=== PATIENT | female | born 1975 | race Caucasian/White ===

== ENCOUNTER → 2019-10-10 | Outpatient (CLI) | payer MEDICARE, MEDICAID, SELFPAY | PROVIDERS: Family Provider Nurse Practitioner Family; PCP Nurse Practitioner Family; Referring Provider Specialist; Visit Provider Specialist | DX: G35 Multiple sclerosis (principal) | CPT/HCPCS: 36415; 96365; 96366; J2350; J2930; J7040 ==

== ENCOUNTER 2019-11-07 19:48 | Emergency (ER) | payer MEDICARE, MEDICAID, SELFPAY ==
[2019-11-07 19:56] VITALS: BP 83/68; PULSE 90; RESP 18; TEMP 36.4; O2SAT 96; BMI 36.2
--- NOTE | 2019-11-07 21:01 | ED_ITS ---
Entered by Abbey Dutta, acting as scribe for Nia Vasquez HPI - Fever General: Chief Complaint: Fever Stated Complaint: fever/possible uti Time Seen by Provider: 11/07/19 21:01 Source: patient and family Mode of arrival: ambulatory History of Present Illness: HPI Narrative: 44 y/o female presents to the ED with complaint of fever. Pt states she has been recovering from a cough for the past month. It has progressively improved and is now nearly gone. She reports having abd pain that started 3 days ago. Last night she started having chills and fever. 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 Pt states she has a hx of MS and fibromyalgia. Pts bp rechecked during exam, 134/84. She also complains of burning when she urinates and urinary frequency and urgency. She states that she does not have any abdominal pain only the urinary symptoms. MD elicited complaint: fever Onset (ago): day(s) (last night) Associated symptoms: Reports abdominal pain, back/flank pain, chills and myalgias; Deny chest pain, confusion, diarrhea, dysuria, extremity pain, headache(s), nausea or vomiting Treatments prior to arrival fever: ibuprofen Review of Systems General: Reports: other (negative unless marked) Const: Reports: chills; Denies: fever, body aches, fatigue, malaise or diaphoresis Eyes: Denies: change in vision or blurry vision ENMT: Denies: throat pain, painful swallowing, hoarseness, ear pain, ear discharge, Change in hearing or nasal discharge Card: Denies: chest pain, palpitations, irregular heart rhythm, syncope, pre- syncope, shortness of breath on exertion or shortness of breath when lying down Resp: Denies: shortness of breath, productive cough, non-productive cough, wheezing, coughing up blood or chest congestion GI: Reports: abdominal pain; Denies: nausea, vomiting, vomiting blood, coffee grounds in vomit, diarrhea, constipation, cramping, blood in stool or black tarry stool : Reports: flank pain; Denies: painful urination, urinary frequency, urinary urgency, decreased urine ouput, urinary incontinence or blood in urine Musc: Denies: neck pain, back pain, extremity pain, extremity swelling, joint pain, joint swelling, joint warmth or joint stiffness Skin/Breast: Denies: rash, skin tenderness or yellow skin Neuro: Denies: headache, numbness in extremities, weakness in extremities, changes in sensation, lack of coordination, difficulty walking, dizziness, vertigo or confusion Endo: Denies: excessive thirst, tired all the time, cold intolerance, excessive sweating, flushing or hot flashes Floyd/Lymph: Denies: easy bruising, easy bleeding, petechiae or enlarged lymph nodes All/Imm: Denies: hives, throat swelling, tongue swelling, facial swelling or acute wheezing PFSH ED PFSH: Statuses (acute, chronic, etc) shown below reflect problem list status as previously entered and may not be historically accurate Medical History Bipolar disorder, current episode depressed, severe, without psychotic features (Acute) Borderline personality disorder (Acute) Chronic posttraumatic stress disorder (Acute) Cigarette nicotine dependence (Acute) Generalized anxiety disorder (Acute) Other obsessive-compulsive disorder (Acute) Panic disorder without agoraphobia (Acute) Social History Smoking and tobacco status: current every day smoker Physical Exam Const: COMMON NORMALS: no apparent distress, oriented x3, no limitations, healthy appearing and well nourished EXAM LIMITATIONS: no altered mental status GENERAL APPEARANCE: cooperative, well kempt and well developed ORIENTATION/CONSCIOUSNESS: Yes awake HENMT: COMMON NORMALS: normocephalic, head/scalp atraumatic, hearing grossly normal bilaterally, external ears normal, EAC's normal, external nose normal and moist oral mucous membranes HEAD & SCALP: normal to inspection, normocephalic and atraumatic FACE & SINUS: normal facial exam and face symmetric NOSE: external nose normal and nares normal EXTERNAL EAR: Yes external ears normal EXTERNAL AUDITORY CANAL: EAC's normal MOUTH: oral and palatal mucosa normal and tongue normal Eye: COMMON NORMALS: PERRL, EOMs intact bilaterally, conjunctivae normal and no scleral icterus GENERAL EYE: normal appearance of both eyes and normal light reflex CONJUNCTIVA: Yes conjunctivae normal SCLERA: sclerae normal CORNEA: Yes corneas normal PUPIL: Yes PERRL DIRECT OPHTHALMOSCOPY: Yes normal light reflex Neck/C-Spine: COMMON NORMALS: full ROM, no lymphadenopathy, supple, no meningeal signs and no JVD GENERAL: Yes normal visual inspection and Yes trachea midline CERVICAL SPINE: Yes cervical ROM normal Chest: COMMONS NORMALS: inspection of chest normal and palpation of chest normal Resp: COMMON NORMALS: normal respiratory effort, no retractions, no use of accessory muscles and clear to auscultation bilaterally EFFORT & INSPECTION: Yes able to speak in complete sentences AUSCULTATION: clear to auscultation bilaterally Cardio: COMMON NORMALS: no JVD, regular rate, regular rhythm, S1 normal heart sound, S2 normal heart sound, no gallops, no clicks, no murmurs and no rub JUGULAR VENOUS DISTENTION: no JVD RATE: regular rate RHYTHM: regular rhythm HEART SOUNDS: S1 normal and S2 normal GI: COMMON NORMALS: soft to palpation, non-tender, no hepatosplenomegaly and no masses INSPECTION: Yes normal to inspection PALPATION: Yes soft and Yes no hepatosplenomegaly : COMMON NORMALS: Yes no CVA tenderness BLADDER/KIDNEY EXAM: Yes no CVA tenderness Back/Pelvis: COMMON NORMALS: no CVA tenderness, thoracic and lumbar spine normal to inspection, no thoracic nor lumbar tenderness and thoraco-lumbar ROM normal Extremity: COMMON NORMALS: normal to inspection, full ROM, normal capillary refill, no joint enlargement, no clubbing, cyanosis or edema and no calf tenderness Neuro: COMMON NORMALS: oriented x3, CN's II-XII intact bilaterally, moves all extremities, no focal motor deficits and no sensory deficits noted MENINGEAL SIGNS: Yes no meningeal signs Psych: COMMON NORMALS: mental status grossly normal, thought process normal, cooperative, affect normal, speech normal and activity/motor behavior normal APPEARANCE: Yes well kempt SPEECH: Yes normal speech THOUGHT PROCESS: normal thought process Skin: COMMON NORMALS: no rashes or lesions noted, skin turgor normal, no jaundice, no petechiae and no mottling GENERAL SKIN EXAM: no rashes or lesions noted and turgor normal Course Vital Signs: Vital signs: Vital Signs Temperature 97.6 F 11/07/19 19:56 Pulse Rate 90 11/07/19 19:56 Respiratory Rate 18 11/07/19 19:56 Blood Pressure 83/68 11/07/19 19:56 Pulse Oximetry 96 11/07/19 19:56 MDM - Fever MDM Narrative: Medical decision making narrative: Odalys is a 44-year-old female who comes in complaining of fever and urinary frequency and urgency. Her CT scan was performed secondary to her having MS piña on board and I did not want to miss any occult intra-abdominal problem. The patient's appendix was not seen but she does not believe she has an appendix that she believes it was taken when she had her hysterectomy. There is no signs of appendicitis on CT. She is adamant that this is just a UTI and wants to go home. We will go ahead and give her fluids here, IV antibiotics and oral antibiotics for home. She denies wanting anything else done she does agree to return should her symptoms change or worsen. Lab Data: Attestation: I reviewed the patient's lab results. Labs: Lab Results 11/07/19 11/07/19 11/07/19 Range/Units 20:53 20:53 21:20 WBC 11.5 H (4.0-10.0) 10^3/ uL RBC 4.27 (4.1-5.3) 10^6/u L Hgb 13.3 (11.5-15.3) g/dL Hct 41.0 (37.0-47.0) % MCV 96.0 (81-99) fL MCH 31.1 (28.0-34.0) pg MCHC 32.4 (30.0-36.0) g/dL RDW 12.3 (12.1-15.1) % Plt Count 306 (130-400) 10^3/c mm MPV 10.0 (7.4-10.4) fL Neut % (Auto) 64.0 % Lymph % (Auto) 26.4 % [place] % (Auto) 7.0 % Eos % (Auto) 1.8 % Baso % (Auto) 0.5 % Neut # (Auto) 7.4 (1.8-7.7) 10^3/u L Lymph # (Auto) 3.0 (0.8-4.8) 10^3/u L [place] # (Auto) 0.8 (0.2-0.9) 10^3/u L Eos # (Auto) 0.2 (0.0-0.8) 10^3/u L Baso # (Auto) 0.1 (0.0-0.1) 10^3/u L Nucleated RBC % (a uto) 0 % Nucleated RBCs # 0.0 /100WBC Sodium (136-145) mmol/L Potassium (3.5-5.1) mmol/L Chloride (98-107) mmol/L Carbon Dioxide (22-29) mmol/L Anion Gap (5-19) BUN (6-20) mg/dL Creatinine (0.5-0.9) mg/dL GFR Calculation (90-130) mL/min Glucose (74-109) mg/dL Lactic Acid (0.5-2.2) mmol/L Calcium (8.6-10.0) mg/Dl Magnesium (1.7-2.3) mg/dL Total Bilirubin (0.15-1.2) mg/dL AST (0-32) U/L ALT (0-33) U/L Alkaline Phosphata se (35-105) IU/L Total Protein (6.6-8.7) g/dL Albumin (3.5-5.2) g/dL Globulin (1.3-4.6) g/dL Lipase (13-60) U/L HCG, Qual Negative (Negative) Urine Color Yellow (Yellow) Urine Appearance Hazy A (CLEAR) Urine pH 5 (5-7) Ur Specific Gravit y 1.025 (1.005-1.030) Urine Protein Trace (Negative) Urine Glucose (UA) Norm (Normal) Urine Ketones Negative (Negative) Urine Occult Blood 3+ H (Negative) Urine Nitrate Negative (Negative) Urine Bilirubin Neg (NEGATIVE) Urine Urobilinogen Norm (Negative) mg/dL Ur Leukocyte Yuliet ase Trace H (Negative) Urine RBC 0-4 H (0-2) /hpf Urine WBC 15-25 H (0-5) /hpf Ur Squamous Epith Cells 5-10 H (0-5) Urine Bacteria 2+ H (NONE) 11/07/19 11/07/19 Range/Units 21:20 21:20 WBC (4.0-10.0) 10^3/ uL RBC (4.1-5.3) 10^6/u L Hgb (11.5-15.3) g/dL Hct (37.0-47.0) % MCV (81-99) fL MCH (28.0-34.0) pg MCHC (30.0-36.0) g/dL RDW (12.1-15.1) % Plt Count (130-400) 10^3/c mm MPV (7.4-10.4) fL Neut % (Auto) % Lymph % (Auto) % [place] % (Auto) % Eos % (Auto) % Baso % (Auto) % Neut # (Auto) (1.8-7.7) 10^3/u L Lymph # (Auto) (0.8-4.8) 10^3/u L [place] # (Auto) (0.2-0.9) 10^3/u L Eos # (Auto) (0.0-0.8) 10^3/u L Baso # (Auto) (0.0-0.1) 10^3/u L Nucleated RBC % (a uto) % Nucleated RBCs # /100WBC Sodium 137 (136-145) mmol/L Potassium 3.5 (3.5-5.1) mmol/L Chloride 102 (98-107) mmol/L Carbon Dioxide 26 (22-29) mmol/L Anion Gap 12.5 (5-19) BUN 12 (6-20) mg/dL Creatinine 1.0 H (0.5-0.9) mg/dL GFR Calculation 59.7 L (90-130) mL/min Glucose 115 H (74-109) mg/dL Lactic Acid 1.2 (0.5-2.2) mmol/L Calcium 10.1 H (8.6-10.0) mg/Dl Magnesium 2.2 (1.7-2.3) mg/dL Total Bilirubin 0.2 (0.15-1.2) mg/dL AST 13 (0-32) U/L ALT 14 (0-33) U/L Alkaline Phosphata se 102 (35-105) IU/L Total Protein 7.2 (6.6-8.7) g/dL Albumin 4.3 (3.5-5.2) g/dL Globulin 2.9 (1.3-4.6) g/dL Lipase 17 (13-60) U/L HCG, Qual (Negative) Urine Color (Yellow) Urine Appearance (CLEAR) Urine pH (5-7) Ur Specific Gravit y (1.005-1.030) Urine Protein (Negative) Urine Glucose (UA) (Normal) Urine Ketones (Negative) Urine Occult Blood (Negative) Urine Nitrate (Negative) Urine Bilirubin (NEGATIVE) Urine Urobilinogen (Negative) mg/dL Ur Leukocyte Yuliet ase (Negative) Urine RBC (0-2) /hpf Urine WBC (0-5) /hpf Ur Squamous Epith Cells (0-5) Urine Bacteria (NONE) Discharge Plan Discharge Patient Disposition: Home, Self-Care Clinical Impression: UTI (urinary tract infection) Qualifiers: Urinary tract infection type: acute cystitis Hematuria presence: without hematuria Qualified Code(s): N30.00 - Acute cystitis without hematuria Condition: Stable Prescriptions: New Cipro 500 mg tablet 500 mg PO BID Qty: 20 RF: 0 No Action oxycodone 15 mg tablet 15 mg PO Q6H PRNRF: 0 aripiprazole [Abilify] 20 mg tablet 20 mg PO .QHS RF: 0 duloxetine [Cymbalta] 60 mg capsule,delayed release(DR/EC) 60 mg PO .EVENING RF: 0 hydroxyzine HCl 50 mg tablet 50 mg PO BID PRN (Reason: anxiety) RF: 0 trazodone 150 mg tablet See Rx Instructions PO .QHS PRN (Reason: sleep) RF: 0 methylphenidate HCl [Ritalin] 20 mg tablet 20 mg PO QAM RF: 0 baclofen 5 mg tablet 5 mg PO QID RF: 0 Discharge Orders: Discharge Order (Routine); Ordered 11/07/19 Ordered By: Nia Vasquez Referrals: Giacomo Mojica, STRATEGIC PLANNING SPECIALIST [Primary Care Provider] - 1-3 days Discharge Diet: Usual diet Discharge Activity: Increase activity as tolerated Patient Instructions: Urinary Tract Infection in Women (ED), Dysuria (ED) Activity Restrictions/Additional Instructions: Please return to the ER immediately for any of the signs or symptoms listed on your discharge instruction sheets, worsening/changing of your symptoms, you are not getting better as quickly as expected, or for ANY other cause or concerns. Return to the ER for worsening pain, fever, vomiting, or for any other cause for concern. Coding Level of Care Code ED Educational Adviser for Chg Fwd Exam Problem Focused The documentation recorded by the Tra gresham Ashley, accurately reflects the service I personally performed and the decisions made by Pedro najera Eli N Nov 07, 2019 19:48
--- NOTE | 2019-11-07 21:07 | CTR_ITS ---
PROCEDURE INFORMATION: Exam: CT Abdomen And Pelvis With Contrast Exam date and time: 11/07/2019 9:09 PM Age: 44 years old Clinical indication: Fever and other: UTI; Additional info: Abdominal pain TECHNIQUE: Imaging protocol: Computed tomography of the abdomen and pelvis with intravenous contrast. Total DLP: 1372.65 mGy-cm Radiation optimization: All CT scans at this facility use at least one of these dose optimization techniques: automated exposure control; mA and/or kV adjustment per patient size (includes targeted exams where dose is matched to clinical indication); or iterative reconstruction. Contrast material: OMNI 300; Contrast volume: 95 ml; Contrast route: LT AC; COMPARISON: CT abdomen pelvis w con* [id number] 08/12/2017 4:04 PM FINDINGS: Liver: Normal. No mass. Gallbladder and bile ducts: Cholecystectomy. The bile ducts are normal. Pancreas: Normal. No ductal dilation. Spleen: Normal. No splenomegaly. Adrenals: Normal. No mass. Kidneys and ureters: Normal. No hydronephrosis. Stomach and bowel: Mild diverticulosis of the sigmoid colon without diverticulitis. Appendix: The appendix is not visualized. Intraperitoneal space: Unremarkable. No free air. No significant fluid collection. Vasculature: Unremarkable. No abdominal aortic aneurysm. Lymph nodes: Unremarkable. No enlarged lymph nodes. Bladder: See Reproductive Finding. Reproductive: The uterus and ovaries are not visualized. Mild circumferential wall thickening of the urinary bladder measuring up to 7 mm. Bones/joints: Unremarkable. No acute fracture. Soft tissues: Unremarkable. CT/CT abdomen pelvis w con* [id number] IMPRESSION: 1. Mild cystitis. Radiation Dose CTDIVOL = (mGy): DLP = 1372.65 (mGy-cm)
--- NOTE | 2019-11-07 21:07 | XRR_ITS ---
PROCEDURE INFORMATION: Exam: XR Chest, 1 View Exam date and time: 11/07/2019 9:09 PM Age: 44 years old Clinical indication: Cough TECHNIQUE: Imaging protocol: XR of the chest Views: 1 view. COMPARISON: CR Chest 1 [place] [id number] 05/08/2019 5:21 PM FINDINGS: Lungs: Unremarkable. No consolidation. Pleural space: Unremarkable. No pleural effusion. No pneumothorax. Heart/Mediastinum: Unremarkable. No cardiomegaly. Bones/joints: Unremarkable. XR/XR chest 1V portable [id number] IMPRESSION: No acute findings.
[2019-11-07 21:10] LABS: Specific Gravity, Urine 1.025 (1.005-1.030); Urine Appearance Hazy (CLEAR); Urine Color Yellow (Yellow); pH Urine 5 (5-7)
[2019-11-07 21:11] LABS: Add Urine Microscopic? YES; Bilirubin Urine Neg (NEGATIVE); Blood Urine 3+ (Negative); Glucose Urine UA Norm (Normal); Ketones Urine Negative (Negative); Leukocyte Esterase Urine Trace (Negative); Nitrate Urine Negative (Negative); Protein Urine Trace (Negative); Urobilinogen Urine Norm (Negative)
[2019-11-07 21:13] LABS: Add Urine Culture? Yes; Bacteria Urine 2+; RBC Urine 0-4 /hpf (0-2); WBC Urine 15-25 /hpf (0-5)
[2019-11-07 21:32] LABS: HCG Qualitative Urine. Negative (Negative)
[2019-11-07 21:33] LABS: Basophils # 0.1 10^3/uL (0.0-0.1); Basophils % 0.5 %; Eosinophils # 0.2 10^3/uL (0.0-0.8); Eosinophils % 1.8 %; Hemoglobin 13.3 g/dL (11.5-15.3); Lymphocytes % 26.4 %; Mean Corpuscular HGB Conc 32.4 g/dL (30.0-36.0); Mean Corpuscular Hemoglobin 31.1 pg (28.0-34.0); Monocytes # 0.8 10^3/uL (0.2-0.9); Neutrophils # 7.4 10^3/uL (1.8-7.7); Nucleated Red Blood Cells % 0 %; Platelet Count 306 10^3/cmm (130-400); Red Blood Count 4.27 10^6/uL (4.1-5.3); Red Cell Distribution Width 12.3 % (12.1-15.1); White Blood Count 11.5 10^3/uL (4.0-10.0)
[2019-11-07] MEDS: iohexol 300 mg/mL 100 mL Btl IV (21:51)
[2019-11-07 21:53] LABS: Alanine Aminotransferase 14 U/L (0-33); Albumin Level 4.3 g/dL (3.5-5.2); Alkaline Phosphatase 102 IU/L (35-105); Anion Gap 12.5 (5-19); Aspartate Amino Transferase 13 U/L (0-32); Blood Urea Nitrogen 12 mg/dL (6-20); Calcium 10.1 mg/Dl (8.6-10.0); Carbon Dioxide 26 mmol/L (22-29); Chloride 102 mmol/L (98-107); Globulin 2.9 g/dL (1.3-4.6); Glomerular Filtration Rate 59.7 mL/min (90-130); Glucose 115 mg/dL (74-109); Lactic Sepsis W/Reflex 1.2 mmol/L (0.5-2.2); Lipase 17 U/L (13-60); Magnesium 2.2 mg/dL (1.7-2.3); Potassium 3.5 mmol/L (3.5-5.1); Sodium 137 mmol/L (136-145); Total Bilirubin 0.2 mg/dL (0.15-1.2); Total Protein 7.2 g/dL (6.6-8.7)
[2019-11-07] MEDS: cefTRIAXone 2,000 MG in sodium chloride 0.9% (plus) 50 ML 100 MG IV (22:32)
[2019-11-07] MEDS: ciprofloxacin 500 mg Tablet PO (22:36)
[2019-11-07] MEDS: phenazopyridine 100 mg Tablet 200 MG PO (22:42)
[2019-11-08 00:45] VITALS: TEMP 36.7
--- NOTE | 2019-11-08 00:45 | PC.NURSE ---
Patient stated that she still felt like she had a fever, checked temp and does not have one at this time.
[2019-11-08 01:14] VITALS: BP 139/71; PULSE 82; RESP 16; O2SAT 100
== END 2019-11-08 01:16 | disposition home or self-care (01) ==
PROVIDERS: Emergency Medicine; Emergency Provider Emergency Medicine; Family Provider Nurse Practitioner Family; PCP Nurse Practitioner Family
DX: N30.00 Acute cystitis without hematuria (principal); F17.210 Nicotine dependence, cigarettes, uncomplicated
CPT/HCPCS: 71045; 74177; 80053; 81003; 81025; 83605; 83690; 83735; 85025; 87040; 87077; 87086; 87186; 96360; 96361; 96365; 99281; J0696; J7030; Q9967

== ENCOUNTER → 2019-11-14 16:35 | Outpatient (BNVA) | payer MEDICARE, MEDICAID, SELFPAY | PROVIDERS: Family Provider Nurse Practitioner Family; PCP Nurse Practitioner Family; Visit Provider Nurse Practitioner Family | DX: N30.00 Acute cystitis without hematuria (principal); M54.5 Low back pain; L81.9 Disorder of pigmentation, unspecified; D22.9 Melanocytic nevi, unspecified; M54.16 Radiculopathy, lumbar region | CPT/HCPCS: 81003 ==

== ENCOUNTER → 2019-11-21 14:19 | Outpatient (BNVA) | payer MEDICARE, MEDICAID, SELFPAY | PROVIDERS: Family Provider Nurse Practitioner Family; PCP Nurse Practitioner Family; Visit Provider Nurse Practitioner | DX: M47.816 Spondylosis without myelopathy or radiculopathy, lumbar region (principal); M54.16 Radiculopathy, lumbar region; M54.2 Cervicalgia; F17.210 Nicotine dependence, cigarettes, uncomplicated; Z79.891 Long term (current) use of opiate analgesic | CPT/HCPCS: 99214 ==

== ENCOUNTER → 2019-12-01 09:46 | Outpatient (BNVA) | payer OTHER, SELFPAY | PROVIDERS: Family Provider Nurse Practitioner Family; PCP Nurse Practitioner Family; Visit Provider Counselor Professional | DX: F41.0 Panic disorder [episodic paroxysmal anxiety] (principal); F42.8 Other obsessive-compulsive disorder; F41.1 Generalized anxiety disorder; F31.4 Bipolar disorder, current episode depressed, severe, without psychotic features | CPT/HCPCS: 90834; 80061; 83036 ==

== ENCOUNTER → 2019-12-10 12:06 | Outpatient (BNVA) | payer MEDICARE, SELFPAY | PROVIDERS: Family Provider Nurse Practitioner Family; PCP Nurse Practitioner Family; Visit Provider Nurse Practitioner Family | DX: D51.9 Vitamin B12 deficiency anemia, unspecified (principal); R53.83 Other fatigue; N39.0 Urinary tract infection, site not specified; E53.9 Vitamin B deficiency, unspecified; F17.210 Nicotine dependence, cigarettes, uncomplicated; R94.4 Abnormal results of kidney function studies | CPT/HCPCS: 80053; 81001; 82575; 83735; 84100; 84156; 84550 ==

== ENCOUNTER → 2019-12-19 13:47 | Outpatient (BNVA) | payer MEDICARE, MEDICAID, SELFPAY | PROVIDERS: Family Provider Nurse Practitioner Family; PCP Nurse Practitioner Family; Visit Provider Nurse Practitioner | DX: M47.816 Spondylosis without myelopathy or radiculopathy, lumbar region (principal); M54.16 Radiculopathy, lumbar region; F17.210 Nicotine dependence, cigarettes, uncomplicated; Z79.891 Long term (current) use of opiate analgesic; Z71.6 Tobacco abuse counseling | CPT/HCPCS: 99215 ==

== ENCOUNTER 2020-01-18 16:34 | Emergency (ER) | payer MEDICARE, MEDICAID, SELFPAY ==
[2019-12-03 11:43] VITALS: BP 125/85; BMI 34.7
[2020-01-18 16:40] VITALS: PULSE 91; RESP 18; TEMP 36.4; O2SAT 98; BMI 34.1
--- NOTE | 2020-01-18 17:01 | ED_ITS ---
HPI - Female Genitourinary General: Chief complaint: Urogenital-Female Stated complaint: COUGH; DIARRHEA; R ABD PAIN Time Seen by Provider: 01/18/20 17:00 History of Present Illness: HPI Narrative: 45-year-old female right flank pain complaining of what she feels to be a kidney infection she has had some before. She denies any fever sweats chills nausea vomiting or diarrhea Associated symptoms: Deny abdominal pain or nausea Review of Systems Const: Denies: fever, chills, body aches, change in appetite, fatigue or malaise ENMT: Denies: throat pain, ear pain, nasal discharge or nasal congestion Card: Denies: chest pain, edema, shortness of breath on exertion or shortness of breath when lying down Resp: Denies: shortness of breath, productive cough or non-productive cough GI: Denies: abdominal pain, nausea, vomiting, vomiting blood, coffee grounds in vomit, diarrhea, constipation, bloating, blood in stool or black tarry stool : Reports: flank pain; Denies: difficulty urinating, painful urination, urinary frequency or urinary urgency Skin/Breast: Denies: rash or itching PFSH ED PFSH: Social History Smoking and tobacco status: current every day smoker cigarettes Packs smoked per day: 0.5 Alcohol intake: never Lives independently: Yes History of recent travel: No Physical Exam Const: COMMON NORMALS: no apparent distress GENERAL APPEARANCE: cooperative and comfortable ORIENTATION/CONSCIOUSNESS: Yes awake, Yes oriented to person, Yes oriented to place and Yes oriented to time HENMT: COMMON NORMALS: normocephalic, head/scalp atraumatic, hearing grossly normal bilaterally, external ears normal, EAC's normal, TM's normal bilaterally, nasal mucous membranes and turbinates normal, moist oral mucous membranes and oropharynx normal HEAD & SCALP: normocephalic and atraumatic NOSE: nasal mucous membranes and turbinates normal EXTERNAL EAR: Yes external ears normal EXTERNAL AUDITORY CANAL: EAC's normal TYMPANIC MEMBRANE: TM's normal bilaterally Eye: COMMON NORMALS: PERRL, EOMs intact bilaterally, conjunctivae normal and no scleral icterus CONJUNCTIVA: Yes conjunctivae normal PUPIL: Yes PERRL Neck/C-Spine: COMMON NORMALS: full ROM, no lymphadenopathy, supple and no JVD Lymph: LYMPHATIC: no lymphadenopathy noted and no lymphedema noted Resp: COMMON NORMALS: normal respiratory effort, no retractions, no use of accessory muscles and clear to auscultation bilaterally AUSCULTATION: clear to auscultation bilaterally Cardio: COMMON NORMALS: no JVD, regular rate, regular rhythm and no murmurs RATE: regular rate RHYTHM: regular rhythm GI: COMMON NORMALS: soft to palpation and no hepatosplenomegaly AUSCULTATION: Yes normoactive bowel sounds PALPATION: Yes soft, No tender, No guarding and Yes no hepatosplenomegaly : BLADDER/KIDNEY EXAM: Yes CVA tenderness on the right Back/Pelvis: GENERAL BACK: Yes CVA tenderness Extremity: COMMON NORMALS: normal to inspection, normal capillary refill, no clubbing, cyanosis or edema, no calf tenderness and no pedal edema Neuro: SENSORIUM/ORIENTATION: Yes oriented to person, Yes oriented to place and Yes oriented to time Skin: COMMON NORMALS: no rashes or lesions noted GENERAL SKIN EXAM: no rashes or lesions noted Course Vital Signs: Vital signs: Vital Signs Temperature 97.6 F 01/18/20 16:40 Pulse Rate 91 01/18/20 16:40 Respiratory Rate 18 01/18/20 16:40 Pulse Oximetry 98 01/18/20 16:40 MDM - Female MDM Narrative: Medical decision making narrative: Patient initially seen by myself and turned over to Dr. Sood. UA was negative chest x-ray unremarkable patient treated for musculoskeletal pain from bronchitis. Lab Data: Labs: Lab Results 01/18/20 01/18/20 01/18/20 Range/Units 17:08 18:21 18:21 WBC 8.8 (4.0-10.0) 10^3/ uL RBC 4.48 (4.1-5.3) 10^6/u L Hgb 13.9 (11.5-15.3) g/dL Hct 42.3 (37.0-47.0) % MCV 94.4 (81-99) fL MCH 31.0 (28.0-34.0) pg MCHC 32.9 (30.0-36.0) g/dL RDW 11.9 L (12.1-15.1) % Plt Count 295 (130-400) 10^3/c mm MPV 10.0 (7.4-10.4) fL Neut % (Auto) 68.4 % Lymph % (Auto) 22.5 % Stone % (Auto) 7.0 % Eos % (Auto) 1.2 % Baso % (Auto) 0.7 % Neut # (Auto) 6.0 (1.8-7.7) 10^3/u L Lymph # (Auto) 2.0 (0.8-4.8) 10^3/u L Stone # (Auto) 0.6 (0.2-0.9) 10^3/u L Eos # (Auto) 0.1 (0.0-0.8) 10^3/u L Baso # (Auto) 0.1 (0.0-0.1) 10^3/u L Nucleated RBC % (a uto) 0 % Nucleated RBCs # 0.0 /100WBC Sodium 141 (136-145) mmol/L Potassium 3.4 L (3.5-5.1) mmol/L Chloride 103 (98-107) mmol/L Carbon Dioxide 26 (22-29) mmol/L Anion Gap 15.4 (5-19) BUN 11 (6-20) mg/dL Creatinine 0.9 (0.5-0.9) mg/dL GFR Calculation 67.1 L (90-130) mL/min Glucose 120 H (65-115) mg/dL Calculated Osmolal ity 289 (285-295) mOsm/k g Calcium 10.2 (8.5-10.5) mg/dL Total Bilirubin 0.2 (0.15-1.2) mg/dL AST 22 (0-32) U/L ALT 29 (0-33) U/L Alkaline Phosphata se 89 (35-105) IU/L Total Protein 7.3 (6.6-8.7) g/dL Albumin 4.2 (3.5-5.2) g/dL Globulin 3.1 (1.3-4.6) g/dL Urine Color Yellow (Yellow) Urine Appearance Clear (CLEAR) Urine pH 6 (5-7) Ur Specific Gravit y 1.010 (1.005-1.030) Urine Protein Neg (Negative) Urine Glucose (UA) Norm (Normal) Urine Ketones Negative (Negative) Urine Blood Neg (Negative) Urine Nitrate Negative (Negative) Urine Bilirubin Neg (NEGATIVE) Urine Urobilinogen Norm (Negative) mg/dL Ur Leukocyte Yuliet ase Negative (Negative) Influenza Type A A g (Negative) POC Influenza B Ag (Negative) 01/18/20 Range/Units 18:40 WBC (4.0-10.0) 10^3/ uL RBC (4.1-5.3) 10^6/u L Hgb (11.5-15.3) g/dL Hct (37.0-47.0) % MCV (81-99) fL MCH (28.0-34.0) pg MCHC (30.0-36.0) g/dL RDW (12.1-15.1) % Plt Count (130-400) 10^3/c mm MPV (7.4-10.4) fL Neut % (Auto) % Lymph % (Auto) % Stone % (Auto) % Eos % (Auto) % Baso % (Auto) % Neut # (Auto) (1.8-7.7) 10^3/u L Lymph # (Auto) (0.8-4.8) 10^3/u L Stone # (Auto) (0.2-0.9) 10^3/u L Eos # (Auto) (0.0-0.8) 10^3/u L Baso # (Auto) (0.0-0.1) 10^3/u L Nucleated RBC % (a uto) % Nucleated RBCs # /100WBC Sodium (136-145) mmol/L Potassium (3.5-5.1) mmol/L Chloride (98-107) mmol/L Carbon Dioxide (22-29) mmol/L Anion Gap (5-19) BUN (6-20) mg/dL Creatinine (0.5-0.9) mg/dL GFR Calculation (90-130) mL/min Glucose (65-115) mg/dL Calculated Osmolal ity (285-295) mOsm/k g Calcium (8.5-10.5) mg/dL Total Bilirubin (0.15-1.2) mg/dL AST (0-32) U/L ALT (0-33) U/L Alkaline Phosphata se (35-105) IU/L Total Protein (6.6-8.7) g/dL Albumin (3.5-5.2) g/dL Globulin (1.3-4.6) g/dL Urine Color (Yellow) Urine Appearance (CLEAR) Urine pH (5-7) Ur Specific Gravit y (1.005-1.030) Urine Protein (Negative) Urine Glucose (UA) (Normal) Urine Ketones (Negative) Urine Blood (Negative) Urine Nitrate (Negative) Urine Bilirubin (NEGATIVE) Urine Urobilinogen (Negative) mg/dL Ur Leukocyte Yuliet ase (Negative) Influenza Type A A g Negative (Negative) POC Influenza B Ag Negative (Negative) Discharge Plan Discharge Patient Disposition: Home, Self-Care Clinical Impression: Acute flank pain Condition: Stable Prescriptions: New Tessalon Perles 100 mg capsule 100 mg PO Q6H PRN (Reason: cough) Qty: 30 RF: 0 No Action trazodone 150 mg tablet 300 mg PO .QHS PRN (Reason: sleep) Qty: 60 RF: 3 aripiprazole [Abilify] 20 mg tablet 20 mg PO BEDTIME Qty: 30 RF: 4 duloxetine [Cymbalta] 60 mg capsule,delayed release(DR/EC) 60 mg PO .morning Qty: 30 RF: 4 hydroxyzine HCl 50 mg tablet 50 mg PO DAILY PRN (Reason: anxiety) Qty: 30 RF: 4 hydrochlorothiazide 25 mg tablet 37.5 mg PO DAILY RF: 0 potassium chloride [Klor-Con 10] 10 mEq tablet extended release 15 meq PO DAILY RF: 0 zonisamide [Zonegran] 100 mg capsule 500 mg PO DAILY RF: 0 Myrbetriq 25 mg tablet extended release 24 hr 25 mg PO Q24H RF: 0 Dexilant 60 mg capsule,biphase delayed releas 60 mg PO DAILY RF: 0 levocetirizine [Xyzal] 5 mg tablet 5 mg PO DAILY RF: 0 cholecalciferol (vitamin D3) 25 mcg (1,000 unit) tablet 1,000 unit PO DAILY RF: 0 jprthuigdjvl-Ru-gjpd-minerals 18-0.4 mg tablet 1 tab PO DAILY RF: 0 ibuprofen 800 mg tablet 800 mg PO BID Qty: 180 RF: 2 oxycodone 15 mg tablet 15 mg PO TID PRN (Reason: pain) 30 Days Qty: 90 RF: 0 methylprednisolone acetate [Depo-Medrol] 40 mg/mL suspension 40 mg Infiltration ONCE Qty: 1 RF: 0 cyanocobalamin (vitamin B-12) 1,000 mcg/mL solution 1,000 mcg IM .weekly 28 Days Qty: 4 RF: 1 (DME) insulin syringe-needle U-100 [Advocate Syringes] 1 mL 29 gauge x 1/2 syringe See Rx Instructions .ROUTE .MEDSUPPLY Qty: 10 RF: 1 Linzess 290 mcg capsule 290 mcg PO QAM Qty: 30 RF: 2 simvastatin 10 mg tablet 10 mg PO DAILY RF: 0 baclofen 20 mg tablet 20 mg PO BEDTIME RF: 0 azelastine 137 mcg (0.1 %) Aerosol,[place] 1 spray INTRANASAL BID RF: 0 fluticasone propionate 50 mcg/actuation [place],Suspension 1 spray INTRANASAL BID RF: 0 magnesium oxide 400 mg magnesium Tablet 400 mg PO Q6H RF: 0 Discharge Orders: Discharge Order (Routine); Ordered 01/18/20 Ordered By: Thierry Sood Referrals: Giacomo Mojica, TECHNICAL SUPPORT ASSISTANT [Primary Care Provider] - Discharge Diet: Usual diet Discharge Activity: Increase activity as tolerated Patient Instructions: Flank Pain (ED) Activity Restrictions/Additional Instructions: Return for fever greater than 100, vomiting liquids or medications, worsening pain, other concerning symptoms. Your urine was clear without blood or infection today. Discharge Date/Time: 01/18/20 20:45 Coding Level of Care Code ED International Coordinator for Robert Cornell
[2020-01-18 17:37] LABS: Add Urine Microscopic? NO
[2020-01-18 17:50] LABS: Urine Appearance Clear (CLEAR); Urine Color Yellow (Yellow); pH Urine 6 (5-7)
[2020-01-18 17:51] LABS: Bilirubin Urine Neg (NEGATIVE); Blood Urine Neg (Negative); Glucose Urine UA Norm (Normal); Ketones Urine Negative (Negative); Leukocyte Esterase Urine Negative (Negative); Nitrate Urine Negative (Negative); Protein Urine Neg (Negative); Urobilinogen Urine Norm (Negative)
--- NOTE | 2020-01-18 18:23 | XR_ITS ---
WS: [id number] PORTABLE CHEST HISTORY: dyspnea/cough COMPARISON: 11/07/2019 Lungs are clear and well expanded. No pleural effusion or pneumothorax. Cardiac size: Normal. Mediastinum/Aorta: Normal mediastinum. No osseous abnormality seen. XR/XR chest 1V portable [id number] IMPRESSION: Unremarkable portable chest.
[2020-01-18 18:32] LABS: Basophils # 0.1 10^3/uL (0.0-0.1); Basophils % 0.7 %; Eosinophils # 0.1 10^3/uL (0.0-0.8); Eosinophils % 1.2 %; Hematocrit 42.3 % (37.0-47.0); Hemoglobin 13.9 g/dL (11.5-15.3); Lymphocytes % 22.5 %; Mean Corpuscular HGB Conc 32.9 g/dL (30.0-36.0); Mean Corpuscular Volume 94.4 fL (81-99); Monocytes # 0.6 10^3/uL (0.2-0.9); Neutrophils % 68.4 %; Nucleated Red Blood Cells % 0 %; Platelet Count 295 10^3/cmm (130-400); Red Blood Count 4.48 10^6/uL (4.1-5.3); Red Cell Distribution Width 11.9 % (12.1-15.1); White Blood Count 8.8 10^3/uL (4.0-10.0)
[2020-01-18 19:00] LABS: Alanine Aminotransferase 29 U/L (0-33); Albumin Level 4.2 g/dL (3.5-5.2); Alkaline Phosphatase 89 IU/L (35-105); Anion Gap 15.4 (5-19); Aspartate Amino Transferase 22 U/L (0-32); Blood Urea Nitrogen 11 mg/dL (6-20); Calcium 10.2 mg/dL (8.5-10.5); Carbon Dioxide 26 mmol/L (22-29); Chloride 103 mmol/L (98-107); Globulin 3.1 g/dL (1.3-4.6); Glomerular Filtration Rate 67.1 mL/min (90-130); Glucose 120 mg/dL (65-115); Osmolality Calculated 289 mOsm/kg (285-295); Potassium 3.4 mmol/L (3.5-5.1); Sodium 141 mmol/L (136-145); Total Bilirubin 0.2 mg/dL (0.15-1.2); Total Protein 7.3 g/dL (6.6-8.7)
[2020-01-18 19:38] LABS: Influenza A by IFA Negative (Negative); Influenza B by IFA Negative (Negative)
== END 2020-01-18 20:45 | disposition home or self-care (01) ==
PROVIDERS: Family Medicine; Emergency Provider Emergency Medicine; Family Provider Nurse Practitioner Family; PCP Nurse Practitioner Family
DX: R10.9 Unspecified abdominal pain (principal); F17.210 Nicotine dependence, cigarettes, uncomplicated
CPT/HCPCS: 12345; 71045; 80053; 81003; 85025; 87804; 99282; 99283; A9270

== ENCOUNTER → 2020-01-19 08:14 | Outpatient (BNVA) | payer MEDICARE, MEDICAID, SELFPAY | PROVIDERS: Family Provider Nurse Practitioner Family; PCP Nurse Practitioner Family; Visit Provider Nurse Practitioner Psychiatric/Mental Health | DX: F31.4 Bipolar disorder, current episode depressed, severe, without psychotic features (principal); F41.0 Panic disorder [episodic paroxysmal anxiety]; F42.8 Other obsessive-compulsive disorder; F41.1 Generalized anxiety disorder; F60.3 Borderline personality disorder; F17.210 Nicotine dependence, cigarettes, uncomplicated; F43.12 Post-traumatic stress disorder, chronic | CPT/HCPCS: 99213 ==

== ENCOUNTER → 2020-02-16 08:10 | Outpatient (BNVA) | payer MEDICARE, MEDICAID, SELFPAY | PROVIDERS: Family Provider Nurse Practitioner Family; PCP Nurse Practitioner Family; Visit Provider Nurse Practitioner Psychiatric/Mental Health | DX: F31.4 Bipolar disorder, current episode depressed, severe, without psychotic features (principal); F41.0 Panic disorder [episodic paroxysmal anxiety]; F42.8 Other obsessive-compulsive disorder; F41.1 Generalized anxiety disorder; F60.3 Borderline personality disorder; F17.210 Nicotine dependence, cigarettes, uncomplicated; F43.12 Post-traumatic stress disorder, chronic | CPT/HCPCS: 99213 ==

== ENCOUNTER → 2020-03-16 08:14 | Outpatient (BNVA) | payer MEDICARE, MEDICAID, SELFPAY ==
[2019-12-03 11:43] VITALS: BP 125/85; BMI 34.7
== END ==
PROVIDERS: Family Provider Nurse Practitioner Family; PCP Nurse Practitioner Family; Visit Provider Nurse Practitioner Psychiatric/Mental Health
DX: F31.4 Bipolar disorder, current episode depressed, severe, without psychotic features (principal); F41.0 Panic disorder [episodic paroxysmal anxiety]; F42.8 Other obsessive-compulsive disorder; F17.210 Nicotine dependence, cigarettes, uncomplicated; F41.1 Generalized anxiety disorder; F60.3 Borderline personality disorder; F43.12 Post-traumatic stress disorder, chronic
CPT/HCPCS: 99213

== ENCOUNTER → 2020-03-25 10:21 | Outpatient (BNVA) | payer MEDICARE, MEDICAID, SELFPAY ==
[2019-12-03 11:43] VITALS: BP 125/85; BMI 34.7
== END ==
PROVIDERS: Family Provider Nurse Practitioner Family; PCP Nurse Practitioner Family; Visit Provider Nurse Practitioner
DX: M54.16 Radiculopathy, lumbar region (principal); M47.816 Spondylosis without myelopathy or radiculopathy, lumbar region; F41.0 Panic disorder [episodic paroxysmal anxiety]; F17.210 Nicotine dependence, cigarettes, uncomplicated; Z79.891 Long term (current) use of opiate analgesic
CPT/HCPCS: 99213

== ENCOUNTER 2020-04-05 14:39 | Outpatient (CLI) | payer MEDICARE, MEDICAID, SELFPAY ==
[2019-12-03 11:43] VITALS: BP 125/85; BMI 34.7
--- NOTE | 2020-04-05 15:15 | MR_ITS ---
WS: [id number] MRI LUMBAR SPINE NONCONTRAST TECHNIQUE: Sagittal T1, T2 and STIR imaging. Axial T1 and T2 imaging. CLINICAL INFORMATION: M54.16 Radiculopathy, lumbar region FINDINGS: Mild lumbar curve. No acute compression. No high-grade central canal stenosis. No acute compression f ractures. Cervical and thoracic spine are patent on the scout sniper imaging. Small central protrusion thora cic spine at T8-T9 with slight contact of the thoracic cord. Thoracic cord signal appears normal. Thi s can be followed up with thoracic spine MRI. L1-L2: Normal. L2-L3: No significant disc bulging. Spinal canal and foramen are patent. L3-L4: No significant disc bulging. Mild facet arthropathy. Spinal canal and foramen are patent. L4-L5: Mild annular bulging with slight narrowing of the subarticular recess bilaterally. Mild facet arthropathy. Foramen are patent. Slight encroachment traversing L5 nerve roots. L5-S1: Mild annular bulging with slight effacement of the ventral thecal sac. Mild facet arthropathy. Spinal canal and foramen are patent. Normal visualized pelvic bony structures. Small disc protrusions in the cervical spine at C5-C6 and C6-C7. MR/MR lumbar spine wo con* [id number] IMPRESSION: 1. Mild lumbar curve. No acute compression. No high-grade central canal stenos is. 2. Annular bulging L4-5 with narrowing of the subarticular recess bilaterally with slight encroachment traversing L5 nerve roots. Mild to moderate facet arth ropathy at this level with ligament flavum hypertrophy. 3. Mild annular bulging L5-S1 without significant spinal canal or foraminal na rrowing. Mild to moderate facet arthropathy. 4. Small central disc protrusion in the thoracic spine seen on the scout sniper imagi ng at T8-9 with slight contact of the thoracic cord. This could be further eval uated with thoracic spine MRI. 5. Mild disc bulging cervical spine at C5-C6 and C6-C7 without significant spi nal canal stenosis.
== END 2020-04-05 14:40 | disposition home or self-care (01) ==
LOC: RADSHAW 14:44
PROVIDERS: PCP Nurse Practitioner Family; Visit Provider Nurse Practitioner
DX: M54.16 Radiculopathy, lumbar region (principal); M47.816 Spondylosis without myelopathy or radiculopathy, lumbar region; M47.817 Spondylosis without myelopathy or radiculopathy, lumbosacral region; M51.24 Other intervertebral disc displacement, thoracic region; M50.223 Other cervical disc displacement at C6-C7 level
CPT/HCPCS: 72148

== ENCOUNTER 2020-04-07 07:54 | Outpatient (CLI) | payer MEDICARE, MEDICAID, SELFPAY ==
[2019-12-03 11:43] VITALS: BP 125/85; BMI 34.7
[2020-04-07] MEDS: diphenhydrAMINE 50 mg/mL SDV 1mL 25 MG IVP (08:30)
[2020-04-07] MEDS: acetaminophen 500 mg Tablet 1000 MG PO (08:30)
== END 2020-04-07 07:55 | disposition home or self-care (01) ==
LOC: NSACUTE 07:56
PROVIDERS: PCP Nurse Practitioner Family; Visit Provider Specialist
DX: G35 Multiple sclerosis (principal); F17.210 Nicotine dependence, cigarettes, uncomplicated
CPT/HCPCS: 96374; 96375; 99214; J1200; J2350; J2930; J7040

== ENCOUNTER 2020-04-07 23:52 | Emergency (ER) | payer MEDICARE, MEDICAID, SELFPAY ==
[2019-12-03 11:43] VITALS: BP 125/85; BMI 34.7
[2020-04-07 23:58] VITALS: BP 153/91; PULSE 87; RESP 16; TEMP 36.8; O2SAT 100; BMI 33.2
--- NOTE | 2020-04-08 00:19 | ED_ITS ---
HPI - Headache General: Chief Complaint: Headache Stated Complaint: headache/poss alergic reaction Time Seen by Provider: 04/08/20 00:06 History of Present Illness: HPI Narrative: Patient is a 45-year-old female comes to the ED with possible allergic reaction. Patient has a past medical history of multiple sclerosis and migraines. Patient states that earlier today she received her fourth Ocrevus IV infusion dose at Dr. Cheek's office. Preceding fusion of a crevice patient received a dose of Benadryl and Solu- Medrol to help with any possible allergic reaction. Patient denies having any allergic reaction to Ocrevus in prior doses. She states that about 3 hours later she started developing redness and flushing in her face, nausea, headache and fatigue. She then decided to come to the ED for evaluation. She has not taken any medication at home to help with her symptoms before arriving to the ED. She describes the headache an 8 out of 10 and described as all throughout her head. Denies any shortness of breath or throat swelling or palpitations. MD elicited complaint: headache Associated symptoms: Reports nausea and rash (face is red and flushed); Deny chest pain, fever(s) or vomiting Review of Systems Const: Denies: fever(s), chills or fatigue Eyes: Denies: change in vision or eye discomfort ENMT: Denies: throat pain, odynophagia, nasal discharge or nasal congestion Card: Denies: chest pain, palpitations, edema, swelling of feet/ankles, dyspnea on exertion or orthopnea Resp: Denies: dyspnea, productive cough or non-productive cough GI: Reports: nausea; Denies: abdominal pain, vomiting, diarrhea, constipation or hematochezia : Denies: flank pain, dysuria or hematuria Musc: Denies: neck pain, back pain or extremity swelling Skin/Breast: Reports: rash (face is red and flushed) and erythema (face); Denies: new lesions Neuro: Reports: headache(s); Denies: numbness in extremities or weakness in extremities PFS ED PFSH: Medical History Bipolar disorder, current episode depressed, severe, without psychotic features Borderline personality disorder Chronic migraine Chronic posttraumatic stress disorder Cigarette nicotine dependence Generalized anxiety disorder Long-term current use of opiate analgesic Lumbar back pain with radiculopathy affecting lower extremity Other obsessive-compulsive disorder Pain management contract signed Panic disorder without agoraphobia Spondylolisthesis of cervical region Spondylosis Spondylosis without myelopathy or radiculopathy, lumbar region Vitamin B12 deficiency anemia Surgical History History of partial hysterectomy History of removal of skin mole 11/19/19 [facility] Hx of cholecystectomy (~08/06/17) Hx of oophorectomy (~2010) LEFT Hx of tubal ligation Family History Mother Cancer UTERINE CANCER Lupus Family/Other Lupus AUNT Other Diabetes Hypertension Stroke Denies family history of Anesthesia complication Bleeding disorder Social History Smoking and tobacco status: current every day smoker cigarettes Packs smoked per day: 0.5 Lives independently: Yes History of recent travel: No Physical Exam Const: COMMON NORMALS: no acute distress, patient oriented x3, healthy appearing and alert GENERAL APPEARANCE: cooperative and comfortable HENMT: COMMON NORMALS: normocephalic HEAD & SCALP: normocephalic MOUTH: Normal oral and palatal mucosa present THROAT: posterior oropharynx normal and uvula midline Eye: COMMON NORMALS: Equal, round and reactive pupils present PUPIL: Yes Equal, round and reactive pupils present Neck/C-Spine: COMMON NORMALS: supple GENERAL: Yes normal visual inspection Resp: COMMON NORMALS: normal respiratory effort, No retractions, No use of accessory muscles and clear to auscultation bilaterally EFFORT & INSPECTION: Yes able to speak in complete sentences, No tachypneic, No respiratory distress and No labored AUSCULTATION: clear to auscultation bilaterally Cardio: COMMON NORMALS: regular rate, regular rhythm, S1 normal heart sound present, S2 normal heart sound present, No gallops present (Cardio), No clicks present (Cardio), No murmurs present (Cardio) and Peripheral pulses 2+ throughout RATE: regular rate RHYTHM: regular rhythm HEART SOUNDS: S1 normal heart sound present and S2 normal heart sound present PERIPHERAL PULSES: Peripheral pulses 2+ throughout GI: COMMON NORMALS: Normal to inspection, nondistended, normoactive bowel sounds present, Soft to palpation, non-tender and no masses PALPATION: Yes Soft to palpation : COMMON NORMALS: Yes no CVA tenderness BLADDER/KIDNEY EXAM: Yes no CVA tenderness Back/Pelvis: COMMON NORMALS: no CVA tenderness Extremity: COMMON NORMALS: normal to inspection and no pedal edema Neuro: COMMON NORMALS: patient oriented x3 and moves all extremities SENSORIUM/ORIENTATION: Yes alert Skin: NARRATIVE SKIN EXAM: Face does appear flushed and a little red. GENERAL SKIN EXAM: dry skin Course Reevaluation(s): Reevaluation #1: Patient said symptoms have improved after treatment here in the ED. Patient is ready for discharge. Vital Signs: Vital signs: Vital Signs Temperature 98.2 F 04/07/20 23:58 Pulse Rate 87 04/07/20 23:58 Respiratory Rate 16 04/07/20 23:58 Blood Pressure 153/91 04/07/20 23:58 Pulse Oximetry 100 04/07/20 23:58 MDM - Headache MDM Narrative: Medical decision making narrative: Patient is a 45-year-old female comes to the ED with possible allergic reaction to medication. Patient has MS and received Ocrevus infusion today. Preceding Kravis dose neurologist gave patient dose of Solu-Medrol and Benadryl. Around 3-4 after infusion patient started having red flush feeling face, nausea, headache and some fatigue. Patient's symptoms are listed as mild common allergic reaction to Ocrevus. While here in the ED patient was given IV fluids, Decadron, Toradol and Benadryl. Patient symptoms improved and she was discharged and told to follow-up with PCP in 7 to 10 days for reevaluation. I also called her to let neurologist know of symptoms after Ocrevus infusion. I told patient she can return to the ED if she has any worsening symptoms. Also told her she can take Benadryl tomorrow if needed. Patient understood and agreed with plan. Discharge Plan Discharge Patient Disposition: Home, Self-Care Clinical Impression: Allergic reaction caused by a drug Qualifiers: Encounter type: initial encounter Qualified Code(s): T78.40XA - Allergy, unspecified, initial encounter Condition: Stable Prescriptions: No Action ibuprofen 800 mg tablet 800 mg PO BID PRN (Reason: pain) 30 Days Qty: 60 RF: 1 aripiprazole [Abilify] 20 mg tablet 20 mg PO BEDTIME Qty: 30 RF: 4 duloxetine [Cymbalta] 60 mg capsule,delayed release(DR/EC) 60 mg PO .morning Qty: 30 RF: 4 hydroxyzine HCl 50 mg tablet 50 mg PO DAILY PRN (Reason: anxiety) Qty: 30 RF: 4 hydrochlorothiazide 25 mg tablet 37.5 mg PO DAILY RF: 0 potassium chloride [Klor-Con 10] 10 mEq tablet extended release 15 meq PO DAILY RF: 0 Myrbetriq 25 mg tablet extended release 24 hr 25 mg PO Q24H RF: 0 Dexilant 60 mg capsule,biphase delayed releas 60 mg PO DAILY RF: 0 cholecalciferol (vitamin D3) 25 mcg (1,000 unit) tablet 1,000 unit PO DAILY RF: 0 ulvkqflwhibm-Yw-ibye-minerals 18-0.4 mg tablet 1 tab PO DAILY RF: 0 methylprednisolone acetate [Depo-Medrol] 40 mg/mL suspension 40 mg Infiltration ONCE Qty: 1 RF: 0 melatonin 3 mg tablet extended release 3 mg PO DIRECTED Qty: 30 RF: 3 duloxetine [Cymbalta] 30 mg capsule,delayed release(DR/EC) 30 mg PO DAILY Qty: 30 RF: 3 baclofen 20 mg tablet 20 mg PO BID 30 Days Qty: 60 RF: 1 oxycodone 15 mg tablet 15 mg PO TID PRN (Reason: pain) 30 Days Qty: 90 RF: 0 oxycodone 15 mg tablet 15 mg PO TID PRN (Reason: pain) 30 Days Qty: 90 RF: 0 (DME) insulin syringe-needle U-100 [Advocate Syringes] 1 mL 29 gauge x 1/2 syringe See Rx Instructions .ROUTE .MEDSUPPLY Qty: 10 RF: 1 Linzess 290 mcg capsule 290 mcg PO QAM Qty: 30 RF: 2 levocetirizine [Xyzal] 5 mg tablet 5 mg PO BID Qty: 60 RF: 0 cyanocobalamin (vitamin B-12) 1,000 mcg/mL solution 1,000 mcg IM .weekly 28 Days Qty: 4 RF: 1 zonisamide 100 mg capsule 500 mg PO DAILY Qty: 450 RF: 0 diazepam [Valium] 10 mg tablet 10 mg PO .COMPLEX PRN (Reason: anxiety) Qty: 2 RF: 0 simvastatin 10 mg tablet 10 mg PO DAILY RF: 0 azelastine 137 mcg (0.1 %) Aerosol,[place] 1 spray INTRANASAL BID RF: 0 fluticasone propionate 50 mcg/actuation [place],Suspension 1 spray INTRANASAL BID RF: 0 magnesium oxide 400 mg magnesium Tablet 400 mg PO Q6H RF: 0 Tessalon Perles 100 mg capsule 100 mg PO Q6H PRN (Reason: cough) Qty: 30 RF: 0 Discharge Orders: Discharge Order (Routine); Ordered 04/08/20 Ordered By: Kyler Downey Referrals: JEREMIAH Mojica, VICTORINO [Primary Care Provider] - Discharge Diet: Regular Discharge Activity: Resume usual activity Patient Instructions: Allergic Reaction Activity Restrictions/Additional Instructions: Contact your PCP and set up an appointment for reevaluation in the next 7 to 10 days. Discussed with your neurologist about your reaction to the Ocrevus so they are aware. You can take another dose of Benadryl tomorrow if needed to help with symptoms. Return to ED if you are having any worsening symptoms. Stand Alone Forms: Work/School Release Coding Level of Care Code ED Microsoft Office Instructor for Robert Fwd Exam Comprehensive
[2020-04-08] MEDS: sodium chloride 0.9% 500 ML IV (01:44)
[2020-04-08] MEDS: dexamethasone 10 mg/mL INJ IVP (01:50)
[2020-04-08] MEDS: metoclopramide 5 mg/mL SDV 2 mL 10 MG IVP (01:54)
[2020-04-08] MEDS: ketorolac 30 mg/mL INJ IVP (01:59)
[2020-04-08] MEDS: diphenhydrAMINE 50 mg/mL SDV 1mL 25 MG IVP (02:04)
[2020-04-08 03:07] VITALS: BP 120/66; PULSE 73; RESP 12; TEMP 36.6; O2SAT 99
== END 2020-04-08 03:09 | disposition home or self-care (01) ==
PROVIDERS: Emergency Provider Physician Assistant; PCP Nurse Practitioner Family
DX: T78.40XA Allergy, unspecified, initial encounter (principal); F17.210 Nicotine dependence, cigarettes, uncomplicated
CPT/HCPCS: 12345; 96361; 96374; 96375; 99282; 99283; J1100; J1200; J1885; J2765; J7040

== ENCOUNTER → 2020-04-13 07:33 | Outpatient (BNVA) | payer MEDICARE, MEDICAID, SELFPAY ==
[2019-12-03 11:43] VITALS: BP 125/85; BMI 34.7
== END ==
PROVIDERS: PCP Nurse Practitioner Family; Visit Provider Nurse Practitioner Psychiatric/Mental Health
DX: F31.4 Bipolar disorder, current episode depressed, severe, without psychotic features (principal); F41.0 Panic disorder [episodic paroxysmal anxiety]; F42.8 Other obsessive-compulsive disorder; F41.1 Generalized anxiety disorder; F60.3 Borderline personality disorder; F17.210 Nicotine dependence, cigarettes, uncomplicated; F43.12 Post-traumatic stress disorder, chronic
CPT/HCPCS: 99213

== ENCOUNTER 2020-04-30 14:32 | Outpatient (CLI) | payer MEDICARE, MEDICAID, SELFPAY ==
[2019-12-03 11:43] VITALS: BP 125/85; BMI 34.7
--- NOTE | 2020-04-30 15:15 | MR_ITS ---
WS: [id number] MRI THORACIC SPINE without contrast. HISTORY: M47.24 Other spondylosis with radiculopathy, thoracic region COMPARISON: 11/28/2017 TECHNIQUE: Multiplanar sequences are performed in sagittal and axial planes. Normal thoracic alignment. Moderate disc space narrowing and desiccation at T8-9 and T7-8. Mild progr ession of degenerative changes since the prior exam. No marrow edema or fracture. There is a very sma ll amount of increased T2 signal in the thoracic cord the T8-9 level due to disc protrusion. This dis c protrusion was described on the prior study. There is mass effect upon the ventral thecal sac. Conu s tapers normally ends at the L1-2 level. T1-2: Normal. T2-3: Normal. T3-4: Normal. T4-5: Normal. T5-6: Normal. T6-7: Normal. T7-8: Small LEFT paracentral disc protrusion without stenosis. No progression. T8-9: Moderate-sized central disc protrusion with contact upon the ventral thecal sac. Concave defor mity of the ventral cord is similar to the prior study. T9-10: Normal. T10-11: Mild facet joint arthritis. Mild bilateral foraminal narrowing. T11-12: Normal. MR/MR thoracic spin wo con* [id number] IMPRESSION: 1. Moderate size central disc protrusion at T8-9 similar to the prior study. T here is cord contact and deformity. 2. New small amount of increased signal in the thoracic cord at T9 for myeloma lacia. 3. Small LEFT paracentral disc protrusion at T7-8 is unchanged.
== END 2020-04-30 14:33 | disposition home or self-care (01) ==
LOC: RADSHAW 14:37
PROVIDERS: PCP Nurse Practitioner Family; Visit Provider Nurse Practitioner
DX: M47.24 Other spondylosis with radiculopathy, thoracic region (principal); M51.24 Other intervertebral disc displacement, thoracic region; G95.89 Other specified diseases of spinal cord
CPT/HCPCS: 72146

== ENCOUNTER → 2020-05-18 07:37 | Outpatient (BNVA) | payer MEDICARE, SELFPAY ==
[2019-12-03 11:43] VITALS: BP 125/85; BMI 34.7
== END ==
PROVIDERS: PCP Nurse Practitioner Family; Visit Provider Nurse Practitioner Psychiatric/Mental Health
DX: F31.4 Bipolar disorder, current episode depressed, severe, without psychotic features (principal); F41.0 Panic disorder [episodic paroxysmal anxiety]; F42.8 Other obsessive-compulsive disorder; F41.1 Generalized anxiety disorder; F60.3 Borderline personality disorder; F17.210 Nicotine dependence, cigarettes, uncomplicated; F43.12 Post-traumatic stress disorder, chronic
CPT/HCPCS: 99213

== ENCOUNTER → 2020-05-27 10:24 | Outpatient (BNVA) | payer MEDICARE, MEDICAID, SELFPAY ==
[2019-12-03 11:43] VITALS: BP 125/85; BMI 34.7
== END ==
PROVIDERS: Family Provider Nurse Practitioner Family; PCP Nurse Practitioner Family; Visit Provider Nurse Practitioner
DX: M51.24 Other intervertebral disc displacement, thoracic region (principal); M47.24 Other spondylosis with radiculopathy, thoracic region; M47.816 Spondylosis without myelopathy or radiculopathy, lumbar region; F17.210 Nicotine dependence, cigarettes, uncomplicated; Z71.6 Tobacco abuse counseling; Z79.891 Long term (current) use of opiate analgesic
CPT/HCPCS: 99213; 99214

== ENCOUNTER 2020-06-01 06:00 | Outpatient (RCR) | payer MEDICARE, MEDICAID, SELFPAY ==
[2019-12-03 11:43] VITALS: BP 125/85; BMI 34.7
== END 2020-06-21 23:59 | disposition home or self-care (01) ==
LOC: SPT 06:00
PROVIDERS: PCP Nurse Practitioner Family; Referring Provider Licensed Practical Nurse; Visit Provider Licensed Practical Nurse
DX: M51.24 Other intervertebral disc displacement, thoracic region (principal)
CPT/HCPCS: 97110; 97161; G0283

== ENCOUNTER 2020-06-22 06:00 | Outpatient (RCR) | payer MEDICARE, MEDICAID, SELFPAY ==
[2019-12-03 11:43] VITALS: BP 125/85; BMI 34.7
== END 2020-07-21 23:59 | disposition home or self-care (01) ==
LOC: SPT 06:00
PROVIDERS: PCP Nurse Practitioner Family; Referring Provider Licensed Practical Nurse; Visit Provider Licensed Practical Nurse
DX: M51.24 Other intervertebral disc displacement, thoracic region (principal)
CPT/HCPCS: 97110; G0283

== ENCOUNTER → 2020-07-06 08:10 | Outpatient (BNVA) | payer MEDICARE, MEDICAID, SELFPAY ==
[2020-06-29 11:23] VITALS: BP 125/85; BMI 34.7
== END ==
PROVIDERS: PCP Nurse Practitioner Family; Visit Provider Nurse Practitioner Psychiatric/Mental Health
DX: F31.4 Bipolar disorder, current episode depressed, severe, without psychotic features (principal); F41.0 Panic disorder [episodic paroxysmal anxiety]; F42.8 Other obsessive-compulsive disorder; F17.210 Nicotine dependence, cigarettes, uncomplicated; F41.1 Generalized anxiety disorder; F60.3 Borderline personality disorder
CPT/HCPCS: 99214

== ENCOUNTER → 2020-07-22 13:34 | Outpatient (BNVA) | payer MEDICARE, MEDICAID, SELFPAY ==
[2020-06-29 11:23] VITALS: BP 125/85; BMI 34.7
== END ==
PROVIDERS: PCP Nurse Practitioner Family; Visit Provider Anesthesiology
DX: M47.816 Spondylosis without myelopathy or radiculopathy, lumbar region (principal); M54.16 Radiculopathy, lumbar region; M43.12 Spondylolisthesis, cervical region; M47.9 Spondylosis, unspecified; F17.210 Nicotine dependence, cigarettes, uncomplicated; Z79.891 Long term (current) use of opiate analgesic
CPT/HCPCS: 99213

== ENCOUNTER → 2020-08-10 07:42 | Outpatient (BNVA) | payer MEDICARE, MEDICAID, SELFPAY ==
[2020-06-29 11:23] VITALS: BP 125/85; BMI 34.7
== END ==
PROVIDERS: PCP Nurse Practitioner Family; Visit Provider Nurse Practitioner Psychiatric/Mental Health
DX: F31.4 Bipolar disorder, current episode depressed, severe, without psychotic features (principal); F41.0 Panic disorder [episodic paroxysmal anxiety]; F42.8 Other obsessive-compulsive disorder; F17.210 Nicotine dependence, cigarettes, uncomplicated; F41.1 Generalized anxiety disorder; F60.3 Borderline personality disorder; F43.12 Post-traumatic stress disorder, chronic
CPT/HCPCS: 99214

== ENCOUNTER → 2020-09-20 08:05 | Outpatient (BNVA) | payer MEDICARE, MEDICAID, SELFPAY ==
[2020-06-29 11:23] VITALS: BP 125/85; BMI 34.7
== END ==
PROVIDERS: PCP Nurse Practitioner Family; Visit Provider Nurse Practitioner Psychiatric/Mental Health
DX: F31.4 Bipolar disorder, current episode depressed, severe, without psychotic features (principal); F41.0 Panic disorder [episodic paroxysmal anxiety]; F42.8 Other obsessive-compulsive disorder; F41.1 Generalized anxiety disorder; F60.3 Borderline personality disorder; F17.210 Nicotine dependence, cigarettes, uncomplicated
CPT/HCPCS: 99214

== ENCOUNTER → 2020-09-28 08:42 | Outpatient (BNVA) | payer MEDICARE, MEDICAID, SELFPAY ==
[2020-06-29 11:23] VITALS: BP 125/85; BMI 34.7
== END ==
PROVIDERS: PCP Nurse Practitioner Family; Visit Provider Nurse Practitioner
DX: M47.816 Spondylosis without myelopathy or radiculopathy, lumbar region (principal); M47.24 Other spondylosis with radiculopathy, thoracic region; M43.12 Spondylolisthesis, cervical region; F17.210 Nicotine dependence, cigarettes, uncomplicated; Z79.891 Long term (current) use of opiate analgesic; Z71.6 Tobacco abuse counseling
CPT/HCPCS: 99213; 99214

== ENCOUNTER 2020-09-29 08:17 | Outpatient (CLI) | payer MEDICARE, MEDICAID, SELFPAY ==
[2019-12-03 11:43] VITALS: BP 125/85; BMI 34.7
[2020-06-29 11:23] VITALS: BP 125/85; BMI 34.7
[2020-09-29] MEDS: acetaminophen 500 mg Tablet 1000 MG PO (09:05)
[2020-09-29] MEDS: diphenhydrAMINE 50 mg/mL SDV 1mL 25 MG IVP (09:05)
== END 2020-09-29 08:18 | disposition home or self-care (01) ==
LOC: NSACUTE 08:21
PROVIDERS: PCP Nurse Practitioner Family; Visit Provider Specialist
DX: G35 Multiple sclerosis (principal); F17.210 Nicotine dependence, cigarettes, uncomplicated
CPT/HCPCS: 96365; 96366; 96375; 99214; J1200; J2350; J2930; J7040

== ENCOUNTER → 2020-10-06 12:07 | Outpatient (BNVA) | payer OTHER, MEDICARE, MEDICAID, SELFPAY ==
[2020-06-29 11:23] VITALS: BP 125/85; BMI 34.7
== END ==
PROVIDERS: PCP Nurse Practitioner Family; Visit Provider Nurse Practitioner Psychiatric/Mental Health
DX: F31.4 Bipolar disorder, current episode depressed, severe, without psychotic features (principal); Z79.899 Other long term (current) drug therapy
CPT/HCPCS: 80061; 83036

== ENCOUNTER → 2020-10-28 08:50 | Outpatient (BNVA) | payer MEDICARE, MEDICAID, SELFPAY ==
[2020-10-12 16:38] VITALS: BP 123/82; BMI 34.3
== END ==
PROVIDERS: PCP Nurse Practitioner Family; Visit Provider Nurse Practitioner
DX: M47.24 Other spondylosis with radiculopathy, thoracic region (principal); M51.24 Other intervertebral disc displacement, thoracic region; M47.9 Spondylosis, unspecified; M43.12 Spondylolisthesis, cervical region; F17.210 Nicotine dependence, cigarettes, uncomplicated; Z79.891 Long term (current) use of opiate analgesic; Z71.6 Tobacco abuse counseling
CPT/HCPCS: 99213

== ENCOUNTER → 2020-11-01 10:04 | Outpatient (BNVA) | payer MEDICARE, MEDICAID, SELFPAY ==
[2020-10-12 16:38] VITALS: BP 123/82; BMI 34.3
== END ==
PROVIDERS: PCP Nurse Practitioner Family; Visit Provider Nurse Practitioner Family
DX: I10 Essential (primary) hypertension (principal); D51.9 Vitamin B12 deficiency anemia, unspecified; R53.83 Other fatigue; D64.9 Anemia, unspecified; Z79.899 Other long term (current) drug therapy; E55.9 Vitamin D deficiency, unspecified; E78.2 Mixed hyperlipidemia; E66.09 Other obesity due to excess calories; Z68.34 Body mass index [BMI] 34.0-34.9, adult
CPT/HCPCS: 80053; 80061; 81003; 82306; 82607; 83036; 83550; 83921; 84439; 84443; 84481; 85025

== ENCOUNTER 2020-11-02 10:28 | Outpatient (CLI) | payer MEDICARE, MEDICAID, SELFPAY ==
[2020-06-29 11:23] VITALS: BP 125/85; BMI 34.7
[2020-10-12 16:38] VITALS: BP 123/82; BMI 34.3
--- NOTE | 2020-11-02 10:38 | MM_ITS ---
WS: [id number] SCREENING DIGITAL MAMMOGRAM WITH CAD HISTORY: SCREENING COMPARISON: 05/14/2019, 05/07/2018 Bilateral CC and MLO views submitted. Computer aided detection analyzed. Breast composition: There are scattered areas of fibroglandular density. 6.5 mm nodule in the anterio r LEFT breast central to the nipple. May be at 6:00 on the lateral projection. MM/[place] [id number] IMPRESSION: BI-RADS: 0-Incomplete: Need additional imaging evaluation FOLLOW UP: Need Additional Imaging LEFT breast: Spot compression views (CC and MLO). True ML. Ultrasound to follow if abnormality persists.
== END 2020-11-02 10:29 | disposition home or self-care (01) ==
PROVIDERS: PCP Nurse Practitioner Family; Visit Provider Nurse Practitioner Family
DX: Z12.31 Encounter for screening mammogram for malignant neoplasm of breast (principal); N63.20 Unspecified lump in the left breast, unspecified quadrant
CPT/HCPCS: 77067

== ENCOUNTER → 2020-11-17 07:49 | Outpatient (BNVA) | payer MEDICARE, MEDICAID, SELFPAY ==
[2020-10-12 16:38] VITALS: BP 123/82; BMI 34.3
== END ==
PROVIDERS: PCP Nurse Practitioner Family; Visit Provider Nurse Practitioner Psychiatric/Mental Health
DX: F31.63 Bipolar disorder, current episode mixed, severe, without psychotic features (principal); F41.0 Panic disorder [episodic paroxysmal anxiety]; F42.8 Other obsessive-compulsive disorder; F41.1 Generalized anxiety disorder; F60.3 Borderline personality disorder; F43.12 Post-traumatic stress disorder, chronic; F17.211 Nicotine dependence, cigarettes, in remission; F33.42 Major depressive disorder, recurrent, in full remission
CPT/HCPCS: 99214

== ENCOUNTER 2020-11-19 13:58 | Outpatient (CLI) | payer MEDICARE, MEDICAID, SELFPAY ==
[2020-10-12 16:38] VITALS: BP 123/82; BMI 34.3
--- NOTE | 2020-11-19 14:46 | ECG_ITS ---
[facility] Test Date: 2020-11-19 Pat Name: Odalys Casiano Department: Room: Gender: Female Real Time Analyst: : 1975 Requested By: JEREMIAH Mojica Order Number: [id number] Jessica MD: Olimpia Arevalo M.D. 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 [email or web address]
== END 2020-11-19 13:59 | disposition home or self-care (01) ==
PROVIDERS: PCP Nurse Practitioner Family; Visit Provider Nurse Practitioner Family
DX: R00.0 Tachycardia, unspecified (principal)
CPT/HCPCS: 93005

== ENCOUNTER 2020-11-23 08:41 | Outpatient (CLI) | payer MEDICARE, MEDICAID, SELFPAY ==
[2020-10-12 16:38] VITALS: BP 123/82; BMI 34.3
--- NOTE | 2020-11-23 08:48 | US_ITS ---
WS: [id number] ADDITIONAL VIEWS LEFT MAMMOGRAM LEFT BREAST ULTRASOUND HISTORY: R92.8 - Other abnormal and inconclusive findings on diagnostic imaging of breast COMPARISON: 11/02/2020, 05/14/2019 and 05/07/2018 LEFT MAMMOGRAM: Spot compression views and true ML. Ovoid slightly lobulated mass at 6:00 persists in the anterior breast with spot compression views. No dule measures 6 x 4 mm. Ultrasound to follow. LEFT BREAST ULTRASOUND 2-D and color Doppler imaging submitted. At 6:00, 1 cm from the nipple is a cluster of small cysts measuring 9 x 7 x 4 mm. This corresponds to the mammographic abnormality. No increased vascularity. May be small cluster ducts, fibroglandular t issue or cyst. US/US breast LT limited* [id number] IMPRESSION: BI-RADS: 3-Probably Benign FOLLOW UP: 6 Month Follow-up Recommend ultrasound follow-up of the small cluster of cysts or fibrocystic nod ule at 6:00, 1 cm from the nipple. This is not a simple cyst therefore 6 month follow-up is recommended.
--- NOTE | 2020-11-23 09:00 | MM_ITS ---
WS: [id number] ADDITIONAL VIEWS LEFT MAMMOGRAM LEFT BREAST ULTRASOUND HISTORY: R92.8 - Other abnormal and inconclusive findings on diagnostic imaging of breast COMPARISON: 11/02/2020, 05/14/2019 and 05/07/2018 LEFT MAMMOGRAM: Spot compression views and true ML. Ovoid slightly lobulated mass at 6:00 persists in the anterior breast with spot compression views. No dule measures 6 x 4 mm. Ultrasound to follow. LEFT BREAST ULTRASOUND 2-D and color Doppler imaging submitted. At 6:00, 1 cm from the nipple is a cluster of small cysts measuring 9 x 7 x 4 mm. This corresponds to the mammographic abnormality. No increased vascularity. May be small cluster ducts, fibroglandular t issue or cyst. MM/[place] [id number] IMPRESSION: BI-RADS: 3-Probably Benign FOLLOW UP: 6 Month Follow-up Recommend ultrasound follow-up of the small cluster of cysts or fibrocystic nod ule at 6:00, 1 cm from the nipple. This is not a simple cyst therefore 6 month follow-up is recommended.
== END 2020-11-23 08:42 | disposition home or self-care (01) ==
LOC: RADSHAW 08:45
PROVIDERS: PCP Nurse Practitioner Family; Visit Provider Nurse Practitioner Family
DX: R92.8 Other abnormal and inconclusive findings on diagnostic imaging of breast (principal); N63.25 Unspecified lump in the left breast, overlapping quadrants
CPT/HCPCS: 76642; 77065

== ENCOUNTER → 2020-11-26 07:48 | Outpatient (BNVA) | payer MEDICARE, MEDICAID, SELFPAY ==
[2020-10-12 16:38] VITALS: BP 123/82; BMI 34.3
== END ==
PROVIDERS: PCP Nurse Practitioner Family; Visit Provider Counselor Professional
DX: F31.63 Bipolar disorder, current episode mixed, severe, without psychotic features (principal); F43.12 Post-traumatic stress disorder, chronic
CPT/HCPCS: 90834

== ENCOUNTER → 2020-12-10 09:14 | Outpatient (BNVA) | payer MEDICARE, MEDICAID, SELFPAY ==
[2020-10-12 16:38] VITALS: BP 123/82; BMI 34.3
== END ==
PROVIDERS: PCP Nurse Practitioner Family; Visit Provider Counselor Professional
DX: F43.12 Post-traumatic stress disorder, chronic (principal)
CPT/HCPCS: 90834

== ENCOUNTER → 2020-12-23 08:00 | Outpatient (BNVA) | payer MEDICARE, MEDICAID, SELFPAY ==
[2020-10-12 16:38] VITALS: BP 123/82; BMI 34.3
== END ==
PROVIDERS: PCP Nurse Practitioner Family; Visit Provider Anesthesiology
DX: M47.24 Other spondylosis with radiculopathy, thoracic region (principal); M47.816 Spondylosis without myelopathy or radiculopathy, lumbar region; M43.12 Spondylolisthesis, cervical region; M47.9 Spondylosis, unspecified; Z79.891 Long term (current) use of opiate analgesic
CPT/HCPCS: 99213

== ENCOUNTER → 2021-02-23 09:42 | Outpatient (BNVA) | payer MEDICARE, MEDICAID, SELFPAY ==
[2020-10-12 16:38] VITALS: BP 123/82; BMI 34.3
== END ==
PROVIDERS: PCP Nurse Practitioner Family; Visit Provider Nurse Practitioner
DX: G89.29 Other chronic pain (principal); M47.24 Other spondylosis with radiculopathy, thoracic region; M51.24 Other intervertebral disc displacement, thoracic region; M43.12 Spondylolisthesis, cervical region; G35 Multiple sclerosis; F17.211 Nicotine dependence, cigarettes, in remission; Z79.899 Other long term (current) drug therapy; Z79.891 Long term (current) use of opiate analgesic
CPT/HCPCS: 99214

== ENCOUNTER 2021-03-09 14:27 | Outpatient (CLI) | payer MEDICARE, MEDICAID, SELFPAY ==
[2020-10-12 16:38] VITALS: BP 123/82; BMI 34.3
[2021-03-09 15:17] LABS: Bilirubin Urine Neg (Negative); Blood Urine Neg (Negative); Glucose Urine UA Norm (Normal); Ketones Urine Negative (Negative); Nitrate Urine Negative (Negative); Protein Urine Neg (Negative); Urine Appearance Cloudy (CLEAR); Urine Color Yellow (Yellow); Urobilinogen Urine Norm (Negative); pH Urine 7 (5-7)
[2021-03-09 15:18] LABS: Add Urine Microscopic? YES; Leukocyte Esterase Urine Negative (Negative)
[2021-03-09 15:22] LABS: Bacteria Urine 1+ /hpf; RBC Urine 0-4 /hpf (0-2); WBC Urine 0-4 /hpf (0-5)
[2021-03-09 15:25] LABS: Blood Urea Nitrogen 8 mg/dL (6-20); Calcium 9.5 mg/dL (8.5-10.5); Carbon Dioxide 31 mmol/L (22-29); Chloride 96 mmol/L (98-107); Glomerular Filtration Rate 76.6 mL/min (90-130); Glucose 88 mg/dL (65-115); Osmolality Calculated 282 mOsm/kg (285-295); Sodium 137 mmol/L (136-145)
[2021-03-09 16:25] LABS: Creatinine Urine, Random 17 mg/dL (28-217)
[2021-03-09 16:45] LABS: Microalbum Creatinine Ratio Ur 59 mg/dL (0-20); Microalbumin Random Urine 1 ug/dL (0-20)
== END 2021-03-09 14:28 | disposition home or self-care (01) ==
PROVIDERS: PCP Nurse Practitioner Family; Visit Provider Registered Nurse
DX: N18.31 Chronic kidney disease, stage 3a (principal)
CPT/HCPCS: 36415; 80048; 81001; 82044

== ENCOUNTER 2021-03-11 14:23 | Emergency (ER) | payer MEDICARE, MEDICAID, SELFPAY ==
[2020-10-12 16:38] VITALS: BP 123/82; BMI 34.3
[2021-03-11 14:33] VITALS: BP 130/90; PULSE 110; RESP 18; TEMP 36.8; O2SAT 97; BMI 37.1
--- NOTE | 2021-03-11 16:21 | XRR_ITS ---
PROCEDURE INFORMATION: Exam: XR Abdomen Exam date and time: 03/11/2021 4:31 PM Age: 46 years old Clinical indication: Other: Discomfort; Additional info: Abd discomfort TECHNIQUE: Imaging protocol: XR of the abdomen. Views: Frontal supine view of the abdomen. 1 View. COMPARISON: CT abdomen pelvis w con* [id number] 11/07/2019 9:59 PM FINDINGS: Gastrointestinal tract: Nonobstructive bowel gas pattern. Large amount of formed stool throughout the colon. Bones/joints: Unremarkable. XR/XR KUB portable [id number] IMPRESSION: Nonobstructive bowel gas pattern with a large amount of formed stool throughout the colon.
[2021-03-11 16:36] LABS: Add Urine Microscopic? NO; Charge for UA Resulting for Rev
--- NOTE | 2021-03-11 16:36 | ED_ITS ---
HPI - General Adult General: Chief complaint: Abdominal Pain Stated complaint: R SIDE ABD PAIN Time Seen by Provider: 03/11/21 16:10 History of Present Illness: HPI narrative: Patient states she has some right- sided abdominal pain. And says her urine is cloudy has had increased urination. Denies frequency. Denies fever chill has felt some nauseous no vomiting. This has been present last couple days Onset (ago): day(s) Location: abdomen Radiation: non-radiation Severity: mild Severity scale (1-10): 1 Quality: aching Pain Consistency: intermittent Associated symptoms: Reports nausea and other (Polyuria, patient currently on phentermine); Deny chest pain, dyspnea, headache(s) or rash Review of Systems Const: Denies: fever(s), chills or body aches Eyes: Denies: change in vision or blurry vision ENMT: Denies: throat pain or nasal congestion Card: Denies: chest pain or dyspnea on exertion Resp: Denies: dyspnea, productive cough or non-productive cough GI: Reports: abdominal pain (Abdominal discomfort generalized) and nausea : Reports: urinary frequency Musc: Denies: extremity pain Skin/Breast: Denies: rash Neuro: Denies: headache(s) Psych: Denies: anxiety or depression Floyd/Lymph: Denies: easy bruising PFSH ED PFSH: Medical History (Updated 03/11/21 @ 16:58 by VICTORINO Evans) Abnormal mammogram Anemia Bipolar I disorder, most recent episode mixed, severe without psychotic features Borderline personality disorder Chronic idiopathic constipation Chronic migraine Chronic posttraumatic stress disorder Decreased glomerular filtration rate (GFR) Disc displacement, thoracic Fatigue Generalized anxiety disorder Long-term current use of opiate analgesic Lumbar back pain with radiculopathy affecting lower extremity Medication management Mixed hyperlipidemia Multiple sclerosis Nicotine dependence, cigarettes, in remission in early remission, quit smoking on 10/22/20. Obesity FLORY treated with BiPAP Other obsessive-compulsive disorder Pain management contract signed Panic disorder without agoraphobia Spondylolisthesis of cervical region Spondylosis without myelopathy or radiculopathy, lumbar region Vitamin B12 deficiency anemia Vitamin D deficiency Surgical History History of partial hysterectomy History of removal of skin mole 11/19/19 [facility] Hx of cholecystectomy (~08/06/17) Hx of oophorectomy (~2010) LEFT Hx of tubal ligation Family History Mother Cancer UTERINE CANCER Lupus Family/Other Lupus AUNT Other Diabetes Hypertension Stroke Social History Smoking and tobacco status: former smoker Second hand smoke exposure: Yes Alcohol intake: former Adopted: No Caregiver/support person: No Lives independently: No Household members: none Housing: Apartment Marital status: Single Number of children: 3 Number of grandchildren: 1 Highest education level completed: Some College, No Degree service: No Current occupational status: disabled Pets and animals: Yes Pets & animals: dog(s) History of recent travel: Yes Details: went to [place] in July Out of state: Yes Leisure activites: other Leisure activities details: watch tv Sexually active: No Current gender identity: Female Elisabeth/Latter-Day: None Financial difficulty paying for basics: Not Very Hard Female Reproductive History: Para: 3 Spontaneous abortions: No Physical Exam Const: COMMON NORMALS: no acute distress, average body habitus and patient oriented x3 HENMT: COMMON NORMALS: normocephalic HEAD & SCALP: normal to inspection and normocephalic FACE & SINUS: normal facial exam Eye: COMMON NORMALS: conjunctivae normal GENERAL EYE: appearance normal, both eyes and all related structures CONJUNCTIVA: Yes conjunctivae normal Neck/C-Spine: COMMON NORMALS: no JVD Chest: COMMONS NORMALS: normal inspection of the chest Resp: COMMON NORMALS: normal respiratory effort and clear to auscultation bilaterally AUSCULTATION: clear to auscultation bilaterally Cardio: COMMON NORMALS: no JVD, regular rate and regular rhythm RATE: regular rate RHYTHM: regular rhythm GI: COMMON NORMALS: Normal to inspection, nondistended, normoactive bowel sounds present and Soft to palpation AUSCULTATION: Yes normoactive bowel amada nds PALPATION: Yes Soft to palpation and Yes Tenderness to palpation present (GI) Details: RLQ (Very mild) and RUQ (Very mild) Extremity: COMMON NORMALS: normal to inspection and full ROM Neuro: COMMON NORMALS: patient oriented x3 Course Vital Signs: Vital signs: Vital Signs Temperature 98.2 F 03/11/21 14:33 Pulse Rate 86 05/21/21 17:18 Respiratory Rate 16 03/11/21 17:18 Blood Pressure 127/83 03/11/21 17:18 Pulse Oximetry 97 03/11/21 17:18 MDM - General Adult MDM Narrative: Medical decision making narrative: Labs radiology reviewed negative patient follow-up primary care provider. Discussed gallbladder disease discussed other problems patient did have a large amount of stool noted. Advised to take laxative increase fiber in diet discussed pain medication and other medications how that affect the colon. Patient follow-up primary care provider. Lab Data: Labs: Lab Results 03/11/21 Range/Units 16:30 Urine Color Straw (Yellow) Urine Appearance Clear (CLEAR) Urine pH 7 (5-7) Ur Specific Gravit y 1.005 (1.005-1.030) Urine Protein Neg (Negative) Urine Glucose (UA) Norm (Normal) Urine Ketones Negative (Negative) Urine Blood Neg (Negative) Urine Nitrate Negative (Negative) Urine Bilirubin Neg (Negative) Urine Urobilinogen Norm (Negative) mg/dL Ur Leukocyte Yuliet ase Negative (Negative) Discharge Plan Discharge Patient Disposition: Home Clinical Impression: Constipation Qualifiers: Constipation type: drug induced constipation Qualified Code(s): K59.03 - Drug induced constipation Condition: Stable Prescriptions: New lactulose 10 gram/15 mL solution 10 g PO DAILY PRN (Reason: constipation) Qty: 237 RF: 0 No Action clonidine HCl 0.1 mg tablet 0.1 mg PO DAILY RF: 0 fluticasone propionate [Flonase Allergy Relief] 50 mcg/actuation spray,suspension 1 spray intranasal BID RF: 0 [id number]-[id number] 137 mcg-50 mcg- 0.9 % kit,spray suspension and spray 1 spray intranasal BID RF: 0 methylprednisolone acetate [Depo-Medrol] 40 mg/mL suspension 40 mg Infiltration ONCE Qty: 1 RF: 0 aripiprazole [Abilify] 30 mg tablet 30 mg PO .bedtime Qty: 30 RF: 3 duloxetine [Cymbalta] 30 mg capsule,delayed release(DR/EC) 30 mg PO .morning Qty: 30 RF: 4 duloxetine [Cymbalta] 60 mg capsule,delayed release(DR/EC) 60 mg PO .morning Qty: 30 RF: 4 hydroxyzine HCl 50 mg tablet 50 mg PO BID PRN (Reason: anxiety) Qty: 60 RF: 4 cyclobenzaprine 10 mg tablet 10 mg PO TID 90 Days Qty: 270 RF: 1 oxycodone 15 mg tablet 15 mg PO TID PRN (Reason: pain) 30 Days Qty: 90 RF: 0 oxycodone 15 mg tablet 15 mg PO TID PRN (Reason: pain) 30 Days Qty: 90 RF: 0 Linzess 290 mcg capsule See Rx Instructions .ROUTE .COMPLEX Qty: 30 RF: 2 phentermine 37.5 mg capsule 37.5 mg PO DAILY 30 Days Qty: 30 RF: 0 zonisamide 100 mg capsule 500 mg PO DAILY Qty: 450 RF: 1 magnesium oxide 400 mg magnesium tablet 400 mg PO Q6H Qty: 360 RF: 1 Dexilant 60 mg capsule,biphase delayed releas 60 mg PO DAILY Qty: 90 RF: 2 levocetirizine [Xyzal] 5 mg tablet 5 mg PO BID Qty: 240 RF: 1 Myrbetriq 25 mg tablet extended release 24 hr 25 mg PO Q24H Qty: 90 RF: 1 potassium chloride [Klor-Con 10] 10 mEq tablet extended release 15 meq PO DAILY Qty: 135 RF: 3 hydrochlorothiazide 25 mg tablet 37.5 mg PO DAILY Qty: 135 RF: 3 ferrous gluconate 324 mg (38 mg iron) tablet 324 mg PO DAILY 90 Days Qty: 90 RF: 0 cholecalciferol (vitamin D3) 1,250 mcg (50,000 unit) capsule 50,000 unit PO .weekly 90 Days Qty: 12 RF: 0 rosuvastatin [Crestor] 5 mg tablet 5 mg PO DAILY 30 Days Qty: 90 RF: 2 Discharge Orders: Discharge ED (Routine); Ordered 03/11/21 Ordered By: Ghassan Hernandez Referrals: JEREMIAH Mojica, HOUSEKEEPING DIRECTOR [Primary Care Provider] - Discharge Diet: As Directed Discharge Activity: Resume usual activity Patient Instructions: Constipation (ED), High Fiber Diet (ED), Opioid Safety Activity Restrictions/Additional Instructions: Follow-up with medical provider as directed. Take medications as prescribed. Return to the ER or your medical provider if condition worsens. Please read and understand discharge instructions. If any questions ask please. Coding Level of Care Code ED Tank Truck Driver for Chg Fwd Exam Comprehensive
[2021-03-11 16:45] LABS: Bilirubin Urine Neg (Negative); Blood Urine Neg (Negative); Glucose Urine UA Norm (Normal); Ketones Urine Negative (Negative); Leukocyte Esterase Urine Negative (Negative); Nitrate Urine Negative (Negative); Protein Urine Neg (Negative); Specific Gravity, Urine 1.005 (1.005-1.030); Urine Appearance Clear (CLEAR); Urine Color Straw (Yellow); Urobilinogen Urine Norm (Negative); pH Urine 7 (5-7)
[2021-03-11 17:18] VITALS: BP 127/83; PULSE 86; RESP 16; O2SAT 97
== END 2021-03-11 17:19 | disposition home or self-care (01) ==
PROVIDERS: Emergency Provider Nurse Practitioner Family; PCP Nurse Practitioner Family
DX: K59.03 Drug induced constipation (principal); E78.2 Mixed hyperlipidemia; G35 Multiple sclerosis; Z87.891 Personal history of nicotine dependence
CPT/HCPCS: 74018; 81003; 99282

== ENCOUNTER 2021-03-25 22:45 | Emergency (ER) | payer MEDICARE, MEDICAID, SELFPAY ==
[2021-03-14 10:34] VITALS: BP 123/82; BMI 34.3
[2021-03-25 22:52] VITALS: BP 148/103; PULSE 121; RESP 16; TEMP 36.6; O2SAT 98; BMI 38.2
[2021-03-25 22:58] VITALS: BP 124/77; PULSE 90; RESP 16; TEMP 36.6; O2SAT 98
[2021-03-25 23:28] VITALS: BP 122/70; PULSE 90; RESP 18; TEMP 36.6; O2SAT 98
[2021-03-25 23:58] VITALS: PULSE 90; RESP 18; O2SAT 98
[2021-03-26] VITALS: RESP 18
--- NOTE | 2021-03-26 00:02 | CTR_ITS ---
PROCEDURE INFORMATION: Exam: CT Abdomen And Pelvis Without Contrast Exam date and time: 03/26/2021 12:21 AM Age: 46 years old Clinical indication: Abdominal pain; Right; Prior surgery; Surgery type: Gb. Appy. Hysterctomy. ; Patient HX: RT flank pain. ; Additional info: R flank pain, back pain TECHNIQUE: Imaging protocol: Computed tomography of the abdomen and pelvis without contrast. Radiation optimization: All CT scans at this facility use at least one of these dose optimization techniques: automated exposure control; mA and/or kV adjustment per patient size (includes targeted exams where dose is matched to clinical indication); or iterative reconstruction. COMPARISON: CT abdomen pelvis w con* [id number] 11/07/2019 9:59 PM RADIATION DOSE METRICS: Total DLP (mGy-cm): 1816.99 FINDINGS: Lungs: Lung bases are clear. Liver: There is no focal liver abnormality. There is diffuse low-attenuation of the liver relative to the spleen consistent with fatty infiltration. Gallbladder and bile ducts: The gallbladder is absent. There is no intrahepatic or extrahepatic bile duct dilation. Pancreas: The pancreas is unremarkable. Spleen: The spleen is unremarkable. Adrenal glands: The adrenal glands are unremarkable. Kidneys and ureters: The kidneys are unremarkable. No hydronephrosis or stones. No ureteral dilation. Stomach and bowel: The stomach is decompressed, preventing meaningful evaluation of wall thickness. The small bowel is nondilated. There is mild descending and sigmoid colonic diverticulosis without evidence of diverticulitis. Appendix: The appendix is absent. Intraperitoneal space: There is no free air or significant intraperitoneal free fluid. Vasculature: The aorta is unremarkable. There is no aneurysm. Lymph nodes: There is no lymphadenopathy in the retroperitoneum, mesentery, pelvis or inguinal regions. Urinary bladder: The urinary bladder is unremarkable. Reproductive: The uterus is absent. There is no adnexal mass or large cyst. Bones/joints: Bones are unremarkable. Soft tissues: The abdominal wall is intact. CT/CT kidney stone [id number] IMPRESSION: 1. No obstructive uropathy. No stones. 2. Incidental findings above. Radiation Dose CTDIVOL = (mGy): DLP = 1816.99 (mGy-cm)
[2021-03-26 00:12] VITALS: RESP 18
[2021-03-26] MEDS: HYDROmorphone 1 mg/mL INJ 1 mL IVP (00:12)
[2021-03-26] MEDS: ondansetron 2 mg/ML SDV 2 mL 4 MG IVP (00:13)
[2021-03-26 00:21] LABS: Basophils # 0.1 10^3/uL (0.0-0.1); Basophils % 0.7 %; Eosinophils # 0.1 10^3/uL (0.0-0.8); Eosinophils % 0.8 %; Hematocrit 41.8 % (37.0-47.0); Lymphocytes % 24.6 %; Mean Corpuscular HGB Conc 33.5 g/dL (30.0-36.0); Mean Corpuscular Volume 92.5 fL (81-99); Mean Platelet Volume 9.4 fL (7.4-10.4); Monocytes # 0.8 10^3/uL (0.2-0.9); Monocytes % 6.7 %; Neutrophils % 66.9 %; Nucleated Red Blood Cells % 0 %; Platelet Count 327 10^3/cmm (130-400); Red Blood Count 4.52 10^6/uL (4.1-5.3); Red Cell Distribution Width 12.3 % (12.1-15.1)
[2021-03-26 00:30] VITALS: PULSE 90; RESP 18; TEMP 36.6; O2SAT 98
[2021-03-26 00:41] LABS: Alanine Aminotransferase 25 U/L (0-33); Albumin Level 4.4 g/dL (3.5-5.2); Alkaline Phosphatase 110 IU/L (35-105); Anion Gap 16.9 (5-19); Aspartate Amino Transferase 16 U/L (0-32); Blood Urea Nitrogen 10 mg/dL (6-20); Calcium 9.3 mg/dL (8.5-10.5); Carbon Dioxide 24 mmol/L (22-29); Chloride 100 mmol/L (98-107); Globulin 3.3 g/dL (1.3-4.6); Glomerular Filtration Rate 76.6 mL/min (90-130); Glucose 120 mg/dL (65-115); Lipase 18 U/L (13-60); Osmolality Calculated 284 mOsm/kg (285-295); Potassium 3.9 mmol/L (3.5-5.1); Sodium 137 mmol/L (136-145); Total Bilirubin 0.2 mg/dL (0.15-1.2); Total Protein 7.7 g/dL (6.6-8.7)
[2021-03-26 00:59] VITALS: PULSE 90; RESP 18; TEMP 36.6; O2SAT 98
[2021-03-26 01:06] LABS: Add Urine Microscopic? NO; Charge for UA Resulting for Rev
[2021-03-26 01:18] LABS: Bilirubin Urine Neg (Negative); Blood Urine Neg (Negative); Glucose Urine UA Norm (Normal); Ketones Urine Negative (Negative); Leukocyte Esterase Urine Negative (Negative); Nitrate Urine Negative (Negative); Protein Urine Neg (Negative); Specific Gravity, Urine 1.005 (1.005-1.030); Urine Appearance Clear (CLEAR); Urine Color Yellow (Yellow); Urobilinogen Urine Norm (Negative); pH Urine 6.5 (5-7)
[2021-03-26] MEDS: ketorolac 30 mg/mL INJ IVP (02:04)
[2021-03-26 02:11] VITALS: BP 97/62; PULSE 90; RESP 18; TEMP 36.6; O2SAT 98
[2021-03-26 02:23] VITALS: BP 97/62; PULSE 90; RESP 18; TEMP 36.6; O2SAT 98
--- NOTE | 2021-03-26 06:29 | W.ED.BACK ---
HPI - Back Pain/Injury General: Chief Complaint: Back Pain/Injury Stated Complaint: R SIDE PAIN Time Seen by Provider: 03/25/21 23:05 History of Present Illness: HPI Narrative: 46-year-old female with a history of back pain. She presents with right-sided back pain radiating down her left posterior thigh. It does not go past her knee. She does have a numb feeling to her anterior leg. This happened today with no definite injury. She says that she is not had radicular pain like this before. However, she is on oxycodone for chronic back pain no loss of bowel or bladder function, and no saddle anesthesia symptoms. MD elicited complaint: back pain Pertinent past history: prior back pain Onset (ago): hour(s) Timing: constant Severity: moderate Similar Symptoms Previously: No Quality: stabbing Location: lumbar spine Radiation: right upper leg Exacerbating factors: movement Relieving factors: sitting upright Context: unknown Associated symptoms: Reports difficulty walking, nausea and tingling/numbness/burning; Deny abdominal pain, chills, change in bowel habits or dysuria Treatments prior to arrival: other medications Review of Systems Const: Denies: chills Card: Denies: chest pain Resp: Denies: dyspnea or non-productive cough GI: Reports: nausea; Denies: abdominal pain or change in bowel habits : Denies: dysuria Skin/Breast: Denies: rash Neuro: Reports: difficulty walking PFSH ED PFSH: Medical History Abnormal mammogram Anemia Bipolar I disorder, most recent episode mixed, severe without psychotic features Borderline personality disorder Chronic idiopathic constipation Chronic migraine Chronic posttraumatic stress disorder Decreased glomerular filtration rate (GFR) Disc displacement, thoracic Fatigue Generalized anxiety disorder Long-term current use of opiate analgesic Lumbar back pain with radiculopathy affecting lower extremity Medication management Mixed hyperlipidemia Multiple sclerosis Nicotine dependence, cigarettes, in remission in early remission, quit smoking on 10/22/20. Obesity FLORY treated with BiPAP Other obsessive-compulsive disorder Pain management contract signed Panic disorder without agoraphobia Spondylolisthesis of cervical region Spondylosis without myelopathy or radiculopathy, lumbar region Vitamin B12 deficiency anemia Vitamin D deficiency Surgical History History of partial hysterectomy History of removal of skin mole 11/19/19 [facility] Hx of cholecystectomy (~08/06/17) Hx of oophorectomy (~2010) LEFT Hx of tubal ligation Family History Mother Cancer UTERINE CANCER Lupus Family/Other Lupus AUNT Other Diabetes Hypertension Stroke Social History Smoking and tobacco status: former smoker Second hand smoke exposure: Yes Alcohol intake: former Adopted: No Caregiver/support person: No Lives independently: No Household members: none Housing: Apartment Marital status: Single Number of children: 3 Number of grandchildren: 1 Highest education level completed: Some College, No Degree service: No Current occupational status: disabled Pets and animals: Yes Pets & animals: dog(s) History of recent travel: Yes Details: went to [place] in July Out of state: Yes Leisure activites: other Leisure activities details: watch tv Sexually active: No Current gender identity: Female Elisabeth/Alevism: None Financial difficulty paying for basics: Not Very Hard Female Reproductive History: Para: 3 Spontaneous abortions: No Physical Exam Const: GENERAL APPEARANCE: well developed ORIENTATION/CONSCIOUSNESS: Yes oriented to person, Yes oriented to place and Yes oriented to time HENMT: COMMON NORMALS: normocephalic, external ears normal and Normal external nose present HEAD & SCALP: normocephalic NOSE: Normal external nose present and No nasal discharge present EXTERNAL EAR: Yes external ears normal Eye: COMMON NORMALS: Equal, round and reactive pupils present, EOMs intact bilaterally and conjunctivae normal EYELID: eyelids normal CONJUNCTIVA: Yes conjunctivae normal PUPIL: Yes Equal, round and reactive pupils present Neck/C-Spine: COMMON NORMALS: full ROM GENERAL: No tracheal deviation Chest: COMMONS NORMALS: normal inspection of the chest CHEST: No tenderness Resp: COMMON NORMALS: clear to auscultation bilaterally EFFORT & INSPECTION: No tachypneic, No respiratory distress, No retractions, No uses accessory muscles and No tracheal deviation AUSCULTATION: clear to auscultation bilaterally, no rhonchi, no wheezes and lung sounds not diminished Cardio: COMMON NORMALS: regular rate and regular rhythm RATE: regular rate RHYTHM: regular rhythm HEART SOUNDS: no murmurs PERIPHERAL PULSES: radial pulses present GI: INSPECTION: No abdominal distension AUSCULTATION: No Hyperactive bowel sounds present and No Hypoactive bowel sounds present PALPATION: No Guarding due to palpation present (GI) and No Rigid due to palpation PERCUSSION: no dullness to percussion and no tympanic to percussion : BLADDER/KIDNEY EXAM: Yes CVA tenderness on the right Back/Pelvis: GENERAL BACK: Yes CVA tenderness Neuro: SENSORIUM/ORIENTATION: Yes oriented to person, Yes oriented to place and Yes oriented to time Psych: COMMON NORMALS: mental status grossly normal Skin: COMMON NORMALS: no rashes or lesions noted GENERAL SKIN EXAM: no rashes or lesions noted Course Vital Signs: Vital signs: Vital Signs Temperature 97.9 F 03/26/21 02:23 Pulse Rate 90 03/26/21 02:23 Respiratory Rate 18 03/26/21 02:23 Blood Pressure 97/62 03/26/21 02:23 Pulse Oximetry 98 03/26/21 02:23 MDM - Back Pain/Injury MDM Narrative: Medical decision making narrative: CT negative for stone. She did have L4-5 disc disease on her prior MRI. Labs are benign. We will treat her for lumbar radiculopathy Lab Data: Labs: Lab Results 03/26/21 03/26/21 03/26/21 Range/Units 00:15 00:15 00:45 WBC 12.0 H (4.0-10.0) 10^3/ uL RBC 4.52 (4.1-5.3) 10^6/u L Hgb 14.0 (11.5-15.3) g/dL Hct 41.8 (37.0-47.0) % MCV 92.5 (81-99) fL MCH 31.0 (28.0-34.0) pg MCHC 33.5 (30.0-36.0) g/dL RDW 12.3 (12.1-15.1) % Plt Count 327 (130-400) 10^3/c mm MPV 9.4 (7.4-10.4) fL Neut % (Auto) 66.9 % Lymph % (Auto) 24.6 % [place] % (Auto) 6.7 % Eos % (Auto) 0.8 % Baso % (Auto) 0.7 % Neut # (Auto) 8.00 H (1.8-7.7) 10^3/u L Lymph # (Auto) 3.0 (0.8-4.8) 10^3/u L [place] # (Auto) 0.8 (0.2-0.9) 10^3/u L Eos # (Auto) 0.1 (0.0-0.8) 10^3/u L Baso # (Auto) 0.1 (0.0-0.1) 10^3/u L Nucleated RBC % (a uto) 0 % Nucleated RBCs # 0.0 /100WBC Sodium 137 (136-145) mmol/L Potassium 3.9 (3.5-5.1) mmol/L Chloride 100 (98-107) mmol/L Carbon Dioxide 24 (22-29) mmol/L Anion Gap 16.9 (5-19) BUN 10 (6-20) mg/dL Creatinine 0.8 (0.5-0.9) mg/dL GFR Calculation 76.6 L (90-130) mL/min Glucose 120 H (65-115) mg/dL Calculated Osmolal ity 284 L (285-295) mOsm/k g Calcium 9.3 (8.5-10.5) mg/dL Total Bilirubin 0.2 (0.15-1.2) mg/dL AST 16 (0-32) U/L ALT 25 (0-33) U/L Alkaline Phosphata se 110 H (35-105) IU/L C-Reactive Protein 7.0 H (0.0-4.9) mg/L Total Protein 7.7 (6.6-8.7) g/dL Albumin 4.4 (3.5-5.2) g/dL Globulin 3.3 (1.3-4.6) g/dL Lipase 18 (13-60) U/L Urine Color Yellow (Yellow) Urine Appearance Clear (CLEAR) Urine pH 6.5 (5-7) Ur Specific Gravit y 1.005 (1.005-1.030) Urine Protein Neg (Negative) Urine Glucose (UA) Norm (Normal) Urine Ketones Negative (Negative) Urine Blood Neg (Negative) Urine Nitrate Negative (Negative) Urine Bilirubin Neg (Negative) Urine Urobilinogen Norm (Negative) mg/dL Ur Leukocyte Yuliet ase Negative (Negative) Discharge Plan Discharge Patient Disposition: Home Clinical Impression: Lumbar back pain with radiculopathy affecting lower extremity Condition: Stable Prescriptions: New ketorolac 10 mg tablet 10 mg PO TID PRN (Reason: pain) Qty: 10 RF: 0 Medrol (Jason) 4 mg tablets,dose pack See Rx Instructions .ROUTE .COMPLEX Qty: 21 RF: 0 No Action clonidine HCl 0.1 mg tablet 0.1 mg PO DAILY RF: 0 fluticasone propionate [Flonase Allergy Relief] 50 mcg/actuation spray,suspension 1 spray intranasal BID RF: 0 [id number]-rgxuneepqef-SxQf-NaHCO3 137 mcg-50 mcg- 0.9 % kit,spray suspension and spray 1 spray intranasal BID RF: 0 methylprednisolone acetate [Depo-Medrol] 40 mg/mL suspension 40 mg Infiltration ONCE Qty: 1 RF: 0 aripiprazole [Abilify] 30 mg tablet 30 mg PO .bedtime Qty: 30 RF: 3 duloxetine [Cymbalta] 30 mg capsule,delayed release(DR/EC) 30 mg PO .morning Qty: 30 RF: 4 duloxetine [Cymbalta] 60 mg capsule,delayed release(DR/EC) 60 mg PO .morning Qty: 30 RF: 4 hydroxyzine HCl 50 mg tablet 50 mg PO BID PRN (Reason: anxiety) Qty: 60 RF: 4 cyclobenzaprine 10 mg tablet 10 mg PO TID 90 Days Qty: 270 RF: 1 oxycodone 15 mg tablet 15 mg PO TID PRN (Reason: pain) 30 Days Qty: 90 RF: 0 oxycodone 15 mg tablet 15 mg PO TID PRN (Reason: pain) 30 Days Qty: 90 RF: 0 Linzess 290 mcg capsule See Rx Instructions .ROUTE .COMPLEX Qty: 30 RF: 2 phentermine 37.5 mg capsule 37.5 mg PO DAILY 30 Days Qty: 30 RF: 0 zonisamide 100 mg capsule 500 mg PO DAILY Qty: 450 RF: 1 magnesium oxide 400 mg magnesium tablet 400 mg PO Q6H Qty: 360 RF: 1 Dexilant 60 mg capsule,biphase delayed releas 60 mg PO DAILY Qty: 90 RF: 2 levocetirizine [Xyzal] 5 mg tablet 5 mg PO BID Qty: 240 RF: 1 Myrbetriq 25 mg tablet extended release 24 hr 25 mg PO Q24H Qty: 90 RF: 1 potassium chloride [Klor-Con 10] 10 mEq tablet extended release 15 meq PO DAILY Qty: 135 RF: 3 hydrochlorothiazide 25 mg tablet 37.5 mg PO DAILY Qty: 135 RF: 3 ferrous gluconate 324 mg (38 mg iron) tablet 324 mg PO DAILY 90 Days Qty: 90 RF: 0 cholecalciferol (vitamin D3) 1,250 mcg (50,000 unit) capsule 50,000 unit PO .weekly 90 Days Qty: 12 RF: 0 rosuvastatin [Crestor] 5 mg tablet 5 mg PO DAILY 30 Days Qty: 90 RF: 2 lactulose 10 gram/15 mL solution 10 g PO DAILY PRN (Reason: constipation) Qty: 237 RF: 0 Discharge Orders: Discharge ED (Routine); Ordered 03/26/21 Ordered By: Thierry Sood Referrals: JEREMIAH Mojica FNP [Primary Care Provider] - Pita Cabezas PA [Physician] - (as scheduled) Patient Instructions: Lumbar Radiculopathy (ED), Opioid Safety Activity Restrictions/Additional Instructions: Return for fever greater than 100, worsening pain despite treatment, worsening weakness, loss of function of your bowel or bladder control, any other concerning symptoms. Coding Level of Care Code ED Grounding Engineer for Robert Cornell
== END 2021-03-26 02:24 | disposition home or self-care (01) ==
PROVIDERS: Emergency Provider Emergency Medicine; PCP Nurse Practitioner Family
DX: M54.16 Radiculopathy, lumbar region (principal); Z79.891 Long term (current) use of opiate analgesic; Z87.891 Personal history of nicotine dependence; G89.29 Other chronic pain
CPT/HCPCS: 74176; 80053; 81003; 83690; 85025; 86140; 96374; 96375; 99284; J1170; J1885; J2405; J2930

== ENCOUNTER 2021-04-04 09:58 | Outpatient (CLI) | payer MEDICARE, MEDICAID, SELFPAY ==
[2021-03-14 10:34] VITALS: BP 123/82; BMI 34.3
[2021-04-04] MEDS: acetaminophen 500 mg Tablet 1000 MG PO (10:55)
[2021-04-04] MEDS: diphenhydrAMINE 50 mg/mL SDV 1mL 25 MG IVP (11:01)
== END 2021-04-04 09:59 | disposition home or self-care (01) ==
LOC: NSACUTE 10:00
PROVIDERS: PCP Nurse Practitioner Family; Visit Provider Specialist
DX: G35 Multiple sclerosis (principal); Z87.891 Personal history of nicotine dependence
CPT/HCPCS: 96365; 96366; 96375; 99213; J1200; J2350; J2930; J7040

== ENCOUNTER → 2021-04-07 07:14 | Outpatient (BNVA) | payer MEDICARE, MEDICAID, SELFPAY ==
[2021-03-14 10:34] VITALS: BP 123/82; BMI 34.3
== END ==
PROVIDERS: PCP Nurse Practitioner Family; Visit Provider Nurse Practitioner Psychiatric/Mental Health
DX: F31.63 Bipolar disorder, current episode mixed, severe, without psychotic features (principal); F41.0 Panic disorder [episodic paroxysmal anxiety]; F42.8 Other obsessive-compulsive disorder; F41.1 Generalized anxiety disorder; F60.3 Borderline personality disorder; F43.12 Post-traumatic stress disorder, chronic; F17.211 Nicotine dependence, cigarettes, in remission
CPT/HCPCS: 99214

== ENCOUNTER 2021-05-29 17:33 | Emergency (ER) | payer MEDICARE, MEDICAID, SELFPAY ==
[2021-03-14 10:34] VITALS: BP 123/82; BMI 34.3
[2021-05-29 17:44] VITALS: BP 136/89; PULSE 107; RESP 18; TEMP 37.1; O2SAT 97; BMI 38.7
[2021-05-29 17:45] VITALS: O2SAT 97
--- NOTE | 2021-05-29 18:04 | XRR_ITS ---
PROCEDURE INFORMATION: Exam: XR Chest Exam date and time: 05/29/2021 6:04 PM Age: 46 years old Clinical indication: Dyspnea; Additional info: Cough, fatigue, and recent covid + exposure TECHNIQUE: Imaging protocol: XR of the chest. Views: 1 view. COMPARISON: CR XR chest 1V portable [id number] 01/18/2020 6:52 PM FINDINGS: Lungs: Unremarkable. No consolidation. Pleural spaces: Unremarkable. No pleural effusion. No pneumothorax. Heart/Mediastinum: Unremarkable. No cardiomegaly. Bones/joints: Unremarkable. XR/XR chest 1V portable [id number] IMPRESSION: No acute findings.
--- NOTE | 2021-05-29 18:05 | ED_ITS ---
HPI - COVID General: Chief Complaint: COVID symptoms Stated Complaint: Headache/Nausea/Runny Nose/Covid Exposure Time Seen by Provider: 05/29/21 17:54 Triage information: Has fever, cough or shortness of breath . Exposure to COVID + person last 14 days History of Present Illness: HPI Narrative: Patient is a 46-year-old female comes to the ED with Covid symptoms. Patient is having a headache, nasal drainage and congestion, fatigue and cough. Symptoms started 3 days ago. She says her cough is sometimes productive but has not looked at sputum, so color and description unknown. Patient was in close contact with her daughter who tested positive for COVID-19 yesterday. She says she has been taking some Tessalon Perles to help with her cough. She reports some mild shortness of breath upon exertion. She has been able to eat and drink and keep fluids and food down but does describe some nausea. Patient has been fully vaccinated for COVID-19. COVID 19 common symptoms: positive fever(s), productive cough, dyspnea, fatigue, body aches, headache(s) and nausea; negative chills, non-productive cough, throat pain, nasal congestion, vomiting or diarrhea COVID 19 other sytmptoms: negative chest pain COVID Results: Nasal/Oral Coronavirus 2019 PCR Pending 05/29/21 18:00 05/29/21 Review of Systems Const: Reports: fever(s), body aches and fatigue; Denies: chills Eyes: Denies: change in vision or eye discomfort ENMT: Denies: throat pain, odynophagia, nasal discharge or nasal congestion Card: Denies: chest pain, palpitations, edema, swelling of feet/ankles, dyspnea on exertion or orthopnea Resp: Reports: dyspnea and productive cough; Denies: non-productive cough GI: Reports: nausea; Denies: abdominal pain, vomiting, diarrhea, constipation or hematochezia : Denies: flank pain, dysuria or hematuria Musc: Denies: neck pain, back pain or extremity swelling Skin/Breast: Denies: rash or new lesions Neuro: Reports: headache(s); Denies: numbness in extremities or weakness in extremities [facility] ED PFSH: Medical History Abnormal mammogram Anemia Bipolar I disorder, most recent episode mixed, severe without psychotic features Borderline personality disorder Chronic idiopathic constipation Chronic migraine Chronic posttraumatic stress disorder Decreased glomerular filtration rate (GFR) Disc displacement, thoracic Fatigue Generalized anxiety disorder Long-term current use of opiate analgesic Lumbar back pain with radiculopathy affecting lower extremity Medication management Mixed hyperlipidemia Multiple sclerosis Nicotine dependence, cigarettes, in remission in early remission, quit smoking on 10/22/20. Obesity FLORY treated with BiPAP Other obsessive-compulsive disorder Pain management contract signed Panic disorder without agoraphobia Spondylolisthesis of cervical region Spondylosis without myelopathy or radiculopathy, lumbar region Vitamin B12 deficiency anemia Vitamin D deficiency Surgical History History of partial hysterectomy History of removal of skin mole 11/19/19 [facility] Hx of cholecystectomy (~08/06/17) Hx of oophorectomy (~2010) LEFT Hx of tubal ligation Family History Mother Cancer UTERINE CANCER Lupus Family/Other Lupus AUNT Other Diabetes Hypertension Stroke Social History Smoking and tobacco status: current every day smoker Second hand smoke exposure: Yes Alcohol intake: former Adopted: No Caregiver/support person: No Lives independently: No Household members: none Housing: Apartment Marital status: Single Number of children: 3 Number of grandchildren: 1 Highest education level completed: Some College, No Degree service: No Current occupational status: disabled Pets and animals: Yes Pets & animals: dog(s) History of recent travel: No Leisure activites: other Leisure activities details: watch tv Sexually active: No Current gender identity: Female Elisabeth/Mu-Ism: None Financial difficulty paying for basics: Not Very Hard Female Reproductive History: Para: 3 Spontaneous abortions: No Physical Exam Narrative: EXAM NARRATIVE: Patient has healthy and pleasant 46-year-old female that appears in no acute distress or pain. Const: COMMON NORMALS: no acute distress, patient oriented x3, healthy appearing and alert GENERAL APPEARANCE: cooperative and comfortable HENMT: COMMON NORMALS: normocephalic HEAD & SCALP: normocephalic MOUTH: Normal oral and palatal mucosa present THROAT: posterior oropharynx normal and uvula midline Eye: COMMON NORMALS: Equal, round and reactive pupils present PUPIL: Yes Equal, round and reactive pupils present Neck/C-Spine: COMMON NORMALS: supple GENERAL: Yes normal visual inspection Resp: COMMON NORMALS: normal respiratory effort, No retractions, No use of accessory muscles and clear to auscultation bilaterally EFFORT & INSPECTION: Yes able to speak in complete sentences, No tachypneic, No respiratory distress and No labored AUSCULTATION: clear to auscultation bilaterally Cardio: COMMON NORMALS: regular rate, regular rhythm, S1 normal heart sound present, S2 normal heart sound present, No gallops present (Cardio), No clicks present (Cardio), No murmurs present (Cardio) and Peripheral pulses 2+ throughout RATE: regular rate RHYTHM: regular rhythm HEART SOUNDS: S1 normal heart sound present and S2 normal heart sound present PERIPHERAL P ULSES: Peripheral pulses 2+ throughout GI: COMMON NORMALS: Normal to inspection, nondistended, normoactive bowel sounds present, Soft to palpation, non-tender and no masses PALPATION: Yes Soft to palpation : COMMON NORMALS: Yes no CVA tenderness BLADDER/KIDNEY EXAM: Yes no CVA tenderness Back/Pelvis: COMMON NORMALS: no CVA tenderness Extremity: COMMON NORMALS: normal to inspection Neuro: COMMON NORMALS: patient oriented x3 and moves all extremities SENSORIUM/ORIENTATION: Yes alert Skin: GENERAL SKIN EXAM: dry skin Course Vital Signs: Vital signs: Vital Signs Temperature 98.7 F 05/29/21 17:44 Pulse Rate 88 05/29/21 19:52 Respiratory Rate 20 H 05/29/21 19:52 Blood Pressure 132/88 05/29/21 19:52 Pulse Oximetry 96 05/29/21 19:52 MDM - COVID MDM Narrative: Medical decision making narrative: Patient is a 46-year-old female who comes to the ED with recent exposure to positive COVID-19 patient and started having symptoms approximately 2 days ago. Her symptoms are mild. Exam shows a healthy nontoxic appearing 46-year-old female in no acute distress or pain. Her lungs are clear to all station bilaterally. Vitals are stable. Chest x-ray showed no acute findings. A COVID-19 PCR send out test was performed and pending. Patient was given self quarantine instructions and discharged home with a prescription for Zofran for nausea. Return to ED precautions given. Follow-up with PCP in 7 to 10 days reevaluation. I discussed with patient if she does test positive for COVID-19 she can contact her PCP to discuss monoclonal antibody treatment and potentially get that set up for outpatient treatment. Patient understood and agreed with plan. Lab Data: Attestation: I reviewed the patient's lab results. Imaging Data: CXR: Attestation: I personally reviewed and interpreted this imaging study as follows: Radiologist's impression: [address] [address]AAhr ReportSigned Patient: Odalys Casiano #: [id number]: 1975Acct#:[id number]/Sex: 46 / FADM Date: 05/29/21Loc: ERRoom/Bed:Attending Dr: Ordering Provider/Ordering MD: Kyler Downey Date of Service: 05/29/21 Procedure(s): XR chest 1V portable [id number] Accession Number(s): [id number] Report Number: [id number] PROCEDURE INFORMATION: Exam: XR Chest Exam date and time: 05/29/2021 6:04 PM Age: 46 years old Clinical indication: Dyspnea; Additional info: Cough, fatigue, and recent covid + exposure TECHNIQUE: Imaging protocol: XR of the chest. Views: 1 view. COMPARISON: CR XR chest 1V portable [id number] 01/18/2020 6:52 PM FINDINGS: Lungs: Unremarkable. No consolidation. Pleural spaces: Unremarkable. No pleural effusion. No pneumothorax. Heart/Mediastinum: Unremarkable. No cardiomegaly. Bones/joints: Unremarkable. XR/XR chest 1V portable [id number] IMPRESSION: No acute findings. Dictated By:Maikel Turcios By:Maikel Turcios Date/Time:05/29/213DD/ 00 COVID Results: Nasal/Oral Coronavirus 2019 PCR Pending 05/29/21 18:00 05/29/21 Discharge Plan Discharge Patient Disposition: Home Clinical Impression: Viral syndrome, Exposure to severe acute respiratory syndrome coronavirus 2 (SARS-CoV-2), Exposure to COVID-19 virus Condition: Stable Prescriptions: New ondansetron 4 mg tablet,disintegrating 4 mg PO Q8H PRN (Reason: nausea and vomiting) Qty: 15 RF: 0 prednisone 50 mg tablet 50 mg PO DAILY 5 Days Qty: 5 RF: 0 No Action fluticasone propionate [Flonase Allergy Relief] 50 mcg/actuation spray,suspension 1 spray intranasal BID RF: 0 fonycr-fmpkzuymfjn-WhNo-NaHCO3 137 mcg-50 mcg- 0.9 % kit,spray suspension and spray 1 spray intranasal BID RF: 0 aripiprazole [Abilify] 30 mg tablet 30 mg PO .bedtime Qty: 90 RF: 3 duloxetine [Cymbalta] 60 mg capsule,delayed release(DR/EC) 60 mg PO .morning Qty: 90 RF: 3 duloxetine [Cymbalta] 30 mg capsule,delayed release(DR/EC) 30 mg PO .morning Qty: 90 RF: 3 hydroxyzine HCl 50 mg tablet 50 mg PO BID PRN (Reason: anxiety) Qty: 60 RF: 6 Linzess 290 mcg capsule See Rx Instructions .ROUTE .COMPLEX Qty: 30 RF: 2 zonisamide 100 mg capsule 500 mg PO DAILY Qty: 450 RF: 1 magnesium oxide 400 mg magnesium tablet 400 mg PO Q6H Qty: 360 RF: 1 Dexilant 60 mg capsule,biphase delayed releas 60 mg PO DAILY Qty: 90 RF: 2 levocetirizine [Xyzal] 5 mg tablet 5 mg PO BID Qty: 240 RF: 1 hydrochlorothiazide 25 mg tablet 37.5 mg PO DAILY Qty: 135 RF: 3 ferrous gluconate 324 mg (38 mg iron) tablet 324 mg PO DAILY 90 Days Qty: 90 RF: 0 cholecalciferol (vitamin D3) 1,250 mcg (50,000 unit) capsule 50,000 unit PO .weekly 90 Days Qty: 12 RF: 0 rosuvastatin [Crestor] 5 mg tablet 5 mg PO DAILY 30 Days Qty: 90 RF: 2 Myrbetriq 25 mg tablet extended release 24 hr 25 mg PO Q24H Qty: 90 RF: 1 potassium chloride [Klor-Con 10] 10 mEq tablet extended release 15 meq PO DAILY Qty: 135 RF: 3 Discharge Orders: Discharge ED (Routine); Ordered 05/29/21 Ordered By: Kyler Downey Referrals: JEREMIAH Mojica, [employer] [Primary Care Provider] - Discharge Diet: Regular Discharge Activity: Limit activity as instructed Patient Instructions: Viral Syndrome (ED) Activity Restrictions/Additional Instructions: Follow-up with medical provider as directed in 7-10 days. COVID testing was per formed and sent to lab and results will be back in 1 to 2 days. [facility] should contact you to let you know Covid results, but you can also contact [facility] to find out results as well. Self quarantine until you get Covid results. If positive self quarantine for the next 10 days starting from day of onset of symptoms. Take ibuprofen or Tylenol for fevers. Drink plenty of fluids and stay hydrated. Symptom management with [id number] cough and nasal decongestant meds. Return to the ER or your medical provider if condition worsens. Please read and understand discharge instructions. If any questions, please ask Coding Level of Care Code ED F[employer] And Wellness Coordinator for Robert Cornell Exam Comprehensive
[2021-05-29 19:52] VITALS: BP 132/88; PULSE 88; RESP 20; O2SAT 96
[2021-05-30 14:08] LABS: Coronavirus Test Green County Not Detected
--- NOTE | 2021-05-31 07:51 | PC.NURSE ---
[PT CONTACTED AND GIVEN THE RESULTS OF HER COVID TEST
== END 2021-05-29 19:53 | disposition home or self-care (01) ==
PROVIDERS: Emergency Provider Physician Assistant; PCP Nurse Practitioner Family
DX: B34.9 Viral infection, unspecified (principal); Z20.822 Contact with and (suspected) exposure to COVID-19; E78.2 Mixed hyperlipidemia; G35 Multiple sclerosis; F17.210 Nicotine dependence, cigarettes, uncomplicated
CPT/HCPCS: 71045; 87635; 99282

== ENCOUNTER 2021-06-01 10:28 | Outpatient (CLI) | payer MEDICARE, MEDICAID, SELFPAY ==
[2021-03-14 10:34] VITALS: BP 123/82; BMI 34.3
--- NOTE | 2021-06-01 12:00 | US_ITS ---
WS: [id number] ULTRASOUND BREAST LEFT TECHNIQUE: Ultrasound left breast focused area of concern. CLINICAL INFORMATION: R92.8 - Other abnormal and inconclusive findings on diagn... COMPARISON: November 23, 2020 FINDINGS: Ultrasound left breast at the 6:00 position. Comparison prior ultrasound November 2020. Again seen ar e a few dilated ducts consistent with ductal ectasia. Small cluster of cysts is again visualized sabi uring 6.5 x 6.5 x 3.8 mm. This is unchanged in appearance since November 23, 2020. A few internal sep tations. Recommend additional six-month follow-up ultrasound to ensure stability. US/US breast LT limited* [id number] IMPRESSION: BI-RADS 3 Probably benign Follow up: Recommend 6 month ultrasound left breast
== END 2021-06-01 10:29 | disposition home or self-care (01) ==
PROVIDERS: PCP Nurse Practitioner Family; Visit Provider Nurse Practitioner Family
DX: R92.8 Other abnormal and inconclusive findings on diagnostic imaging of breast (principal)
CPT/HCPCS: 76642

== ENCOUNTER 2021-06-02 14:30 | Outpatient (CLI) | payer MEDICARE, MEDICAID, SELFPAY ==
[2020-10-12 16:38] VITALS: BP 123/82; BMI 34.3
[2021-03-14 10:34] VITALS: BP 123/82; BMI 34.3
--- NOTE | 2021-06-02 14:37 | US_ITS ---
WS: [id number] ULTRASOUND RENAL TECHNIQUE: Ultrasound examination of both kidneys. CLINICAL INFORMATION: STAGE 3A CHRONIC KIDNEY DZ COMPARISON: None. FINDINGS: RIGHT: Right kidney is normal in size and appearance. Echogenicity: Normal. Cortical thickness: 1.0 cm; Normal. Hydronephrosis: None. Perinephric fluid: None. Right kidney measures: 10.1 cm x 4.5 cm x 5.5 cm. LEFT: Left kidney is normal in size and appearance. Echogenicity: Normal. Cortical thickness: 1.0 cm; Normal. Hydronephrosis: None. Perinephric fluid: None. Left kidney measures: 11.1 cm x 4.6 cm x 4.2 cm. Normal visualized aorta. Normal bladder. US/US renal BI* [id number] IMPRESSION: Normal renal ultrasound.
== END 2021-06-02 14:31 | disposition home or self-care (01) ==
LOC: RAD 14:30
PROVIDERS: PCP Nurse Practitioner Family; Visit Provider Registered Nurse
DX: N18.31 Chronic kidney disease, stage 3a (principal)
CPT/HCPCS: 76770

== ENCOUNTER 2021-06-28 12:41 | Outpatient (RCR) | payer MEDICARE, MEDICAID, SELFPAY ==
[2021-03-14 10:34] VITALS: BP 123/82; BMI 34.3
== END 2021-07-21 23:59 | disposition home or self-care (01) ==
LOC: SPT 12:41
PROVIDERS: PCP Nurse Practitioner Family; Referring Provider General Practice; Visit Provider General Practice
DX: G89.4 Chronic pain syndrome (principal)
CPT/HCPCS: 97113; 97161

== ENCOUNTER → 2021-07-07 10:41 | Outpatient (BNVA) | payer MEDICARE, MEDICAID, SELFPAY ==
[2021-03-14 10:34] VITALS: BP 123/82; BMI 34.3
== END ==
PROVIDERS: PCP Nurse Practitioner Family; Visit Provider Surgery
DX: Z20.822 Contact with and (suspected) exposure to COVID-19 (principal); Z11.52 Encounter for screening for COVID-19
CPT/HCPCS: 87635

== ENCOUNTER 2021-07-13 08:41 | Day surgery (SDC) | payer MEDICARE, MEDICAID, SELFPAY ==
[2021-03-14 10:34] VITALS: BP 123/82; BMI 34.3
[2021-07-11 08:52] VITALS: BMI 38.2
--- NOTE | 2021-07-13 09:25 | W.PM.OPSFHP ---
Same Day Surgery H&P Indication for Procedure/HPI DATE OF PROCEDURE: July 13, 2021 CHIEF COMPLAINT/INDICATIONFOR SURGICAL PROCEDURE: History of obesity and screening colonoscopy PREOP DIAGNOSIS: Obesity and screening colonoscopy PLANNED PROCEDRUE: Operation Date: 07/13/21 09:30 Proposed Procedures p Colonoscopy 45432 40244 K52.9 K59.04(Not Applicable) - Ayaan Villatoro MD s EGD 69014 30480 K52.9 K59.04(Not Applicable) - Ayaan Villatoro MD Patient comes today as a follow-up and she did not lose much weight. She did gain some has been on phentermine and she is trying to walk. Unfortunately she continues to smoke. Current weight of 233 pounds and a BMI of 38.7 Interim history 07/13/2021 Patient comes today for diagnostic EGD and screening colonoscopy ROS All systems have been reviewed negative except as per the above or per problem list Medications/Allergies* Home Medications Medication Instructions Recorded Confirmed Type azelastine 137 mcg-fluticasone 50 1 spray INTRANASAL BID 11/11/20 07/11/21 History mcg spray,susp-NaCl 0.9% spray nasal fluticasone propionate 50 1 spray INTRANASAL BID 11/11/20 07/11/21 History mcg/actuation nasal spray,suspension Allergies/Adverse Reactions Allergy/AdvReac Type Severity Reaction Status Date / Time bee venom protein (honey bee) Allergy Unknown Unknown Verified 07/13/21 10:11 codeine AdvReac Unknown Unknown Verified 07/13/21 10:11 DOESN'T RECALL lamotrigine [From Lamictal] AdvReac Unknown RASH Verified 07/13/21 10:11 Penicillins AdvReac Unknown Unknown Verified 07/13/21 10:11 latex AdvReac RASH Verified 07/13/21 10:11 Pertinent History/Comorbid Conditions* Medical History (Updated 06/30/21 @ 11:27 by Genny Park) Abnormal mammogram Anemia Bipolar I disorder, most recent episode mixed, severe without psychotic features Borderline personality disorder Chronic idiopathic constipation Chronic migraine Chronic posttraumatic stress disorder Decreased glomerular filtration rate (GFR) Disc displacement, thoracic Fatigue Generalized anxiety disorder Long-term current use of opiate analgesic Lumbar back pain with radiculopathy affecting lower extremity Medication management Mixed hyperlipidemia Multiple sclerosis Nicotine dependence, cigarettes, in remission in early remission, quit smoking on 1/01/21. Obesity FLORY treated with BiPAP Other obsessive-compulsive disorder Pain management contract signed Panic disorder without agoraphobia Psychiatric care Spondylolisthesis of cervical region Spondylosis without myelopathy or radiculopathy, lumbar region Vitamin B12 deficiency anemia Vitamin D deficiency Surgical History (Updated 11/21/19 @ 16:03 by MICHELE Shepherd) History of partial hysterectomy History of removal of skin mole 11/19/19 [facility] Hx of cholecystectomy (~08/06/17) Hx of oophorectomy (~2010) LEFT Hx of tubal ligation Family History (Updated 11/20/19 @ 16:19 by Caitlyn Nichols LPN) Diabetes Lupus Mother Family/Other AUNT Cancer Mother UTERINE CANCER Hypertension Stroke Social History Smoking and tobacco status: current every day smoker Second hand smoke exposure: Yes Alcohol intake: former Adopted: No Caregiver/support person: No Lives independently: No Household members: none Housing: Apartment Marital status: Single Number of children: 3 Number of grandchildren: 1 Highest education level completed: Some College, No Degree service: No Current occupational status: disabled Pets and animals: Yes Pets & animals: dog(s) History of recent travel: No Leisure activites: other Leisure activities details: watch tv Sexually active: No Current gender identity: Female Elisabeth/Advent: None Financial difficulty paying for basics: Not Very Hard Pertinent Exam Findings alert, oriented x 3, clear to auscultation bilaterally, regular rate & rhythm and procedure specific exam findings (Abdominal examination nontender nondistended soft, obese) Recommendations Surgery/Procedure today (EGD and colonoscopy) Other Plans: Plan of care; After thorough history and physical examination and reviewing the chart, plan to perform a diagnostic esophagogastroduodenoscopy and diagnostic colonoscopy with possible biopsy and possible polypectomy. I discussed with the patient in detail the risks,benefits,alternatives and indications.The risk of aspiration, bleeding, soft tissue injury, perforation of the stomach/esophagus/colon and other potential concomitant complications were explained to the patient in details also the potential need for Thoracotomy and or Laproscoy/Laparotomy to repair any related complications including but not limited to colectomy and or Closotomy. The patient understood this well and did agree to proceed. Rationale was carefully and clearly discussed with the patient.Appropriate informed consent have been reviewed and signed Verbal and written Instructions were given to the patient for colonoscopy prep Coding Level of Care Code Acute Premium Service Representative for Chg Fwd
[2021-07-13 09:32] VITALS: BP 114/90; PULSE 88; RESP 18; TEMP 36.3; O2SAT 100
--- NOTE | 2021-07-13 09:50 | P.ANESASSM_ITS ---
Pre-Anesthetic Assessment Pre-Anesthetic Assessment: Height/Weight: Height 1.65 m Weight 104.326 kg Temp Pulse Resp BP Pulse Ox 97.3 F L 88 18 114/90 100 07/13/21 09:32 07/13/21 09:32 07/13/21 09:32 07/13/21 09:32 07/13/21 09:32 Preop Diagnosis: Obesity and screening colonoscopy Proposed Procedure: Operation Date: 07/13/21 09:30 Proposed Procedures p Colonoscopy 21592 60832 K52.9 K59.04(Not Applicable) - Ayaan Villatoro MD s EGD [id number] 02591 K52.9 K59.04(Not Applicable) - Ayaan Villatoro MD Was Beta Kunal taken within 24 hours: N/A Was Clonidine taken within 24 hours: N/A Last intake: Intake Last Liquid Date 07/12/21 Last Liquid Time 16:00 Last Solid Date 07/11/21 Last Solid Time 19:00 Social: Social History: Tobacco and No alcohol Exam: Pre-Anes Outpt Exam: alert, oriented x 3 and regular rate & rhythm Airway: Submandibular: WNL Cervical ROM: WNL MP: 2 Dentition: False Pulmonary: Pulmonary: Sleep apnea CV/HEM: CV/HEM: Anemia and HTN GI: GI: GERD Metabolic: Metabolic: Hyperlipidemia and Morbid obesity Musc/skel: Musc/skel: Lower Back Pain Comments: MS Neuropsych: Neuropsych: Anxiety and Depression Anesthetic Plan: ASA status: 3 Anesthesia: MAC Risk of > 500 ml blood loss (7ml/kg in children): No PFSH Anesthesia PFSH: Medical History (Updated 06/30/21 @ 11:27 by Genny Park) Abnormal mammogram Anemia Bipolar I disorder, most recent episode mixed, severe without psychotic features Borderline personality disorder Chronic idiopathic constipation Chronic migraine Chronic posttraumatic stress disorder Decreased glomerular filtration rate (GFR) Disc displacement, thoracic Fatigue Generalized anxiety disorder Long-term current use of opiate analgesic Lumbar back pain with radiculopathy affecting lower extremity Medication management Mixed hyperlipidemia Multiple sclerosis Nicotine dependence, cigarettes, in remission in early remission, quit smoking on 10/22/20. Obesity FLORY treated with BiPAP Other obsessive-compulsive disorder Pain management contract signed Panic disorder without agoraphobia Psychiatric care Spondylolisthesis of cervical region Spondylosis without myelopathy or radiculopathy, lumbar region Vitamin B12 deficiency anemia Vitamin D deficiency Surgical History History of partial hysterectomy History of removal of skin mole 11/19/19 [facility] Hx of cholecystectomy (~08/06/17) Hx of oophorectomy (~2010) LEFT Hx of tubal ligation Family History Mother Cancer UTERINE CANCER Lupus Family/Other Lupus AUNT Other Diabetes Hypertension Stroke Social History Smoking and tobacco status: current every day smoker Second hand smoke exposure: Yes Alcohol intake: former Adopted: No Caregiver/support person: No Lives independently: No Household members: none Housing: Apartment Marital status: Single Number of children: 3 Number of grandchildren: 1 Highest education level completed: Some College, No Degree service: No Current occupational status: disabled Pets and animals: Yes Pets & animals: dog(s) History of recent travel: No Leisure activites: other Leisure activities details: watch tv Sexually active: No Current gender identity: Female Elisabeth/Rastafari: None Financial difficulty paying for basics: Not Very Hard Female Reproductive History: Para: 3 Spontaneous abortions: No Data Anesthesia Cardiac Studies: No Data to Display
[2021-07-13] MEDS: sodium chloride 0.9% 1,000 ML 30 ML IV (09:54)
[2021-07-13 10:38] VITALS: BP 126/84; PULSE 70; RESP 16; TEMP 36.1; O2SAT 100
[2021-07-13 10:49] VITALS: BP 125/99; PULSE 92; RESP 18; O2SAT 100
--- NOTE | 2021-07-13 11:34 | PM.PACU ---
PACU note Post-Anesthesia Exam: awake and vital signs stable Disposition: discharged
--- NOTE | 2021-07-13 13:54 | ANE.PACU2 ---
Inpatient post-anesthesia follow up: Airway intact: Yes Vital signs: Temperature 97.0 F Pulse Rate 92 Respiratory Rate 18 Blood Pressure 125/99 Pulse Oximetry 100 Oxygen Delivery Me thod Room Air Oxygen Flow Rate 2 Fraction of Inspir ed Oxygen Hydration adequate: Yes Nausea and vomiting: No Pain level: 1 Mental status: Baseline
[2021-07-14 10:45] LABS: H. Pylori / CLO Test Negative
== END 2021-07-13 11:02 | disposition home or self-care (01) ==
PROVIDERS: PCP Nurse Practitioner Family; Visit Provider Surgery
PROC: 0DJD8ZZ Inspection of Lower Intestinal Tract, Via Natural or Artificial Opening Endoscopic (ICD-10-PCS; CPT 45378; principal; 2021-07-13 09:30)
PROC: 0DJ08ZZ Inspection of Upper Intestinal Tract, Via Natural or Artificial Opening Endoscopic (ICD-10-PCS; CPT 43235; 2021-07-13 09:30)
DX: Z12.11 Encounter for screening for malignant neoplasm of colon (principal); D12.5 Benign neoplasm of sigmoid colon; K57.30 Diverticulosis of large intestine without perforation or abscess without bleeding; K21.00 Gastro-esophageal reflux disease with esophagitis, without bleeding; K29.70 Gastritis, unspecified, without bleeding; E66.9 Obesity, unspecified; Z68.38 Body mass index [BMI] 38.0-38.9, adult; E78.2 Mixed hyperlipidemia; G47.33 Obstructive sleep apnea (adult) (pediatric); F17.210 Nicotine dependence, cigarettes, uncomplicated
CPT/HCPCS: 43239; 45385; 87077; 88305; 96360; J2704; J3490; J7030

== ENCOUNTER → 2021-07-21 12:48 | Outpatient (BNVA) | payer MEDICARE, MEDICAID, SELFPAY ==
[2021-03-14 10:34] VITALS: BP 123/82; BMI 34.3
== END ==
PROVIDERS: PCP Nurse Practitioner Family; Visit Provider Nurse Practitioner Psychiatric/Mental Health
DX: F31.63 Bipolar disorder, current episode mixed, severe, without psychotic features (principal); F41.0 Panic disorder [episodic paroxysmal anxiety]; F41.1 Generalized anxiety disorder; F42.8 Other obsessive-compulsive disorder; F60.3 Borderline personality disorder
CPT/HCPCS: 99214

== ENCOUNTER 2021-07-22 06:00 | Outpatient (RCR) | payer MEDICARE, MEDICAID, SELFPAY ==
[2021-03-14 10:34] VITALS: BP 123/82; BMI 34.3
== END 2021-08-21 23:59 | disposition home or self-care (01) ==
LOC: SPT 06:00
PROVIDERS: PCP Nurse Practitioner Family; Referring Provider General Practice; Visit Provider General Practice
DX: G89.4 Chronic pain syndrome (principal)
CPT/HCPCS: 97113

== ENCOUNTER 2021-08-08 08:00 | Outpatient (RCR) | payer MEDICARE, MEDICAID, SELFPAY ==
[2021-03-14 10:34] VITALS: BP 123/82; BMI 34.3
[2021-08-06 08:39] VITALS: BP 125/82; PULSE 99; RESP 18; TEMP 36.1; O2SAT 98
[2021-08-07 07:57] VITALS: BP 132/85; PULSE 110; RESP 18; TEMP 36.6; O2SAT 97
[2021-08-08 08:00] VITALS: BP 113/85; PULSE 98; RESP 18; TEMP 37.1; O2SAT 100
== END 2021-08-21 23:59 | disposition home or self-care (01) ==
LOC: OPS 08:00
PROVIDERS: PCP Nurse Practitioner Family; Visit Provider Specialist
DX: G35 Multiple sclerosis (principal)
CPT/HCPCS: 96365; J2930; J7050

== ENCOUNTER → 2021-08-19 10:33 | Outpatient (BNVA) | payer MEDICARE, MEDICAID, SELFPAY ==
[2021-03-14 10:34] VITALS: BP 123/82; BMI 34.3
== END ==
PROVIDERS: PCP Nurse Practitioner Family; Visit Provider Nurse Practitioner Psychiatric/Mental Health
DX: F31.63 Bipolar disorder, current episode mixed, severe, without psychotic features (principal); F41.0 Panic disorder [episodic paroxysmal anxiety]; F42.8 Other obsessive-compulsive disorder; F41.1 Generalized anxiety disorder; F60.3 Borderline personality disorder; F43.12 Post-traumatic stress disorder, chronic; F17.211 Nicotine dependence, cigarettes, in remission
CPT/HCPCS: 99214

== ENCOUNTER 2021-08-22 06:00 | Outpatient (RCR) | payer MEDICARE, MEDICAID, SELFPAY ==
[2021-03-14 10:34] VITALS: BP 123/82; BMI 34.3
== END 2021-09-20 23:59 | disposition home or self-care (01) ==
LOC: SPT 06:00
PROVIDERS: PCP Nurse Practitioner Family; Visit Provider General Practice
DX: G89.4 Chronic pain syndrome (principal)
CPT/HCPCS: 97113; 97164

== ENCOUNTER 2021-09-12 09:33 | Outpatient (CLI) | payer MEDICARE, MEDICAID, SELFPAY ==
[2021-03-14 10:34] VITALS: BP 123/82; BMI 34.3
[2021-09-12 10:12] LABS: Basophils # 0.1 10^3/uL (0.0-0.1); Basophils % 0.8 %; Eosinophils # 0.1 10^3/uL (0.0-0.8); Eosinophils % 1.2 %; Hematocrit 41.6 % (37.0-47.0); Hemoglobin 14.2 g/dL (11.5-15.3); Lymphocytes # 2.6 10^3/uL (0.8-4.8); Lymphocytes % 35.2 %; Mean Corpuscular HGB Conc 34.1 g/dL (30.0-36.0); Mean Corpuscular Hemoglobin 31.8 pg (28.0-34.0); Mean Corpuscular Volume 93.1 fl (81-99); Monocytes # 0.6 10^3/uL (0.2-0.9); Monocytes % 8.3 %; Neutrophils # 3.95 10^3/uL (1.8-7.7); Neutrophils % 54.1 %; Nucleated Red Blood Cells % 0 %; Platelet Count 318 10^3/cmm (130-400); Red Blood Count 4.47 10^6/uL (4.1-5.3); Red Cell Distribution Width 11.8 % (12.1-15.1); White Blood Count 7.3 10^3/uL (4.0-10.0)
[2021-09-12 10:43] LABS: Creatinine Urine, Random 16 mg/dL (28-217)
[2021-09-12 10:45] LABS: Albumin Level 4.3 g/dL (3.5-5.2); Anion Gap 14.2 (5-19); Blood Urea Nitrogen 13 mg/dL (6-20); Calcium 9.3 mg/dL (8.5-10.5); Carbon Dioxide 28 mmol/L (22-29); Chloride 99 mmol/L (98-107); Glomerular Filtration Rate 59.2 mL/min (90-130); Glucose 86 mg/dL (65-115); Phosphorus 2.6 mg/dL (2.5-4.5); Potassium 3.2 mmol/L (3.5-5.1); Sodium 138 mmol/L (136-145)
[2021-09-12 10:47] LABS: Calcium 9.3 mg/dL (8.5-10.5)
[2021-09-12 10:49] LABS: Microalbum Creatinine Ratio Ur 63 mg/dL (0-20); Microalbumin Random Urine 1 ug/dL (0-20)
[2021-09-12 10:50] LABS: Parathyroid Hormone 43.4 pg/mL (15-65)
[2021-09-12 11:05] LABS: Slide Review Slide Review Perform
== END 2021-09-12 09:34 | disposition home or self-care (01) ==
PROVIDERS: PCP Nurse Practitioner Family; Visit Provider Internal Medicine Nephrology
DX: N18.31 Chronic kidney disease, stage 3a (principal)
CPT/HCPCS: 36415; 80069; 82044; 82310; 83970; 85025

== ENCOUNTER 2021-09-21 06:00 | Outpatient (RCR) | payer MEDICARE, MEDICAID, SELFPAY ==
[2021-03-14 10:34] VITALS: BP 123/82; BMI 34.3
== END 2021-10-05 23:59 | disposition home or self-care (01) ==
LOC: SPT 06:00
PROVIDERS: PCP Nurse Practitioner Family; Visit Provider General Practice
DX: G89.4 Chronic pain syndrome (principal)
CPT/HCPCS: 97110; 97113

== ENCOUNTER 2021-11-02 10:22 | Outpatient (CLI) | payer MEDICARE, MEDICAID, SELFPAY ==
[2021-10-17 18:57] VITALS: BP 123/82; BMI 34.3
[2021-11-02 10:10] VITALS: BP 121/81; PULSE 99; RESP 18; TEMP 36.6; O2SAT 96
[2021-11-02] MEDS: acetaminophen 500 mg Tablet 1000 MG PO (10:40)
[2021-11-02] MEDS: diphenhydrAMINE 50 mg/mL SDV 1mL 25 MG IV (10:43)
[2021-11-02] MEDS: sodium chloride 0.9% 250 ML 50 ML IV (10:43)
[2021-11-02 11:09] VITALS: BP 107/71; PULSE 81; RESP 18; TEMP 36.7; O2SAT 93
[2021-11-02 11:57] VITALS: BP 109/74; PULSE 91; RESP 18; TEMP 36.3; O2SAT 94
[2021-11-02 13:55] VITALS: BP 109/71; PULSE 90; RESP 18; TEMP 36.5; O2SAT 94
== END 2021-11-02 10:23 | disposition home or self-care (01) ==
LOC: ONCMED 10:23
PROVIDERS: PCP Nurse Practitioner Family; Referring Provider Specialist; Visit Provider Nurse Practitioner Family
DX: G35 Multiple sclerosis (principal)
CPT/HCPCS: 96365; 96366; 96375; J1200; J2350; J2930; J7040; J7050

== ENCOUNTER → 2021-11-09 11:31 | Outpatient (BNVA) | payer MEDICARE, MEDICAID, SELFPAY ==
[2021-10-17 18:57] VITALS: BP 123/82; BMI 34.3
== END ==
PROVIDERS: PCP Nurse Practitioner Family; Visit Provider Specialist
DX: G35 Multiple sclerosis (principal); M54.50 Low back pain, unspecified; Z87.891 Personal history of nicotine dependence
CPT/HCPCS: 99214

== ENCOUNTER → 2021-12-05 08:23 | Outpatient (BNVA) | payer MEDICARE, MEDICAID, SELFPAY ==
[2021-10-17 18:57] VITALS: BP 123/82; BMI 34.3
== END ==
PROVIDERS: PCP Nurse Practitioner Family; Visit Provider Nurse Practitioner Psychiatric/Mental Health
DX: F31.63 Bipolar disorder, current episode mixed, severe, without psychotic features (principal); F41.0 Panic disorder [episodic paroxysmal anxiety]; F41.1 Generalized anxiety disorder; F60.3 Borderline personality disorder; F43.12 Post-traumatic stress disorder, chronic
CPT/HCPCS: 99214

== ENCOUNTER → 2021-12-19 08:42 | Outpatient (BNVA) | payer MEDICARE, MEDICAID, SELFPAY ==
[2021-10-17 18:57] VITALS: BP 123/82; BMI 34.3
== END ==
PROVIDERS: PCP Nurse Practitioner Family; Visit Provider Surgery
DX: Z20.822 Contact with and (suspected) exposure to COVID-19 (principal); E66.01 Morbid (severe) obesity due to excess calories
CPT/HCPCS: 87635

== ENCOUNTER 2022-01-10 16:14 | Inpatient (IN) | payer MEDICARE, MEDICAID, SELFPAY ==
[2021-10-17 18:57] VITALS: BP 123/82; BMI 34.3
--- NOTE | 2022-01-05 13:41 | ANES.PREANE2 ---
Pre-Anesthetic Assessment Height/Weight: Height 1.65 m Preop Diagnosis: Obesity and screening colonoscopy Operation Date: 01/10/22 08:30 Proposed Procedures p Laparoscopic Gastric Sleeve w/ EGD [id number]/e66.01(Not Applicable) - Ayaan Villatoro MD Familial anesthetic complications: none Was Beta Kunal taken within 24 hours: Yes Was Clonidine taken within 24 hours: N/A Social No alcohol and No tobacco Exam alert, oriented x 3, clear to auscultation bilaterally and regular rate & rhythm Airway Submandibular: within normal limits Cervical ROM: within normal limits Mallampati: Class II Comments: Comments: Missing teeth History/ROS No significant complaints Pulmonary Sleep Apnea Unable to breath through nose CV/HEM Arrythmia (Hx of tachycardia ) and Hypertension Chronic Renal Insufficiency Metabolic Morbid Obesity Musc/skel Lower Back Pain and Osteoarthritis/DJD Neuropsych Anxiety, Bipolar and Neuropathy (Radiculopathy of LE) PTSD Panic with agoraphobia Anesthetic Plan ASA status: 3 (Morbidly obese female for gastric surgery with hx of FLORY on BiPAP, bipolar disorder, and HTN) Anesthesia: Anesthesia Evaluation and General Other: We discussed risk and benefits of general anesthesia including PONV, sore throat (sometimes severe), corneal abrasion, positioning and peripheral nerve injuries, life threatening allergic reaction, post operative ICU admission requiring prolonged intubation, stroke, heart attack, , and rare incidences of recall. Patient consents to proceed with general anesthesia. Plan multi modal analgesia with minimization of narcotics. Patient is unable to breath through nose, use BiPAP. Patient intends to bring BiPAP device to hospital on day of surgery. Risk of > 500 ml blood loss (7ml/kg in children): No Medications/Allergies Home Medications Medication Instructions Recorded Confirmed Last Taken Type azelastine 137 mcg-fluticasone 50 1 spray INTRANASAL BID 11/11/20 01/05/22 07/11/21 History mcg spray,susp-NaCl 0.9% spray nasal fluticasone propionate 50 1 spray INTRANASAL BID 11/11/20 01/05/22 07/11/21 History mcg/actuation nasal spray,suspension (Flonase Allergy Relief) dexlansoprazole 60 mg 60 mg PO DAILY #90 cap 12/16/20 01/05/22 07/11/21 Rx capsule,biphase delayed release (Dexilant) levocetirizine 5 mg tablet (Xyzal) 5 mg PO BID #240 tab 12/16/20 01/05/22 07/11/21 Rx linaclotide 290 mcg capsule See Rx Instructions .ROUTE 03/07/21 01/05/22 07/11/21 Rx (Linzess) .COMPLEX #30 cap potassium chloride 10 mEq 20 meq PO DAILY #135 tab 08/03/21 01/05/22 Unknown Rx tablet,extended release (Klor-Con) ferrous gluconate 324 mg (38 mg 324 mg PO DAILY 90 Days #90 tab 08/16/21 01/05/22 Unknown Rx iron) tablet cholecalciferol (vitamin D3) 1,250 50,000 unit PO .weekly 90 Days #12 09/20/21 01/05/22 Unknown Rx mcg (50,000 unit) capsule cap cyclobenzaprine 10 mg tablet 10 mg PO TID 11/09/21 01/05/22 Unknown History aripiprazole 30 mg tablet (Abilify) 30 mg PO .bedtime #90 tab 11/16/21 01/05/22 Unknown Rx duloxetine 60 mg capsule,delayed 60 mg PO .morning #90 cap 11/16/21 01/05/22 Unknown Rx release (Cymbalta) hydroxyzine HCl 50 mg tablet 50 mg PO BID PRN #60 tab 11/16/21 01/05/22 Unknown Rx metoprolol tartrate 25 mg tablet See Rx Instructions .ROUTE 11/22/21 01/05/22 Unknown Rx .COMPLEX #180 tab magnesium oxide 400 mg PO Q6H #360 tab 11/30/21 01/05/22 Unknown Rx mirabegron 25 mg tablet,extended See Rx Instructions .ROUTE 11/30/21 01/05/22 Unknown Rx release 24 hr (Myrbetriq) .COMPLEX #90 tab zonisamide 100 mg capsule 500 mg PO DAILY #450 cap 11/30/21 01/05/22 Unknown Rx duloxetine 30 mg capsule,delayed 30 mg PO .morning #90 cap 12/05/21 01/05/22 Unknown Rx release (Cymbalta) rosuvastatin 5 mg tablet (Crestor) 5 mg PO DAILY #90 tab 12/09/21 01/05/22 Unknown Rx hydrochlorothiazide 25 mg tablet 37.5 mg PO DAILY #135 tab 12/27/21 01/05/22 Unknown Rx Allergies Allergy/AdvReac Type Severity Reaction Status Date / Time bee venom protein (honey bee) Allergy Unknown Unknown Verified 01/05/22 13:13 codeine AdvReac Unknown Unknown Verified 01/05/22 13:13 DOESN'T RECALL lamotrigine [From Lamictal] AdvReac Unknown RASH Verified 01/05/22 13:13 Penicillins AdvReac Unknown Unknown Verified 01/05/22 13:13 latex AdvReac RASH Verified 01/05/22 13:13 [facility] Anesthesia Medical History Abnormal mammogram Anemia Bipolar I disorder, most recent episode mixed, severe without psychotic features Borderline personality disorder Chronic idiopathic constipation Chronic migraine Chronic posttraumatic stress disorder Decreased glomerular filtration rate (GFR) Disc displacement, thoracic Fatigue Generalized anxiety disorder Long-term current use of opiate analgesic Lumbar back pain with radiculopathy affecting lower extremity Medication management Mixed hyperlipidemia Multiple sclerosis Obesity FLORY treated with BiPAP Pain management contract signed Panic disorder without agoraphobia Psychiatric care Spondylolisthesis of cervical region Spondylosis without myelopathy or radiculopathy, lumbar region Vitamin B12 deficiency anemia Vitamin D deficiency Surgical History History of partial hysterectomy History of removal of skin mole 11/19/19 [facility] Hx of cholecystectomy (~08/06/17) Hx of oophorectomy (~2010) LEFT Hx of tubal ligation Family History Mother Cancer UTERINE CANCER Lupus Family/Other Lupus AUNT Other Diabetes Hypertension Stroke Social History Smoking and tobacco status: former smoker Second hand smoke exposure: Yes Alcohol intake: former Adopted: No Caregiver/support person: No Lives independently: No Household members: none Housing: Apartment Marital status: Single Number of children: 3 Number of grandchildren: 1 Highest education level completed: Some College, No Degree service: No Current occupational status: disabled Pets and animals: Yes Pets & animals: dog(s) History of recent travel: No Leisure activites: other Leisure activities details: watch tv Sexually active: No Current gender identity: Female Elisabeth/Rastafari: None Financial difficulty paying for basics: Not Very Hard Female Reproductive History Para: 3 Spontaneous abortions: No Data Anesthesia Cardiac Studies: No Data to Display
[2022-01-05 14:03] VITALS: BMI 39.7
[2022-01-05 17:11] LABS: Anion Gap 15.2 (5-19); Blood Urea Nitrogen 24 mg/dL (6-20); Carbon Dioxide 25 mmol/L (22-29); Chloride 99 mmol/L (98-107); Glomerular Filtration Rate 76.6 mL/min (90-130); Glucose 91 mg/dL (65-115); Osmolality Calculated 286 mOsm/kg (285-295); Potassium 3.2 mmol/L (3.5-5.1); Sodium 136 mmol/L (136-145)
[2022-01-10] VITALS (29 sets, daily range): BP systolic 90–170; BP diastolic 52–119; PULSE 60–93; RESP 15–19; TEMP 36.4–37; O2SAT 91–97; BMI 39.6
--- NOTE | 2022-01-10 08:02 | PC.NURSE ---
Dr. Villatoro notified of patient's weight today of 238. Stated to not start anything yet and that he would come speak with patient.
[2022-01-10] MEDS: scopolamine 1.5 Patch 1 PATCH TRANSDERMA (08:41)
[2022-01-10] MEDS: heparin 5,000 unit/mL INJ 1 mL 5000 UNIT SUBCUT (08:41)
[2022-01-10] MEDS: sodium chloride 0.9% 1,000 ML 999 ML IV (08:54)
[2022-01-10] MEDS: pantoprazole 40 mg SDV IVP (08:55)
[2022-01-10] MEDS: acetaminophen 1,000 MG/100 ML PIGGYBACK 400 MG IV ×2 (08:55→20:20)
--- NOTE | 2022-01-10 08:55 | W.PM.OPSUD ---
Surgery/Procedure H&P Update DATE OF PROCEDURE: January 10, 2022 DATE H&P PERFORMED: 12/19/21 CHANGES TO PREVIOUS DOCUMENTATION: Patient dropped from 250 pounds to 238. PREOP DIAGNOSIS: Obesity and screening colonoscopy PRIMARY INDICATION FOR PROCEDURE: The same PLANNED PROCEDURE: Operation Date: 01/10/22 08:55 Proposed Procedures p Laparoscopic Gastric Sleeve w/ EGD [id number]/e66.01(Not Applicable) - Ayaan Villatoro MD
[2022-01-10 09:08] LABS: Basophils # 0.1 10^3/uL (0.0-0.1); Eosinophils # 0.1 10^3/uL (0.0-0.8); Eosinophils % 1.9 %; Hematocrit 42.3 % (37.0-47.0); Hemoglobin 14.4 g/dL (11.5-15.3); Lymphocytes # 2.1 10^3/uL (0.8-4.8); Lymphocytes % 31.9 %; Mean Corpuscular Hemoglobin 30.9 pg (28.0-34.0); Mean Corpuscular Volume 90.8 fl (81-99); Mean Platelet Volume 10.1 fL (7.4-10.4); Monocytes # 0.6 10^3/uL (0.2-0.9); Neutrophils # 3.75 10^3/uL (1.8-7.7); Neutrophils % 56.1 %; Nucleated Red Blood Cells % 0 %; Platelet Count 320 10^3/cmm (130-400); Red Blood Count 4.66 10^6/uL (4.1-5.3); Red Cell Distribution Width 12.6 % (12.1-15.1); White Blood Count 6.7 10^3/uL (4.0-10.0)
[2022-01-10] MEDS: clindamycin 900 MG/50 ML PREMIX 100 MG IV (09:30)
[2022-01-10 10:19] LABS: Calcium 8.9 mg/dL (8.5-10.5)
[2022-01-10 10:25] LABS: Parathyroid Hormone 109.9 pg/mL (15-65)
[2022-01-10 10:33] LABS: Alanine Aminotransferase 23 U/L (0-33); Alkaline Phosphatase 84 IU/L (35-105); Anion Gap 13.7 (5-19); Aspartate Amino Transferase 17 U/L (0-32); Blood Urea Nitrogen 15 mg/dL (6-20); Calcium 8.8 mg/dL (8.5-10.5); Carbon Dioxide 26 mmol/L (22-29); Chol HDL Ratio 3.78 mg/dL (0.0-4.40); Cholesterol 185 mg/dL (0-200); Ferritin 55 ng/mL (15-150); Globulin 2.9 g/dL (1.3-4.6); Glomerular Filtration Rate 66.5 mL/min (90-130); Glucose 109 mg/dL (65-115); HDL Cholesterol 49 mg/dL (60-100); Iron 74 ug/dL (37-145); LDL Cholesterol Calculated 109 mg/dL (50-129); LDL HDL Ratio 2.22 RATIO (0.00-3.22); Osmolality Calculated 289 mOsm/kg (285-295); Percent Saturation 26.3 % (20-50); Thyroid Stimulating Hormone 1.16 uIU/mL (0.27-4.20); Total Bilirubin 0.2 mg/dL (0.15-1.2); Total Iron Binding Capacity 281 mcg/dl; Total Protein 6.9 g/dL (6.6-8.7); Triglycerides 135 mg/dL (0-150); Unsaturated Iron Binding 207 ug/dL (112-347); Vitamin B12 419 pg/mL (232-1245)
[2022-01-10 10:35] LABS: Folate Level 7.3 ng/mL (4.8-37.3)
[2022-01-10 10:36] LABS: Chloride 103 mmol/L (98-107); Potassium 3.7 mmol/L (3.5-5.1); Sodium 139 mmol/L (136-145)
--- NOTE | 2022-01-10 11:44 | P.OP_ITS ---
Operative Report Date of procedure: January 10, 2022 Pre-op diagnosis: Preop Diagnosis Obesity and screening colonoscopy Procedure done: Laparoscopic vertical sleeve gastrectomy with intraoperative EGD Implants: Pieces of Surgicel along the staple line Specimens removed/disposition: Subtotal gastrectomy status post gastric sleeve sutures marked proximal Surgeon: Ayaan Villatoro MD Vice President Biostatistics: Silver Panchal Circulating nurse Nilda Green Anesthesia: General ([facility]) Estimated blood loss (mL): 25 IV fluids (mL): 2,200 Urine output: 200 Procedure: Patient was identified in the holding area, appropriate pharmacologic DVT prophylaxis was given and preoperative IV fluid hydration, patient was then taken to the operating room where the patient was placed in supine position, intubated by anesthesia prophylactic antibiotics were given per protocol, Time- out was done verifying the patient's name/date of /planned procedure and destination after the procedure, all were in agreement.SCDs confirmed to be functioning, and beta ant protocol was confirmed. A Rodgers catheter was inserted by the circulating nurse revealing clear urine. A foot board was applied to secure the patient while the patient is placed in reversed Trendelenburg, all pressure points were padded, and the patient was appropriately secured to the table, anesthesia was asked to rotate the table back and forth to verify that the patient is appropriately secured, and that was the case. The abdomen was prepped and draped under the usual sterile technique. A transverse incision was made with a 15 blade scalpel approximately 15 cm below the xiphoid process and 3 cm left of the midline. A 5 mm optical trocar port was placed under direct vision into the peritoneal cavity without initial evidence of injury to peritoneal structures upon entry. The peritoneal cavity was insufflated with carbon dioxide gas up to 15 mmHg pressure. A 45? angle laparoscopy was placed through the port into the peritoneal cavity there was no significant blood, fluid, or evidence of intra- abdominal injury under direct visualization, Longer trocars were then used; a 12 mm trocar port was placed in the right epigastric region and a fourth 5 mm trocar port was placed in the mid epigastric region more caudad than and medial to the previous port. A 5 mm trocar port was placed in the left lateral flank and additional 5 mm trocar was inserted midway between the left lateral flank trocar and the initial 5 mm trocar. There after the index 5 mm trocar was switched to a 12 mm trocar under direct visualization after extending the skin incision. I lifted the omentum up to make sure there were no injuries encountered from the initial trocar insertion, the underlying transverse colon and small bowel viscera were normal. A subxiphoid stab incision was made and dissection into the peritoneum with 5 mm obturator. A grasping laparoscopic clamp was inserted through here and clamped to the right jaison of the diaphragm to elevate the liver for the entirety of the case. All trocars inserted were long trocars due to the thick layer of subcutaneous tissue that the patient has.Patient was then placed in the reversed Trendelenburg. Following this, the greater curvature of the stomach was freed from the omentum using the ENSEAL device. This division included the short gastric vessels pro ximally. This dissection was carried from approximately 4 cm-6 cm proximal to the pylorus and extending all the way up to the angle of Hiss. During this process the posterior aspect of the stomach was mobilized from the underlying peritoneum and the posterior aspect of the stomach was well exposed. With the greater curvature of the stomach exposed from within 4-6 cm of the pylorus and extending to the angle of Hiss, which also included the posterior stomach, a 40 [place] standard template passed under direct vision down the esophagus, stomach, and into the first part of the duodenum by the anesthesia provider and under direct guidance and visualization by me, via the laparoscopy. Using the template 40 [place] aligned along the lesser curvature of the stomach and all the way to the first part of the Duodenum, the 40 [place] Bougie was used as a template the laparoscopic vertical gastric sleeve was performed starting from a point about 5 cm from the pylorus along the greater curvature. Using the [place] Laparoscopic HEMA linear cutting stapler with [employer] Endopath enforcement, a series of osiris were used to transect the stomach in a vertical fashion along the left side of the template. Through the entire division of the stomach using the staplers, the template was always checked to be in good place and well aligned to the lesser curvature while dividing the stomach. This was carried all the way to the angle of Hiss. [place] 60 mm Green loads were used for the distal third of the stomach and Gold loads were used for the more proximal part of the stomach and then blue loads with reinforcement. All staplers were reinforced by Endopath. The staple line along the remaining tubularized stomach was tested for leaks and bleeding under direct vision as the 40 [place] template was exchanged (and there was no evidence of blood on the tip of the template) by a standard diagnostic EGD via the mouth by my me after I scrubbed out, insufflation was achieved using CO2 gas and the staple line submerged under saline, meanwhile a clamp was applied distally onto the end of the tubularized stomach to allow insufflation test for leak. There was no evidence of leak or bleeding.There was adequate hemostasis along the staple line.EGD was taken out at this point after deflation of the tubularized stomach. I scrubbed the back in. The transected partial stomach, which included the greater curvature, was removed from the peritoneum through the first 12 mm trocar site, and was sent for permanent pathology. Prior to closure of the fascia. A final look laparoscopy identified no injuries or bleeding. Except some oozing along the staple line were a [id number] stitch was placed with omental reinforcement towards the mid to distal third of the gastric conduit. And 5 mm clip ap plication was placed onto the staple line as well for hemostasis followed by 3 pieces of Surgicel along the staple line distal to midportion of the conduit Bilateral TAP (transversus abdominous plain peripheral nerve block) block using Exparel 20 mL Exparel,40 ml Normal saline,20 ml bupivacaine 0.25% 30 mL on each side injected, 20 mL injected the port sites. An interrupted #1 PDS suture on a granny needle suture passer was used to close the right epigastric and the other 12 mm trocar left of the midline fascial defects under direct visualization. The other trocars were removed under direct vision and no evidence of bleeding was identified. The pneumoperitoneum was decompressed. All skin incisions were irrigated with saline, then closed with osiris, followed by application of sterile dressings. The patient was extubated and taken to the recovery room with normal vital signs. Rodgers catheter was maintained All counts of instruments, sponges and needles were completed at the end of the procedure I was present for the whole entire procedure
[2022-01-10] MEDS: ondansetron 2 mg/ML SDV 2 mL 4 MG IVP ×2 (12:39→12:49)
[2022-01-10] MEDS: labetalol 5 mg/mL SDV 20mL 100 MG (13:06)
[2022-01-10] MEDS: fentaNYL 50 mcg/mL INJ 2mL IVP (13:22)
--- NOTE | 2022-01-10 13:53 | ANE.PACU2 ---
Inpatient post-anesthesia follow up: Airway intact: Yes Vital signs: Temperature 97.6 F Pulse Rate 62 Respiratory Rate 16 Blood Pressure 104/84 Pulse Oximetry 95 Oxygen Delivery Me thod Nasal Cannula Oxygen Flow Rate 2 Fraction of Inspir ed Oxygen Hydration adequate: Yes Nausea and vomiting: No Pain level: 2 Mental status: Baseline
[2022-01-10] MEDS: morphine 4 mg/mL SDV 1 mL 2 MG IVP (14:55)
[2022-01-10] MEDS: sodium chloride 0.9% 1,000 ML 125 ML IV (17:07)
[2022-01-10 17:40] LABS: Glucose Point of Care 155 mg/dL (70-110)
[2022-01-11] VITALS (12 sets, daily range): BP systolic 105–164; BP diastolic 69–92; PULSE 84–95; RESP 12–18; TEMP 36.3–37.1; O2SAT 92–97
[2022-01-11] MEDS: sodium chloride 0.9% 1,000 ML 125 ML IV ×3 (01:54→16:41)
[2022-01-11] MEDS: morphine 4 mg/mL SDV 1 mL 2 MG IVP ×3 (02:00→14:07)
[2022-01-11] MEDS: ondansetron 2 mg/ML SDV 2 mL 4 MG IVP ×3 (02:07→14:07)
[2022-01-11 02:28] LABS: Hematocrit 38.8 % (37.0-47.0); Hemoglobin 12.8 g/dL (11.5-15.3)
[2022-01-11 02:53] LABS: Anion Gap 14.1 (5-19); Blood Urea Nitrogen 12 mg/dL (6-20); Carbon Dioxide 22 mmol/L (22-29); Chloride 107 mmol/L (98-107); Glomerular Filtration Rate 88.9 mL/min (90-130); Glucose 127 mg/dL (65-115); Osmolality Calculated 289 mOsm/kg (285-295); Potassium 4.1 mmol/L (3.5-5.1); Sodium 139 mmol/L (136-145)
[2022-01-11] MEDS: acetaminophen 1,000 MG/100 ML PIGGYBACK 400 MG IV ×2 (05:36→21:02)
--- NOTE | 2022-01-11 07:44 | PM.PN ---
Subjective Subjective: Patient overall feels well and her pain is under control. Adequate urine output and Rodgers catheter was taken out. Labs look appropriate. Continue to have stable vital signs. Medications: Reviewed: Yes Vitals/I&O/Wt Last Vital Signs Temp 97.7 F 01/11/22 05:35 Pulse 86 01/11/22 05:35 Resp 18 01/11/22 05:35 BP 119/72 01/11/22 05:35 Pulse Ox 96 01/11/22 05:35 01/10/22 01/11/22 01/11/22 22:59 06:59 14:59 Intake Total 1100 / 2450 1100 / 3550 Output Total 100 / 325 900 / 1225 Balance 1000 / 2125 200 / 2325 Weight last 48 hrs Weight 238 lb Physical Exam Narrative: Patient is conscious alert oriented X3 No apparent distress BMI 39.6 Head and neck examination PERRLA no masses no cervical lymphadenopathy no jaundice Cardiac examination audible S1-S2 no murmurs no gallops no arrhythmias Chest is clear bilateral,abscence of Rhonchi or wheezes,no surgical emphysema Abdomen nontender nondistended soft no organomegaly guarding or rigidity/no signs of peritonitis. Dressing in place without complication Extremities no cyanosis no clubbing no edema Urinary Catheter Management: Rodgers: Cath Placed During This Visit: yes, but has since been removed by the nurse Reason for Continuing Indwelling Catheter: Required Immobilization for Trauma or Surgery or Anesthesia Urinary Catheter Date of Insertion: 01/10/22 Urinary Catheter Time of Insertion: 08:25 Date Urinary Catheter Removed: 01/11/22 Time Urinary Catheter Discontinued: 05:37 Data : 01/11/22 02:10 01/11/22 02:10 A&P Assessment and plan (1) S/P laparoscopic sleeve gastrectomy: Assessment 47-year-old female patient status post laparoscopic vertical sleeve gastrectomy 01/10/2022 Plan Encourage ambulation Incentive spirometer every hour DC Rodgers catheter We will follow an upper GI study once this is cleared we will start the patient on post bariatric surgery diet phase I. And then we will switch the patient to oral pain medications Assurance and education All questions have been answered and all concerns have been addressed to patient's satisfaction. Status: Acute Attestations Medical Necessity Statement*: Patient required inpatient hospitalization for perioperative care. Coding Level of Care Code Acute Face And Fill Packer for Chg Fwd Diagnoses S/P laparoscopic sleeve gastrectomy Z98.84
--- NOTE | 2022-01-11 08:00 | FL_ITS ---
WS: [id number] Upper GI series with Gastrografin, 01/11/2022 Clinical Data: Status Post Gastric Sleeve Comparison: None. Fluoroscopy time: .7 minutes. Findings: The patient has had gastric sleeve surgery. The patient swallowed the Gastrografin, land it flowed no rmally through the esophagus. No hiatal hernia, reflux, polyp, erosion or ulceration of the esophagus was seen. The Gastrografin filled the stomach. No obstruction or extravasation was noted. There were numerous clips adjacent to the fundus and body of the stomach from the gastric sleeve surgery. Gastr ografin proceeded into the duodenum via the duodenal bulb. No ulcer or obstruction could be seen. The re are clips in the right upper quadrant from a cholecystectomy. FL/FL upper GI series [id number] Impression: Satisfactory gastric sleeve surgery.
[2022-01-11] MEDS: diatrizoate meglumine 30 mL Sol PO (08:47)
--- NOTE | 2022-01-11 10:35 | PC.CHAP ---
Pastoral Care Encounter/Spiritual Assessment Type of Contact [] Declined multiple tube winding machine operator visit [] Patient/Family/Request visit [] Outpatient visit [] Follow-up visit [] Physician referral [] Code/Alert [x] Routine visit [] Staff referral [] Actively dying [] Patient sleeping [] Family support [] [] Out of room [] Palliative care [] [] Receiving care in room [] Pre-surgical visit [] Trauma [] Long length of stay [] ICU visit [] Other: Relational/Emotional Strength [x] Patient feels connected with others/family/visitors/staff [] Distress [] Loneliness/isolation [] Abandonment Spirituality of Patient []x Person of Elisabeth [] Attends Restorationism of their Elisabeth [x] Believes in Prayer [] Reads Bible or Anglican materials [] There are Spiritual issues to be addressed Vascular Nurse Interventions [x] Prayer [x] Active listening [x] Non-anxious presence [x] Spiritual/emotional support [] Crisis/trauma care [] Spiritual counseling [] Bereavement support [] Provided bereavement packet [] Provided Bible/devotional materials [] Provided toy/stuffed animal, coloring book to patient or family member [] Provided Communion [] Anointing/[place] [] Salvation [x] Completed spiritual assessment [] Other: Impact on Illness or Injury [] Angry [] Fearful [] Anxious [] Often cries [] Exhaustion [] Unable to work [] Unable to attend confucianist [] Unable to walk/stand [] Unable to read [] Unable to drive [] Unable to eat/drink [] Unable to sleep [] Unable to be with family [] Patient intubated [] Other: Summary Time spent with patient 10 min
[2022-01-11] MEDS: HYDROcodone-acetaminophen 5-325 mg Tablet 1 TAB PO ×2 (10:59→17:25)
[2022-01-11] MEDS: sodium chloride 0.9% 500 ML 999 ML IV (16:40)
[2022-01-11] MEDS: famotidine 20 mg/2 mL INJ IVP (16:40)
--- NOTE | 2022-01-11 18:37 | PC.NURSE ---
PATIENT HAS WALKED MULTIPLE TIMES TODAY. PATIENT REQUIRED IV PAIN MEDICATION ONE TIME. TOLERATING ORAL INTAKE AND PO MEDICATIONS AT THIS TIME. PATIENT HAS HAD MINIMAL PO INTAKE TODAY. 500ML OF URINE OUTPUT. 500ML BOLUS GIVEN. PATIENT CURRENTLY RESTING IN BED AT THIS TIME.
[2022-01-11] MEDS: heparin 5,000 unit/mL INJ 1 mL 5000 UNIT SUBCUT (22:48)
[2022-01-12] MEDS: ondansetron 2 mg/ML SDV 2 mL 4 MG IVP (01:23)
[2022-01-12] MEDS: sodium chloride 0.9% 1,000 ML 125 ML IV (01:53)
[2022-01-12 02:15] LABS: Hematocrit 35.1 % (37.0-47.0); Hemoglobin 11.5 g/dL (11.5-15.3)
[2022-01-12 02:35] LABS: Anion Gap 12.8 (5-19); Blood Urea Nitrogen 8 mg/dL (6-20); Calcium 8.9 mg/dL (8.5-10.5); Carbon Dioxide 21 mmol/L (22-29); Chloride 108 mmol/L (98-107); Creatinine Clr Calc Pharmacy 138.5532; Glomerular Filtration Rate 106.3 mL/min (90-130); Glucose 126 mg/dL (65-115); Osmolality Calculated 286 mOsm/kg (285-295); Potassium 3.8 mmol/L (3.5-5.1); Sodium 138 mmol/L (136-145)
[2022-01-12 05:25] VITALS: BP 133/79; PULSE 98; RESP 18; TEMP 37.3; O2SAT 94
--- NOTE | 2022-01-12 05:38 | P.DS_ITS ---
Discharge Providers Date of Admission: 01/10/22 16:14 Date of Discharge: January 12, 2022 Attending Provider at Admission: Ayaan Villatoro MD Attending Provider at Discharge: Ayaan Villatoro MD Primary Care Provider: VICTORINO Inman Diagnoses at Discharge Discharge Diagnosis (1) S/P laparoscopic sleeve gastrectomy: Status: Acute Reason for Visit Reason for Visit: obesity Brief History: 03/16/2021 This is a pleasant 46 years old female patient with a current weight of 231 pounds and BMI of 38.4 with class III obesity.Patient has been struggling with weight and has tried different modalities without obvious success, patient comes today showing interest in Bariatric surgery as a sustained option for obesity management.? Patient had tried phentermine for the last 4-month Associated medical comorbidities in the form of chronic idiopathic constipation, nicotine dependence, mixed hyperlipidemia, decreased glomerular filtration rate, vitamin D deficiency, fatigue, anemia, bipolar 1 disorder, obesity related obstructive sleep apnea on BiPAP machine, hypertension, leg swelling, disc disp lacement thoracic, multiple sclerosis, thoracic radiculopathy due to degenerative joint disease of spine, vitamin B12 deficiency anemia, lumbar back pain with radiculopathy affecting lower extremity, long-term current use of opioid analgesic, pain management contract signed, spondylosis, spondylolisthesis of cervical region, chronic posttraumatic stress disorder, borderline personality disorder, generalized anxiety disorder, other obsessive- compulsive disorder and panic disorder without agoraphobia. Patient is referred to my practice for further evaluation for potential obesity management including weight loss surgery. 05/25/2021 Patient comes today as a follow-up and she did not lose much weight. She did gain some has been on phentermine and she is trying to walk. Unfortunately she continues to smoke. Current weight of 233 pounds and a BMI of 38.7 07/27/2021 Patient comes today as she did undergo an EGD was found to have gastritis and GERD.? Colonoscopy showed colon polyp with hyperplastic changes and diverticulosis.? Continues to show interest in weight loss surgery. Interim history 08/25/2021 Patient comes today for follow-up regarding her obesity status and she reports that she stopped smoking for the past 2 months.? She is very enthusiastic with regard to weight loss surgery and she had her psych evaluation but the final report is still pending.? Also nutrition consultation is not established yet.? She is down to 234 pounds with a current BMI of 38.9, she continues to be on a lower calorie diet. ? 09/21/2021 Comes today to the bariatric surgery office and continues to show interest in weight loss surgery. Pending psychology clearance for surgery been on low calorie diet but she reports to me today that she has issues with her kidneys and has been following up with Dr. Carl for medical management, she continues stop smoking probably 3 months now. Overall she does show her enthusiasm for bariatric surgery for a sustainable option for her weight management 11/02/2021 Patient comes today and her current weight to 40 pounds and a BMI of 40.? Patient is following with Dr. Carl with regard to her renal functions.? Patient has been cleared by psychology service and deemed appropriate for bariatric surgery intervention.? Awaiting nephrology clearance and coordination with Dr. Carl will continue accordingly. 12/07/2021 Based on the nephrology team and Dr. Carl's input.? There is no contraindication for surgery from renal standpoint.? Recommendation to have the patient stays well-hydrated around procedure. Modesta Broussard MA routed this conversation to Dr. Ruperto Carl on 11/02/2021 10:05 AM Patient comes today and continues to show interest in surgery and she is attending the seminar soon in preparation for her laparoscopic vertical sleeve gastrectomy, With a current weight of 245 pounds and a BMI of 41 12/19/2021 Patient comes today for her preop visit after attending the seminar.? And she fulfilled all the appropriate indications for weight loss surgery with particular focus on laparoscopic vertical sleeve gastrectomy.? Patient currently is not on any appetizer suppressants.? Based on medical necessity patient would be appropriate candidate for laparoscopic vertical sleeve gastrectomy.,? Today's weight 242 pounds and a BMI of 40.2. Hospital Course Hospital Course This is a pleasant 47 years old female patient undergone uneventful laparoscopic vertical sleeve gastrectomy for obesity and associated medical comorbidities. Patient maintained of stable vital signs, adequate urine output and pain under control. Patient maintained to have appropriate lab values. Patient tolerated p.o. intake without complication. Patient continues to be independently a mbulatory. And work on her incentive spirometer hourly Physical Exam Narrative: Patient is conscious alert oriented X3 No apparent distress BMI 39.6 Head and neck examination PERRLA no masses no cervical lymphadenopathy no jaundice Cardiac examination audible S1-S2 no murmurs no gallops no arrhythmias Chest is clear bilateral,abscence of? Rhonchi or wheezes,no surgical emphysema Abdomen nontender non distended soft no organomegaly guarding or rigidity/no signs of peritonitis.Skin osiris in place. Extremities no cyanosis no clubbing no edema Urinary Catheter Management: Rodgers: Cath Placed During This Visit: yes, but has since been removed by the nurse Reason for Continuing Indwelling Catheter: Required Immobilization for Trauma or Surgery or Anesthesia Urinary Catheter Date of Insertion: 01/10/22 Urinary Catheter Time of Insertion: 08:25 Date Urinary Catheter Removed: 01/11/22 Time Urinary Catheter Discontinued: 05:37 Discharge Data Studies Completed and Pending Completed Studies During Hospitalization Category Date Time Status FL upper GI series [id number] Routine Exams 01/11/22 08:00 Completed Pending at discharge Category Date Time Status ES surgery / GI images Routine Exams 01/10/22 08:24 Taken Basic Metabolic Panel AM LABS Lab 01/13/22 04:00 Ordered Hemoglobin and Hematocrit AM LABS Lab 01/13/22 04:00 Ordered Vitamin B1(Thiamin) Plas/Ser Routine Lab 01/10/22 09:36 Received Vitamin D 1,25 Dihydroxy Routine Lab 01/10/22 09:36 Received Zinc Level, Serum or Plasma Routine Lab 01/10/22 08:48 Received Pathology: Surgical [PTH] Routine Pth 01/10/22 11:58 Received Radiology Impressions Upper GI Series 01/11/22 08:00 Impression: The patient has had gastric sleeve surgery. The patient swallowed the Gastrografin, land it flowed normally through the esophagus. No hiatal hernia, reflux, polyp, erosion or ulceration of the esophagus was seen. The Gastrografin filled the stomach. No obstruction or extravasation was noted. There were numerous clips adjacent to the fundus and body of the stomach from the gastric sleeve surgery. Gastrografin proceeded into the duodenum via the duodenal bulb. No ulcer or obstruction could be seen. There are clips in the right upper quadrant from a cholecystectomy. Impression: ? Satisfactory gastric sleeve surgery. ? Satisfactory gastric sleeve surgery. Laboratory Results WBC 6.7 10^3/uL (4.0-10.0) 01/10/22 08:48 RBC 4.66 10^6/uL (4.1-5.3) 01/10/22 08:48 Hgb 11.5 g/dL (11.5-15.3) 01/12/22 02:08 Hct 35.1 % (37.0-47.0) L 01/12/22 02:08 MCV 90.8 fl (81-99) 01/10/22 08:48 MCH 30.9 pg (28.0-34.0) 01/10/22 08:48 MCHC 34.0 g/dL (30.0-36.0) 01/10/22 08:48 RDW 12.6 % (12.1-15.1) 01/10/22 08:48 Plt Count 320 10^3/cmm (130-400) 01/10/22 08:48 MPV 10.1 fL (7.4-10.4) 01/10/22 08:48 Neut % (Auto) 56.1 % 01/10/22 08:48 Lymph % (Auto) 31.9 % 01/10/22 08:48 [place] % (Auto) 9.0 % 01/10/22 08:48 Eos % (Auto) 1.9 % 01/10/22 08:48 Baso % (Auto) 1.0 % 01/10/22 08:48 Neut # (Auto) 3.75 10^3/uL (1.8-7.7) 01/10/22 08:48 Lymph # (Auto) 2.1 10^3/uL (0.8-4.8) 01/10/22 08:48 [place] # (Auto) 0.6 10^3/uL (0.2-0.9) 01/10/22 08:48 Eos # (Auto) 0.1 10^3/uL (0.0-0.8) 01/10/22 08:48 Baso # (Auto) 0.1 10^3/uL (0.0-0.1) 01/10/22 08:48 Nucleated RBC % (auto) 0 % 01/10/22 08:48 Nucleated RBCs # 0.0 /100WBC 01/10/22 08:48 Sodium 138 mmol/L (136-145) 01/12/22 02:08 Potassium 3.8 mmol/L (3.5-5.1) 01/12/22 02:08 Chloride 108 mmol/L (98-107) H 01/12/22 02:08 Carbon Dioxide 21 mmol/L (22-29) L 01/12/22 02:08 Anion Gap 12.8 (5-19) 01/12/22 02:08 BUN 8 mg/dL (6-20) 01/12/22 02:08 Creatinine 0.6 mg/dL (0.5-0.9) 01/12/22 02:08 GFR Calculation 106.3 mL/min (90-130) 01/12/22 02:08 Glucose 126 mg/dL (65-115) H 01/12/22 02:08 POC Glucose 155 mg/dL (70-110) H 01/10/22 17:37 Calculated Osmolality 286 mOsm/kg (285-295) 01/12/22 02:08 Calcium 8.9 mg/dL (8.5-10.5) 01/12/22 02:08 Magnesium 2.0 mg/dL (1.7-2.3) 01/10/22 09:36 Iron 74 ug/dL (37-145) 01/10/22 09:36 TIBC 281 mcg/dl 01/10/22 09:36 % Saturation 26.3 % (20-50) 01/10/22 09:36 Unsat Iron Binding 207 ug/dL (112-347) 01/10/22 09:36 Ferritin 55 ng/mL (15-150) 01/10/22 09:36 Total Bilirubin 0.2 mg/dL (0.15-1.2) 01/10/22 09:36 AST 17 U/L (0-32) 01/10/22 09:36 ALT 23 U/L (0-33) 01/10/22 09:36 Alkaline Phosphatase 84 IU/L (35-105) 01/10/22 09:36 Total Protein 6.9 g/dL (6.6-8.7) 01/10/22 09:36 Albumin 4.0 g/dL (3.5-5.2) 01/10/22 09:36 Globulin 2.9 g/dL (1.3-4.6) 01/10/22 09:36 Triglycerides 135 mg/dL (0-150) 01/10/22 09:36 Cholesterol 185 mg/dL (0-200) 01/10/22 09:36 LDL Cholesterol, Calc 109 mg/dL (50-129) 01/10/22 09:36 HDL Cholesterol 49 mg/dL (60-100) L 01/10/22 09:36 LDL/HDL Ratio 2.22 RATIO (0.00-3.22) 01/10/22 09:36 Cholesterol/HDL Ratio 3.78 mg/dL (0.0-4.40) 01/10/22 09:36 Vitamin B1 Cancelled 01/10/22 08:48 Vitamin B12 419 pg/mL (232-1245) 01/10/22 09:36 25-OH Vitamin D Total Cancelled 01/10/22 08:48 1,25 Dihydroxy Vit D2 Cancelled 01/10/22 08:48 1,25 Dihydroxy Vit D3 Cancelled 01/10/22 08:48 Folate 7.3 ng/mL (4.8-37.3) 01/10/22 09:36 TSH 1.16 uIU/mL (0.27-4.20) 01/10/22 09:36 PTH Intact 109.9 pg/mL (15-65) H 01/10/22 09:36 Calcium (PTH Intact) 8.9 mg/dL (8.5-10.5) 01/10/22 09:36 Procedures Performed Procedure: Patient was identified in the holding area, appropriate pharmacologic DVT prophylaxis was given and preoperative IV fluid hydration, patient was then taken to the operating room where the patient was placed in supine position, intubated by anesthesia prophylactic antibiotics were given per protocol, Time- out was done verifying the patient's name/date of /planned procedure and destination after the procedure, all were in agreement.SCDs confirmed to be functioning, and beta ant protocol was confirmed. A Rodgers catheter was inserted by the circulating nurse revealing clear urine. A foot board was applied to secure the patient while the patient is placed in reversed Trendelenburg, all pressure points were padded, and the patient was appropriately secured to the table, anesthesia was asked to rotate the table back and forth to verify that the patient is appropriately secured, and that was the case. The abdomen was prepped and draped under the usual sterile technique.? A transverse incision was made with a 15 blade scalpel approximately 15 cm below the xiphoid process and 3 cm left of the midline. A 5 mm optical trocar port was placed under direct vision into the peritoneal cavity without initial evidence of injury to peritoneal structures upon entry. The peritoneal cavity was insufflated with carbon dioxide gas up to 15 mmHg pressure. A 45? angle laparoscopy was placed through the port into the peritoneal cavity there was no significant blood, fluid, or evidence of intra- abdominal injury under direct visualization, Longer trocars were then used; a 12 mm trocar port was placed in the right epigastric region and a fourth 5 mm trocar port was placed in the mid epigastric region more caudad than and medial to the previous port. A 5 mm trocar port was placed in the left lateral flank and additional 5 mm trocar was inserted midway between the left lateral flank trocar and the initial 5 mm trocar.? There after the index 5 mm trocar was switched to a 12 mm trocar under direct visualization after extending the skin incision. I lifted the omentum up to make sure there were no injuries encountered from the initial trocar insertion, the underlying transverse colon and small bowel viscera were normal. A subxiphoid stab incision was made and dissection into the peritoneum with 5 mm obturator.? A grasping laparoscopic clamp was inserted through here and clamped to the right jaison of the diaphragm to elevate the liver for the entirety of the case.? All trocars inserted were long? trocars due to the thick layer of subcutaneous tissue that the patient has.Patient was then placed in the reversed Trendelenburg. Following this, the greater curvature of the stomach was freed from the omentum using the ENSEAL device.? This division included the short gastric vessels proximally.? This dissection was carried from approximately 4 cm-6 cm proximal to the pylorus and extending all the way up to the angle of Hiss. During this process the posterior aspect of the stomach was mobilized from the underlying peritoneum and the posterior aspect of the stomach was well exposed. With the greater curvature of the stomach exposed from within 4-6 cm of the pylorus and extending to the angle of Hiss, which also included the posterior stomach, a 40 Filipino standard template passed under direct vision down the esophagus, stomach, and into the first part of the duodenum by the anesthesia provider and under direct guidance and visualization by me, via the laparoscopy. Using the template 40 Filipino aligned along the lesser curvature of the stomach and all the way to the first part of the Duodenum, the 40 Filipino Bougie was used as a template the laparoscopic vertical gastric sleeve was performed starting from a point about 5 cm from the pylorus along the greater curvature. Using the [place]eno Laparoscopic HEMA linear cutting stapler with SHADOW Endopath enforcement, a series of osiris were used to transect the stomach in a vertical fashion along the left side of the template. Through the entire division of the stomach using the staplers, the template was always checked to be in good place and well aligned to the lesser curvature while dividing the stomach. This was carried all the way to the angle of [facility]. Chap[place] 60 mm Green loads were used for the distal third of the stomach and Gold loads were used for the more proximal part of the stomach and then blue loads with reinforcement. All staplers were reinforced by Endopath. The staple line along the remaining tubularized stomach was tested for leaks and bleeding under direct vision as the 40 Filipino template was exchanged (and there was no evidence of blood on the tip of the template) by a standard diagnostic EGD via the mouth by my me after I scrubbed out, insufflation was achieved using CO2 gas and the staple line submerged under saline, meanwhile a clamp was applied distally onto the end of the tubularized stomach to allow insufflation test for leak. There was no evidence of leak or bleeding.There was adequate hemostasis along the staple line.EGD was taken out at this point after deflation of the tubularized stomach. I scrubbed the back in. The transected partial stomach, which included the greater curvature, was removed from the peritoneum through the first 12 mm trocar site, and was sent for permanent pathology. Prior to closure of the fascia.? A final look laparoscopy identified no injuries or bleeding.? Except some oozing along the staple line were a [id number] stitch was placed with omental reinforcement towards the mid to distal third of the gastric conduit.? And 5 mm clip application was placed onto the staple line as well for hemostasis followed by 3 pieces of Surgicel along the staple line distal to midportion of the conduit Bilateral TAP (transversus abdominous plain peripheral nerve block) block using Exparel 20 mL Exparel,40 ml Normal saline,20 ml bupivacaine 0.25% 30 mL on each side injected, 20 mL injected the port sites. An interrupted #1 PDS suture on a granny needle suture passer was used to close the right epigastric and the other 12 mm trocar left of the midline fascial defects under direct visualization. The other trocars were removed under direct vision and no evidence of bleeding was identified. The pneumoperitoneum was decompressed. All skin incisions were irrigated with saline, then closed with osiris, followed by application of sterile dressings. The patient was extubated and taken to the recovery room with normal vital signs. Rodgers catheter was maintained All counts of instruments, sponges and needles were completed at the end of the procedure I was present for the whole entire procedure Vitals Last Vital Signs Temp 99.1 F 01/12/22 05:25 Pulse 98 01/12/22 05:25 Resp 18 01/12/22 05:25 BP 133/79 01/12/22 05:25 Pulse Ox 94 01/12/22 05:25 Discharge Plan Discharge Patient Disposition: Home Condition: Stable Prescriptions: New hydrocodone-acetaminophen 5-325 mg tablet 1 tab PO Q6H PRN (Reason: pain) Qty: 28 0RF Transderm-Scop 1 mg over 3 days patch 3 day 1 patch transdermal Q72H PRN (Reason: Nausea) Qty: 4 1RF Zofran 4 mg tablet 4 mg PO TID PRN (Reason: nausea and vomiting) Qty: 30 2RF Continued fluticasone propionate [Flonase Allergy Relief] 50 mcg/actuation spray,suspension 1 spray intranasal BID 0RF Rx Instructions: administer into each nostril [id number] 137 mcg-50 mcg- 0.9 % kit,spray suspension and spray 1 spray intranasal BID 0RF Rx Instructions: administer into each nostril cyclobenzaprine 10 mg tablet 10 mg PO TID 0RF Linzess 290 mcg capsule See Rx Instructions .ROUTE .COMPLEX Qty: 30 2RF Dose Instruction: TAKE 1 CAPSULE BY MOUTH EVERY DAY IN THE MORNING Rx Instructions: TAKE 1 CAPSULE BY MOUTH EVERY DAY IN THE MORNING duloxetine [Cymbalta] 30 mg capsule,delayed release(DR/EC) 30 mg PO .morning Qty: 90 2RF Rx Instructions: Take one capsule in morning Dexilant 60 mg capsule,biphase delayed releas 60 mg PO DAILY Qty: 90 2RF levocetirizine [Xyzal] 5 mg tablet 5 mg PO BID Qty: 240 1RF potassium chloride [Klor-Con 10] 10 mEq tablet extended release 20 meq PO DAILY Qty: 135 3RF Rx Instructions: 08/03/21 Dose change by [facility] ferrous gluconate 324 mg (38 mg iron) tablet 324 mg PO DAILY 90 Days Qty: 90 1RF cholecalciferol (vitamin D3) 1,250 mcg (50,000 unit) capsule 50,000 unit PO .weekly 90 Days Qty: 12 1RF aripiprazole [Abilify] 30 mg tablet 30 mg PO .bedtime Qty: 90 2RF Rx Instructions: Take one tablet at bedtime duloxetine [Cymbalta] 60 mg capsule,delayed release(DR/EC) 60 mg PO .morning Qty: 90 2RF Rx Instructions: Take one capsule by mouth every morning hydroxyzine HCl 50 mg tablet 50 mg PO BID PRN (Reason: anxiety) Qty: 60 6RF Rx Instructions: Take one tablet twice per day as needed for anxiety metoprolol tartrate 25 mg tablet See Rx Instructions .ROUTE .COMPLEX Qty: 180 1RF Dose Instruction: TAKE 1 TABLET BY MOUTH TWICE A DAY Rx Instructions: TAKE 1 TABLET BY MOUTH TWICE A DAY Myrbetriq 25 mg tablet extended release 24 hr See Rx Instructions .ROUTE .COMPLEX Qty: 90 3RF Dose Instruction: TAKE 1 TABLET BY MOUTH EVERY DAY (24 HOURS) Rx Instructions: TAKE 1 TABLET BY MOUTH EVERY DAY (24 HOURS) zonisamide 100 mg capsule 500 mg PO DAILY Qty: 450 1RF Rx Instructions: Must have appointment for future refills magnesium oxide 400 mg magnesium tablet 400 mg PO Q6H Qty: 360 0RF rosuvastatin [Crestor] 5 mg tablet 5 mg PO DAILY Qty: 90 3RF hydrochlorothiazide 25 mg tablet 37.5 mg PO DAILY Qty: 135 1RF Discharge Orders: Discharge Order (Routine); Ordered 01/12/22 Ordered By: Ayaan Villatoro Referrals: Ayaan Villatoro MD [Physician] - 01/16/22 3:30 pm () Discharge Diet: As Directed Discharge Activity: Limit activity as instructed Patient Instructions: Opioid Safety Activity Restrictions/Additional Instructions: 1. Patient can shower after 48 hours from surgery. Do not soak in bathtub, swimming pool or hot tub for 4 weeks after surgery. 2. Leave incisions open to air, do not apply triple antibiotic ointment or medications on the incisions. 3. Up and walking as tolerated Activity 4. Do not lift more than 5 pounds first 2 weeks after surgery and not more than 25 pounds 6 to 8 weeks after surgery. Driving 5. Do not operate heavy machinery or drive while using pain medications Diet Stage 1 When do I start this stage? The day after your surgery (Day 1). You will get to start this stage after you pass the upper GI study and/or methylene blue test. How long will I be on this stage? Day 1 thru day 2 or until you are discharged from the hospital. Goals: ? Drink 4 to 6 ounces of fluid per hour. ? Aim for a total of 64 ounces of fluid daily. Add the following food/beverages to your diet: Clear broth or bouillon 100% no sugar added apple, cranberry, or grape juice. Dilute with 1 part juice and 1 part water. No citrus justice (i.e. organe juice, grapefruit juice, etc.) Limit to 8 ounces per or less per day. Tea (do not add milk) Coffee (do not add milk or creamer) Sugar-free gelatin Sugar-free popsicles Sugar-free flavored beverages (Crystal Light?, Sugar-Free Pierre-Aid?, Propel?, PowerAde Zero?, Vitamin Water 10?, Fruit?0?, Sob? Lean?, etc.) Artificial sweetener of your choice Stage 2 When do I start this stage? Day 3 (or once you are discharged from the hospital) How long will I be on this stage? Day 3 thru Day 13 Goals: ? Drink 4 to 6 ounces of fluid per hour. ? Aim for a total of 64 ounces of fluid daily. ? Aim to meet protein goals with liquid protein supplements Add the following food/beverages to your diet: Protein supplements (thin, water-based supplement may be easier to digest at first while milk-based supplements may feel ``heavy?? and uncomfortable at first) Milk: 1%, skim, light soy milk, or lactose-free milk Pain control Patient was given a prescription for hydrocodone ,avoid NSAIDs Nausea Nausea is common after surgery, take nausea medications as needed and stay on a liquid bland diet until nausea resolves. Breathing Patient was encouraged and was given incentive spirometer to use at home 10 times an hour while awake Call the office at [phone] during office hours or go the Emergency Room after hours for - ?Fever to 100.4 or greater ?Shaking chills ?Pain that increases over time ?Redness, warmth, or pus draining from incision sites ?Persistent nausea or inability to take in liquids Discharge Attestations Time Spent in Discharge Care*: greater than 30 min Specific Discharge Activities: educating patient and educating and/or supporting family/caregiver Status at Discharge: Cognitive status at discharge: cognitively intact , Behavioral status at discharge: cooperative , Functional status at discharge: independent ambulation , Overall status at discharge: patient is progressing back to baseline Quality Metrics Clinical Quality Measures [ No reported AMI, CVA or VTE this stay] Coding Level of Care Code Acute Chg FW DC note Diagnoses S/P laparoscopic sleeve gastrectomy Z98.84
[2022-01-12] MEDS: heparin 5,000 unit/mL INJ 1 mL 5000 UNIT SUBCUT (06:13)
--- NOTE | 2022-01-12 06:46 | PC.NURSE ---
Pt is ambulating in hallway at this time, tolerating well.
[2022-01-12 07:33] VITALS: BP 147/90; PULSE 102; RESP 18; TEMP 36.6; O2SAT 97
[2022-01-12] MEDS: sodium chloride 0.9% 1,000 ML 50 ML IV (08:05)
[2022-01-12] MEDS: famotidine 20 mg/2 mL INJ IVP (09:22)
[2022-01-12 11:47] VITALS: BP 105/74; PULSE 68; RESP 17; TEMP 37.1; O2SAT 98
[2022-01-12 14:43] VITALS: BP 120/66; PULSE 84; RESP 18; TEMP 36.7; O2SAT 97
--- NOTE | 2022-01-12 14:45 | PC.NURSE ---
Patient discharge education reviewed with patient. All questions answered.
[2022-01-12 16:47] LABS: Zinc Level, Serum or Plasma 78 mcg/dL (60-130)
[2022-01-13 10:02] LABS: Vit D 1,25 (Oh)2, Total 49 pg/mL (18-72); Vit D2 1,25 (Oh)2 <8 pg/mL; Vit D3 1,25 (Oh)2 49 pg/mL
[2022-01-13 12:33] LABS: Vitamin B1(Thiamin) Plas/Ser 7 nmol/L (8-30)
== END 2022-01-12 14:45 | disposition home or self-care (01) | DRG 621 ==
LOC: MEDSURG 16:18
PROVIDERS: Admitting Provider Surgery; PCP Nurse Practitioner Family; Visit Provider Surgery
PROC: 0DB64Z3 Excision of Stomach, Percutaneous Endoscopic Approach, Vertical (ICD-10-PCS; CPT 43775; principal; 2022-01-10 08:40)
PROC: 0DJ08ZZ Inspection of Upper Intestinal Tract, Via Natural or Artificial Opening Endoscopic (ICD-10-PCS; CPT 43235; 2022-01-10 08:40)
DX: E66.01 Morbid (severe) obesity due to excess calories (principal); Z68.38 Body mass index [BMI] 38.0-38.9, adult; K59.04 Chronic idiopathic constipation; F17.210 Nicotine dependence, cigarettes, uncomplicated; E78.2 Mixed hyperlipidemia; E55.9 Vitamin D deficiency, unspecified; D51.9 Vitamin B12 deficiency anemia, unspecified; Z99.89 Dependence on other enabling machines and devices; G35 Multiple sclerosis; M54.14 Radiculopathy, thoracic region; M54.16 Radiculopathy, lumbar region; M43.12 Spondylolisthesis, cervical region; F43.12 Post-traumatic stress disorder, chronic; F60.3 Borderline personality disorder; K21.9 Gastro-esophageal reflux disease without esophagitis; F41.0 Panic disorder [episodic paroxysmal anxiety]; F42.9 Obsessive-compulsive disorder, unspecified; F41.1 Generalized anxiety disorder; G47.33 Obstructive sleep apnea (adult) (pediatric); F31.9 Bipolar disorder, unspecified
CPT/HCPCS: 36415; 36416; 51702; 74240; 80048; 80053; 80061; 82310; 82607; 82652; 82728; 82746; 82962; 83540; 83550; 83735; 83970; 84425; 84443; 84630; 85014; 85018; 85025; 88309; 96372; C9113; C9290; J0330; J1100; J1200; J1644; J2250; J2270; J2405; J2704; J2710; J3010; J3490; J7030; J7040; Q9963

== ENCOUNTER → 2022-01-17 07:34 | Outpatient (BNVA) | payer MEDICARE, MEDICAID, SELFPAY ==
[2021-10-17 18:57] VITALS: BP 123/82; BMI 34.3
== END ==
PROVIDERS: PCP Nurse Practitioner Family; Visit Provider Nurse Practitioner Psychiatric/Mental Health
DX: F31.63 Bipolar disorder, current episode mixed, severe, without psychotic features (principal); F41.0 Panic disorder [episodic paroxysmal anxiety]; F41.1 Generalized anxiety disorder; F43.12 Post-traumatic stress disorder, chronic; F60.3 Borderline personality disorder
CPT/HCPCS: 99214

== ENCOUNTER → 2022-01-25 11:01 | Outpatient (BNVA) | payer MEDICARE, MEDICAID, SELFPAY ==
[2021-10-17 18:57] VITALS: BP 123/82; BMI 34.3
== END ==
PROVIDERS: PCP Internal Medicine; Visit Provider Surgery
DX: Z98.890 Other specified postprocedural states (principal); Z98.84 Bariatric surgery status; T14.8XXA Other injury of unspecified body region, initial encounter; L08.9 Local infection of the skin and subcutaneous tissue, unspecified; X58.XXXA Exposure to other specified factors, initial encounter

== ENCOUNTER → 2022-02-01 13:17 | Outpatient (BNVA) | payer MEDICARE, MEDICAID, SELFPAY ==
[2021-10-17 18:57] VITALS: BP 123/82; BMI 34.3
== END ==
PROVIDERS: PCP Internal Medicine; Visit Provider Surgery
DX: Z98.84 Bariatric surgery status (principal); Z98.890 Other specified postprocedural states; T14.8XXA Other injury of unspecified body region, initial encounter; L08.9 Local infection of the skin and subcutaneous tissue, unspecified; X58.XXXA Exposure to other specified factors, initial encounter

== ENCOUNTER → 2022-02-08 10:41 | Outpatient (BNVA) | payer MEDICARE, MEDICAID, SELFPAY ==
[2021-10-17 18:57] VITALS: BP 123/82; BMI 34.3
== END ==
PROVIDERS: PCP Internal Medicine; Visit Provider Surgery
DX: Z98.84 Bariatric surgery status (principal)

== ENCOUNTER → 2022-02-23 12:44 | Outpatient (BNVA) | payer MEDICARE, MEDICAID, SELFPAY ==
[2021-10-17 18:57] VITALS: BP 123/82; BMI 34.3
== END ==
PROVIDERS: PCP Internal Medicine; Visit Provider Surgery
DX: Z98.84 Bariatric surgery status (principal); E88.81 Metabolic syndrome and other insulin resistance

== ENCOUNTER → 2022-03-03 09:29 | Outpatient (BNVA) | payer MEDICARE, MEDICAID, SELFPAY ==
[2021-10-17 18:57] VITALS: BP 123/82; BMI 34.3
== END ==
PROVIDERS: PCP Internal Medicine; Visit Provider Nurse Practitioner Psychiatric/Mental Health
DX: F31.63 Bipolar disorder, current episode mixed, severe, without psychotic features (principal); F41.0 Panic disorder [episodic paroxysmal anxiety]; F41.1 Generalized anxiety disorder; F43.12 Post-traumatic stress disorder, chronic; F60.3 Borderline personality disorder
CPT/HCPCS: 99214

== ENCOUNTER 2022-03-27 14:42 | Outpatient (CLI) | payer MEDICARE, MEDICAID, SELFPAY ==
[2021-10-17 18:57] VITALS: BP 123/82; BMI 34.3
[2022-03-27 15:49] LABS: Basophils # 0.1 10^3/uL (0.0-0.1); Basophils % 0.6 %; Eosinophils # 0.1 10^3/uL (0.0-0.8); Hematocrit 38.5 % (37.0-47.0); Hemoglobin 11.9 g/dL (11.5-15.3); Lymphocytes # 2.3 10^3/uL (0.8-4.8); Lymphocytes % 23.6 %; Mean Corpuscular HGB Conc 30.9 g/dL (30.0-36.0); Mean Corpuscular Hemoglobin 27.7 pg (28.0-34.0); Mean Corpuscular Volume 89.5 fl (81-99); Mean Platelet Volume 9.4 fL (7.4-10.4); Monocytes # 0.9 10^3/uL (0.2-0.9); Monocytes % 9.3 %; Neutrophils # 6.35 10^3/uL (1.8-7.7); Neutrophils % 65.2 %; Nucleated Red Blood Cells % 0 %; Platelet Count 611 10^3/cmm (130-400); Red Cell Distribution Width 14.5 % (12.1-15.1); White Blood Count 9.8 10^3/uL (4.0-10.0)
[2022-03-27 16:14] LABS: Phosphorus 3.6 mg/dL (2.5-4.5)
[2022-03-27 16:29] LABS: Calcium 9.6 mg/dL (8.5-10.5)
[2022-03-27 16:36] LABS: Parathyroid Hormone 32.3 pg/mL (15-65)
[2022-03-27 16:45] LABS: Folate Level 11.9 ng/mL (4.8-37.3)
[2022-03-27 17:28] LABS: Urine Appearance Cloudy (CLEAR); Urine Color Orange (Yellow)
[2022-03-27 17:29] LABS: Bilirubin Urine 1+ (Negative); Blood Urine Neg (Negative); Glucose Urine UA Norm (Normal); Ketones Urine 1+ (Negative); Leukocyte Esterase Urine Trace (Negative); Nitrate Urine Negative (Negative); Protein Urine Neg (Negative); RBC Urine 0-4 /hpf (0-2); Specific Gravity, Urine 1.025 (1.005-1.030); Urobilinogen Urine 4 mg/dL (Negative); WBC Urine 0-4 /hpf (0-5); pH Urine 5 (5-7)
[2022-03-27 17:30] LABS: Add Urine Culture? Yes; Bacteria Urine 1+ /hpf; Calcium Oxalate Crystals Urine 0-4 /hpf
[2022-03-27 18:00] LABS: Alanine Aminotransferase 7 U/L (0-33); Albumin Level 3.5 g/dL (3.5-5.2); Alkaline Phosphatase 99 IU/L (35-105); Anion Gap 17.3 (5-19); Aspartate Amino Transferase 10 U/L (0-32); Blood Urea Nitrogen 5 mg/dL (6-20); Calcium 9.8 mg/dL (8.5-10.5); Carbon Dioxide 25 mmol/L (22-29); Chloride 98 mmol/L (98-107); Chol HDL Ratio 4.42 mg/dL (0.0-4.40); Cholesterol 199 mg/dL (0-200); Ferritin 266 ng/mL (15-150); Globulin 3.8 g/dL (1.3-4.6); Glomerular Filtration Rate 131.1 mL/min (90-130); Glucose 97 mg/dL (65-115); HDL Cholesterol 45 mg/dL (60-100); Iron 22 ug/dL (37-145); LDL Cholesterol Calculated 133 mg/dL (50-129); LDL HDL Ratio 2.96 RATIO (0.00-3.22); Magnesium 2.1 mg/dL (1.7-2.3); Osmolality Calculated 281 mOsm/kg (285-295); Percent Saturation 11.3 % (20-50); Potassium 3.3 mmol/L (3.5-5.1); Sodium 137 mmol/L (136-145); Total Bilirubin 0.4 mg/dL (0.15-1.2); Total Iron Binding Capacity 193 mcg/dl; Total Protein 7.3 g/dL (6.6-8.7); Triglycerides 104 mg/dL (0-150); Unsaturated Iron Binding 171 ug/dL (112-347)
[2022-03-27 18:01] LABS: Thyroid Stimulating Hormone 1.23 uIU/mL (0.27-4.20); Vitamin B12 646 pg/mL (232-1245)
[2022-03-27 18:02] LABS: 25 Hydroxy Vitamin D 61 ng/mL (30-100)
[2022-03-27 18:24] LABS: Creatinine Urine, Random 426 mg/dL (28-217); Microalbum Creatinine Ratio Ur 5 mg/dL (0-20); Microalbumin Random Urine 2 ug/dL (0-20)
[2022-03-29 22:28] LABS: Zinc Level, Serum or Plasma 70 mcg/dL (60-130)
[2022-03-30 15:43] LABS: Add Urine Microscopic? NO
[2022-03-30 15:44] LABS: Bilirubin Urine 1+ (Negative); Blood Urine Neg (Negative); Glucose Urine UA Norm (Normal); Ketones Urine Negative (Negative); Leukocyte Esterase Urine Negative (Negative); Nitrate Urine Negative (Negative); Protein Urine Neg (Negative); Urine Appearance Hazy (CLEAR); Urine Color Yellow (Yellow); Urobilinogen Urine 4 mg/dL (Negative); pH Urine 6.5 (5-7)
[2022-03-30 15:46] LABS: Charge for UA Resulting for Rev
[2022-04-01 09:23] LABS: Vitamin B1(Thiamin) Plas/Ser <7 nmol/L (8-30)
== END 2022-03-27 14:43 | disposition home or self-care (01) ==
LOC: LAB 14:46
PROVIDERS: Internal Medicine Nephrology; PCP Internal Medicine; Visit Provider Surgery
DX: E88.81 Metabolic syndrome and other insulin resistance (principal); N39.0 Urinary tract infection, site not specified; E87.6 Hypokalemia
CPT/HCPCS: 36415; 80053; 80061; 81001; 82044; 82306; 82310; 82607; 82728; 82746; 83540; 83550; 83735; 83970; 84100; 84425; 84443; 84630; 85025

== ENCOUNTER 2022-03-30 14:51 | Outpatient (CLI) | payer MEDICARE, MEDICAID, SELFPAY ==
[2021-10-17 18:57] VITALS: BP 123/82; BMI 34.3
== END 2022-03-30 14:52 | disposition home or self-care (01) ==
PROVIDERS: PCP Internal Medicine; Visit Provider Registered Nurse
DX: N39.0 Urinary tract infection, site not specified (principal)
CPT/HCPCS: 81003; 87086

== ENCOUNTER → 2022-04-10 11:15 | Outpatient (BNVA) | payer MEDICARE, MEDICAID, SELFPAY ==
[2021-10-17 18:57] VITALS: BP 123/82; BMI 34.3
== END ==
PROVIDERS: PCP Internal Medicine; Visit Provider Surgery
DX: Z98.84 Bariatric surgery status (principal)
CPT/HCPCS: 99024

== ENCOUNTER 2022-04-30 20:05 | Emergency (ER) | payer MEDICARE, MEDICAID, SELFPAY ==
[2021-10-17 18:57] VITALS: BP 123/82; BMI 34.3
[2022-04-30 20:14] VITALS: BP 98/65; PULSE 106; RESP 16; TEMP 36.4; O2SAT 98
--- NOTE | 2022-04-30 21:49 | ECG_ITS ---
[facility] Test Date: 2022-05-01 Pat Name: Odalys Casiano Department: Room: Gender: Female Manager Estate: : 1975 Requested By: Dagoberto Goff Order Number: [id number] Jessica MD: Zack Sharif M.D. Measurements Intervals [place] Rate: 84 P: 16 AR: 130 QRS: 43 QRSD: 97 T: 2 QT: 369 QTc: 438 Interpretive Statements SINUS RHYTHM NONSPECIFIC ST & T-WAVE ABNORMALITY Compared to ECG 11/19/2020 14:18:41 Possible ischemia no longer present T-wave abnormality still present Electronically Signed On 05-01-2022 18:22:42 CDT by Zack Sharif M.D. [id number]
[2022-04-30 22:17] VITALS: BP 111/78; BP 121/80; BP 130/85; PULSE 101; PULSE 95; PULSE 99
--- NOTE | 2022-04-30 22:33 | CTR_ITS ---
PROCEDURE INFORMATION: Exam: CTA Chest With Contrast Exam date and time: 05/01/2022 12:18 AM Age: 47 years old Clinical indication: Abdominal tenderness and bloating; Shortness of breath and other: Syncopal episode; Additional info: Syncope, tachycardia, hypoxia recent gastric SX TECHNIQUE: Imaging protocol: Computed tomographic angiography of the chest with contrast. 3D rendering (Not supervised by radiologist): MIP and/or 3D reconstructed images were created by the technologist. Radiation optimization: All CT scans at this facility use at least one of these dose optimization techniques: automated exposure control; mA and/or kV adjustment per patient size (includes targeted exams where dose is matched to clinical indication); or iterative reconstruction. Contrast material: OMNIPAQUE 350; Contrast volume: 95 ml; Contrast route: INTRAVENOUS (IV); COMPARISON: CR XR chest 1V portable [id number] 05/29/2021 7:17 PM RADIATION DOSE METRICS: Total DLP (mGy-cm): 1914.68 FINDINGS: Pulmonary arteries: Normal. No pulmonary emboli. Aorta: Unremarkable. No aortic aneurysm. No aortic dissection. Lungs: A few subpleural emphysematous blebs are seen in the lung apices bilaterally. Hazy opacities are seen in the dependent portion of the lungs compatible with some dependent atelectasis. There is a 6.5 mm pulmonary nodularity seen in the left upper lobe anteriorly and medially. Pleural spaces: Unremarkable. No pneumothorax. No pleural effusion. Heart: Unremarkable. No cardiomegaly. No pericardial effusion. Lymph nodes: Unremarkable. No enlarged lymph nodes. Bones/joints: Unremarkable. No acute fracture. Soft tissues: Unremarkable. months, then CT Chest at 18-24 months. (Reference: Frederic) REFERENCES: Frederic Isidro, et al. Guidelines for Management of Incidental Pulmonary Nodules Detected on CT Images: From the Fleischner Society 2017. Radiology. 2017;284(1):228-243. PROCEDURE INFORMATION: Exam: CT Abdomen And Pelvis With Contrast Exam date and time: 05/01/2022 12:18 AM Age: 47 years old Clinical indication: Abdominal tenderness and bloating; Shortness of breath and other: Syncopal episode; Additional info: Syncope, tachycardia, hypoxia recent gastric SX TECHNIQUE: Imaging protocol: Computed tomography of the abdomen and pelvis with contrast. Radiation optimization: All CT scans at this facility use at least one of these dose optimization techniques: automated exposure control; mA and/or kV adjustment per patient size (includes targeted exams where dose is matched to clinical indication); or iterative reconstruction. Contrast material: OMNIPAQUE 350; Contrast volume: 95 ml; Contrast route: INTRAVENOUS (IV); COMPARISON: CT abdomen pelvis w con* [id number] 11/07/2019 9:59 PM RADIATION DOSE METRICS: Total DLP (mGy-cm): 1914.68 FINDINGS: Liver: Normal. No mass. Gallbladder and bile ducts: Status post cholecystectomy. Pancreas: Normal. No ductal dilation. Spleen: Normal. No splenomegaly. Adrenal glands: Normal. No mass. Kidneys and ureters: Normal. No hydronephrosis. Stomach and bowel: Status post recent gastric surgery. There are strandy and hazy opacities and some gas densities seen in the left upper quadrant adjacent to the left hepatic lobe and proximal stomach likely representing mild postoperative changes. There is some thickening of the gastric wall likely representing mild postoperative changes as well. Appendix: Status post appendectomy. Intraperitoneal space: Unremarkable. No free air. No significant fluid collection. Vasculature: Unremarkable. No abdominal aortic aneurysm. Lymph nodes: Unremarkable. No enlarged lymph nodes. Urinary bladder: Unremarkable as visualized. Reproductive: Status post hysterectomy. Bones/joints: Unremarkable. No acute fracture. Soft tissues: There are hazy and strandy opacity seen in the subcutaneous fat and fascia the epigastrium on left compatible postoperative inflammatory and edematous changes. CT/CT angio chest w abd pel w con IMPRESSION: 1. There is no evidence for pulmonary emboli. 2. There are no acute chest findings. 3. Pulmonary nodularity in the left upper lobe anteriorly and medially measuring 6.5 mm. For patients at low risk (minimal or absent history of smoking and of other known risk factors), recommend CT Chest at 6-12 months, then consider CT Chest at 18-24 months. For patients at high risk (history of smoking or of other known risk factors), recommend CT Chest at 6-12 IMPRESSION: 1. There are diffuse hazy in strandy edematous or inflammatory changes and gas densities seen adjacent to the left hepatic lobe and proximal stomach likely representing postoperative changes from recent gastric surgery. With 2. There is some thickening of the proximal gastric wall likely representing postoperative changes well.
--- NOTE | 2022-04-30 22:33 | CTR_ITS ---
PROCEDURE INFORMATION: Exam: CT Head Without Contrast Exam date and time: 04/30/2022 11:00 PM Age: 47 years old Clinical indication: Syncope and collapse; Additional info: Syncope episode today with possible loc TECHNIQUE: Imaging protocol: Computed tomography of the head without contrast. Radiation optimization: All CT scans at this facility use at least one of these dose optimization techniques: automated exposure control; mA and/or kV adjustment per patient size (includes targeted exams where dose is matched to clinical indication); or iterative reconstruction. COMPARISON: CT head wo con* [id number] 09/05/2019 6:01 PM RADIATION DOSE METRICS: Total DLP (mGy-cm): 1047.78 FINDINGS: Brain: Normal. No hemorrhage. Unremarkable white matter. No mass effect. Cerebral ventricles: No ventriculomegaly. Paranasal sinuses: Mucosal thickening and fluid is seen within the ethmoidal sinuses bilaterally. The is a hypoplastic right frontal sinus. Mastoid air cells: Visualized mastoid air cells are well aerated. Bones/joints: Unremarkable. No acute fracture. Soft tissues: Unremarkable. CT/CT head wo con* [id number] IMPRESSION: There are no acute intracranial findings.
[2022-04-30 23:30] VITALS: BP 117/67; PULSE 95; RESP 17; O2SAT 94
[2022-04-30 23:40] LABS: Basophils % 0.4 %; Hematocrit 39.1 % (37.0-47.0); Hemoglobin 12.4 g/dL (11.5-15.3); Lymphocytes # 1.3 10^3/uL (0.8-4.8); Lymphocytes % 14.5 %; Mean Corpuscular HGB Conc 31.7 g/dL (30.0-36.0); Mean Corpuscular Volume 88.3 fl (81-99); Mean Platelet Volume 10.2 fL (7.4-10.4); Monocytes # 0.8 10^3/uL (0.2-0.9); Monocytes % 8.8 %; Neutrophils # 6.83 10^3/uL (1.8-7.7); Nucleated Red Blood Cells % 0 %; Platelet Count 366 10^3/cmm (130-400); Red Blood Count 4.43 10^6/uL (4.1-5.3); Red Cell Distribution Width 15.6 % (12.1-15.1)
[2022-04-30 23:58] LABS: Anion Gap 16.4 (5-19); Blood Urea Nitrogen 10 mg/dL (6-20); Calcium 9.1 mg/dL (8.5-10.5); Carbon Dioxide 25 mmol/L (22-29); Chloride 95 mmol/L (98-107); Creatine Phosphokinase 16 U/L (26-192); Glomerular Filtration Rate 88.9 mL/min (90-130); Glucose 118 mg/dL (65-115); Osmolality Calculated 276 mOsm/kg (285-295); Potassium 3.4 mmol/L (3.5-5.1); Sodium 133 mmol/L (136-145); Troponin(5th) Baseline 9 ng/L (0-10)
--- NOTE | 2022-05-01 00:13 | W.ED.SYNCOPE ---
HPI - Syncope General: Chief Complaint: Syncope Stated Complaint: Passed out\Shaking not focus Time Seen by Provider: 04/30/22 22:21 Source: patient History of Present Illness: 47-year-old female who has had 2 syncopal episodes today. The first was at the pool. The second was while sitting in a chair. She attributed the first 1 to heat. The second 1 she was in the air conditioning. She notes that her vision became black, she became a bit diaphoretic, and passed out for an unknown time period. She apparently did not quit breathing. Her friend witnessed the second 1, and fanned her and shook her until she woke up. There was some history of shaking although no convulsions necessarily during the second episode. She did not have any chest pain with either episode. MD complaint: loss of consciousness Onset (ago): hour(s) Prodromal symptoms: vision changes, lightheaded, diaphoresis and nausea/vomiting Witnessed: Yes - by Bystander Context: at rest Injuries sustained associated with event: none Associated symptoms: Reports lightheadedness, nausea and weakness (Generalized); Deny abdominal pain, chest pain, fever(s), headache(s) or short of breath History: other (None) Treatments prior to arrival: none Review of Systems Const: Denies: fever(s) Eyes: Reports: change in vision ENMT: Reports: throat pain, odynophagia, nasal discharge and nasal congestion Card: Reports: lightheadedness; Denies: chest pain or palpitations Resp: Reports: productive cough; Denies: dyspnea or non-productive cough GI: Reports: nausea; Denies: abdominal pain Neuro: Denies: headache(s) PFS ED PFSH: Medical History Abnormal mammogram Anemia Bipolar I disorder, most recent episode mixed, severe without psychotic features Provisional BMI 38.0-38.9,adult Borderline personality disorder Chronic idiopathic constipation Chronic migraine Chronic posttraumatic stress disorder Decreased glomerular filtration rate (GFR) Disc displacement, thoracic Diverticulosis Fatigue Generalized anxiety disorder Infected hematoma Long-term current use of opiate analgesic Lumbar back pain with radiculopathy affecting lower extremity Medication management Mixed hyperlipidemia Morbid obesity Multiple sclerosis Obesity FLORY treated with BiPAP Pain management contract signed Panic disorder without agoraphobia Provisional Psychiatric care Spondylolisthesis of cervical region Spondylosis without myelopathy or radiculopathy, lumbar region Vitamin B12 deficiency anemia Vitamin D deficiency Surgical History History of partial hysterectomy History of removal of skin mole 11/19/19 [facility] Hx of cholecystectomy (~08/06/17) Hx of oophorectomy (~2010) LEFT Hx of tubal ligation S/P laparoscopic sleeve gastrectomy Family History Mother Cancer UTERINE CANCER Lupus Family/Other Lupus AUNT Other Diabetes Hypertension Stroke Social History Smoking and tobacco status: former smoker Second hand smoke exposure: Yes Alcohol intake: former Adopted: No Caregiver/support person: No Lives independently: No Household members: none Housing: Apartment Marital status: Single Number of children: 3 Number of grandchildren: 1 Highest education level completed: Some College, No Degree service: No Current occupational status: disabled Pets and animals: Yes Pets & animals: dog(s) History of recent travel: No Leisure activites: other Leisure activities details: watch tv Sexually active: No Current gender identity: Female Elisabeth/Anabaptist: None Financial difficulty paying for basics: Not Very Hard Female Reproductive History: Para: 3 Spontaneous abortions: No Physical Exam Const: COMMON NORMALS: patient oriented x3 and alert GENERAL APPEARANCE: cooperative; not frail appearing HENMT: COMMON NORMALS: normocephalic, atraumatic and Normal external nose present HEAD & SCALP: normocephalic and atraumatic FACE & SINUS: normal facial exam and face symmetric NOSE: Normal external nose present Eye: COMMON NORMALS: Equal, round and reactive pupils present and EOMs intact bilaterally PUPIL: Yes Equal, round and reactive pupils present Neck/C-Spine: GENERAL: Yes trachea midline Chest: CHEST: Yes Symmetrical chest wall rise Resp: COMMON NORMALS: normal respiratory effort, No use of accessory muscles and clear to auscultation bilaterally AUSCULTATION: clear to auscultation bilaterally Cardio: COMMON NORMALS: regular rhythm RATE: tachycardic RHYTHM: regular rhythm GI: COMMON NORMALS: Normal to inspection, nondistended, normoactive bowel sounds present and Soft to palpation PALPATION: Yes Soft to palpation Extremity: COMMON NORMALS: no pedal edema Neuro: RAFAEL COMA SCALE: document GCS findings Henderson coma scale eye opening: Spontaneous Henderson coma scale verbal response: Orientated Henderson coma scale motor response: Obey commands Rafael coma scale total score: 15 COMMON NORMALS: patient oriented x3 SENSORIUM/ORIENTATION: Yes alert CRANIAL NERVES: Yes CN normal except as noted COORDINATION/BALANCE: [id number] test normal SPEECH: speech normal MOTOR EXAM: Pronator motor function not present and no tremor noted COORDINATION: [id number] test normal OTHER: No nystagmus Course Vital Signs: Vital signs: Vital Signs Temperature 97.6 F 04/30/22 20:14 Pulse Rate 73 05/01/22 03:22 Respiratory Rate 15 05/01/22 03:22 Blood Pressure 112/73 05/01/22 03:22 Pulse Oximetry 97 05/01/22 03:22 MDM - Syncope Medical Decision Making EKG shows a sinus rhythm with a biphasic T wave in V3. [place] and intervals are normal. No acute ST changes. CBC is normal. Potassium is 3.4. First troponin is 9. Patient is tachycardic and mildly hypoxic on exam. She is normotensive. She has had a recent gastric sleeve surgery as well. She will go for CT of the head, with CTA of the chest given syncope, hypoxia, and tachycardia. We will follow through with a belly CT given her recent surgery Lab Data : 04/30/22 23:35 04/30/22 23:35 Radiology Impressions Chest/Abdomen/Pelvis CT 04/30/22 22:33 IMPRESSION: 1. There is no evidence for pulmonary emboli. 2. There are no acute chest findings. 3. Pulmonary nodularity in the left upper lobe anteriorly and medially measuring 6.5 mm. For patients at low risk (minimal or absent history of smoking and of other known risk factors), recommend CT Chest at 6-12 months, then consider CT Chest at 18-24 months. For patients at high risk (history of smoking or of other known risk factors), recommend CT Chest at 6-12 IMPRESSION: 1. There are diffuse hazy in strandy edematous or inflammatory changes and gas densities seen adjacent to the left hepatic lobe and proximal stomach likely representing postoperative changes from recent gastric surgery. With 2. There is some thickening of the proximal gastric wall likely representing postoperative changes well. Head CT 04/30/22 22:33 IMPRESSION: There are no acute intracranial findings. Laboratory Results WBC 9.0 10^3/uL (4.0-10.0) 04/30/22 23:35 RBC 4.43 10^6/uL (4.1-5.3) 04/30/22 23:35 Hgb 12.4 g/dL (11.5-15.3) 04/30/22 23:35 Hct 39.1 % (37.0-47.0) 04/30/22 23: MCV 88.3 fl (81-99) 04/30/22 23:35 MCH 28.0 pg (28.0-34.0) 04/30/22 23: MCHC 31.7 g/dL (30.0-36.0) 04/30/22: RDW 15.6 % (12.1-15.1) H 04/30/22 23:35 Plt Count 366 10^3/cmm (130-400) 04/30/22 23:35 MPV 10.2 fL (7.4-10.4) 04/30/22 23:35 Neut % (Auto) 76.0 % 04/30/22 23:35 Lymph % (Auto) 14.5 % 04/30/22 23:35 [place] % (Auto) 8.8 % 04/30/22 23:35 Eos % (Auto) 0.0 % 04/30/22 23:35 Baso % (Auto) 0.4 % 04/30/22 23:35 Neut # (Auto) 6.83 10^3/uL (1.8-7.7) 04/30/22 23:35 Lymph # (Auto) 1.3 10^3/uL (0.8-4.8) 04/30/22 23:35 [place] # (Auto) 0.8 10^3/uL (0.2-0.9) 04/30/22 23:35 Eos # (Auto) 0.0 10^3/uL (0.0-0.8) 04/30/22 23:35 Baso # (Auto) 0.0 10^3/uL (0.0-0.1) 04/30/22 23:35 Nucleated RBC % (auto) 0 % 04/30/22 23: Nucleated RBCs # 0.0 /100WBC 04/30/22 23:35 Sodium 133 mmol/L (136-145) L 04/30/22 23:35 Potassium 3.4 mmol/L (3.5-5.1) L 04/30/22 23:35 Chloride 95 mmol/L (98-107) L 04/30/22 23:35 Carbon Dioxide 25 mmol/L (22-29) 04/30/22 23:35 Anion Gap 16.4 (5-19) 04/30/22 23:35 BUN 10 mg/dL (6-20) 04/30/22 23:35 Creatinine 0.7 mg/dL (0.5-0.9) 04/30/22 23:35 GFR Calculation 88.9 mL/min (90-130) L 04/30/22 23:35 Glucose 118 mg/dL (65-115) H 04/30/22 23:35 Calculated Osmolality 276 mOsm/kg (285-295) L 04/30/22 23:35 Calcium 9.1 mg/dL (8.5-10.5) 04/30/22 23:35 Creatine Kinase 16 U/L (26-192) L 04/30/22 23:35 Troponin T Baseline 9 ng/L (0-10) 04/30/22 23:35 Troponin T 120 Minute 7.52 ng/L (0-10) 05/01/22 01:33 Delta Troponin T -1.48 ABS# (0-10) L 05/01/22 01:33 Discharge Plan Discharge Patient Disposition: Home Clinical Impression: Syncope, Sinusitis, acute Condition: Stable Prescriptions: New doxycycline hyclate 100 mg tablet 100 mg PO BID 10 Days Qty: 20 0RF No Action fluticasone propionate [Flonase Allergy Relief] 50 mcg/actuation spray,suspension 1 spray intranasal BID 0RF Rx Instructions: administer into each nostril [id number] 137 mcg-50 mcg- 0.9 % kit,spray suspension and spray 1 spray intranasal BID 0RF Rx Instructions: administer into each nostril Linzess 290 mcg capsule See Rx Instructions .ROUTE .COMPLEX Qty: 30 2RF Dose Instruction: TAKE 1 CAPSULE BY MOUTH EVERY DAY IN THE MORNING Rx Instructions: TAKE 1 CAPSULE BY MOUTH EVERY DAY IN THE MORNING duloxetine [Cymbalta] 30 mg capsule,delayed release(DR/EC) 30 mg PO .morning Qty: 90 2RF Rx Instructions: Take one capsule in morning Dexilant 60 mg capsule,biphase delayed releas 60 mg PO DAILY Qty: 90 2RF levocetirizine [Xyzal] 5 mg tablet 5 mg PO BID Qty: 240 1RF cholecalciferol (vitamin D3) 1,250 mcg (50,000 unit) capsule 50,000 unit PO .weekly 90 Days Qty: 12 1RF duloxetine [Cymbalta] 60 mg capsule,delayed release(DR/EC) 60 mg PO .morning Qty: 90 2RF Rx Instructions: Take one capsule by mouth every morning Myrbetriq 25 mg tablet extended release 24 hr See Rx Instructions .ROUTE .COMPLEX Qty: 90 3RF Dose Instruction: TAKE 1 TABLET BY MOUTH EVERY DAY (24 HOURS) Rx Instructions: TAKE 1 TABLET BY MOUTH EVERY DAY (24 HOURS) zonisamide 100 mg capsule 500 mg PO DAILY Qty: 450 1RF Rx Instructions: Must have appointment for future refills hydrochlorothiazide 25 mg tablet 37.5 mg PO DAILY Qty: 135 1RF Transderm-Scop 1 mg over 3 days patch 3 day 1 patch transdermal Q72H PRN (Reason: Nausea) Qty: 4 1RF Zofran 4 mg tablet 4 mg PO TID PRN (Reason: nausea and vomiting) Qty: 30 2RF Discharge Orders: Discharge ED (Routine); Ordered 05/01/22 Ordered By: Thierry Sood Referrals: Flex Hu MD [Primary Care Provider] - 1-3 days Patient Instructions: Sinusitis (ED), Syncope (ED) Activity Restrictions/Additional Instructions: Return for fever, chest discomfort, shortness of breath, repeated episodes of syncope or passing out, other concerning symptoms. 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
[2022-05-01] MEDS: sodium chloride 0.9% 1,000 ML 999 ML IV ×2 (00:49→02:24)
[2022-05-01 01:56] LABS: Troponin 5 2HR 7.52 ng/L (0-10)
[2022-05-01 02:20] LABS: Troponin 5 2HR Delta -1.48 ABS# (0-10)
[2022-05-01 03:00] VITALS: BP 110/73; PULSE 71; RESP 16; O2SAT 94
[2022-05-01 03:22] VITALS: BP 112/73; PULSE 73; RESP 15; O2SAT 97
== END 2022-05-01 03:26 | disposition home or self-care (01) ==
PROVIDERS: Emergency Medicine; Emergency Provider Emergency Medicine; PCP Internal Medicine
DX: J01.90 Acute sinusitis, unspecified (principal); R55 Syncope and collapse
CPT/HCPCS: 70450; 71275; 74177; 80048; 82550; 84484; 85025; 93005; 96360; 96361; 99285; J7030; Q9967

== ENCOUNTER 2022-05-03 08:46 | Outpatient (CLI) | payer MEDICARE, MEDICAID, SELFPAY ==
[2021-10-17 18:57] VITALS: BP 123/82; BMI 34.3
[2022-05-03 08:54] VITALS: BP 110/77; PULSE 94; RESP 18; TEMP 36.3; O2SAT 94
--- NOTE | 2022-05-03 09:15 | PC.NURSE ---
Pt presented for infusion of 600mg Ocrevus. She states that she was in E.D. 3 days ago with syncopal episodes x 2. E.D. evaluation found no cause. Pt denies any issues today, and vital signs are stable. Addressed concerns with Dr. Cheek, and she states okay to proceed with treatment. dh
[2022-05-03] MEDS: sodium chloride 0.9% 250 ML 50 ML IV (09:46)
[2022-05-03] MEDS: acetaminophen 500 mg Tablet 1000 MG PO (09:47)
[2022-05-03] MEDS: diphenhydrAMINE 50 mg/mL SDV 1mL 25 MG IVP (09:49)
[2022-05-03 10:09] VITALS: BP 100/70; PULSE 73; RESP 18; TEMP 36.4; O2SAT 93
[2022-05-03 10:51] VITALS: BP 116/76; PULSE 71; RESP 18; TEMP 36.6; O2SAT 90
[2022-05-03 12:29] VITALS: BP 132/69; PULSE 67; RESP 18; TEMP 36.6; O2SAT 99
== END 2022-05-03 08:47 | disposition home or self-care (01) ==
PROVIDERS: PCP Internal Medicine; Referring Provider Specialist; Visit Provider Specialist
DX: G35 Multiple sclerosis (principal)
CPT/HCPCS: 96365; 96366; 96375; J1200; J2350; J2930; J7040; J7050

== ENCOUNTER → 2022-06-01 13:51 | Outpatient (BNVA) | payer MEDICARE, MEDICAID, SELFPAY ==
[2021-10-17 18:57] VITALS: BP 123/82; BMI 34.3
== END ==
PROVIDERS: PCP Internal Medicine; Visit Provider Surgery
DX: R11.2 Nausea with vomiting, unspecified (principal); Z98.84 Bariatric surgery status
CPT/HCPCS: 99213

== ENCOUNTER 2022-06-16 09:59 | Outpatient (CLI) | payer MEDICARE, MEDICAID, SELFPAY ==
[2021-10-17 18:57] VITALS: BP 123/82; BMI 34.3
--- NOTE | 2022-06-16 10:14 | FL_ITS ---
WS: [id number] Upper GI series, 06/16/2022 Clinical Data: NAUSEA VOMITING Comparison: Upper GI series, 01/11/2022. Fluoroscopy time: 1min [id number] # of spot films: 14 Findings: The barium flowed through the esophagus with normal motility. No hiatal hernia, reflux, stricture, ma ss, polyp, erosion or ulcer was seen in the esophagus. The barium entered the stomach. The stomach fundus was small. There was narrowing of the junction bet ween the fundus and body the stomach. There may be an extrinsic pressure defect between the fundus an d body of the stomach. No gastric ulcer is seen. The barium passed smoothly into the duodenal bulb wh ich fill normally without ulcer. The proximal duodenum was normal. FL/MI upper GI series [id number] Impression: 1. Small stomach consistent with gastric sleeve surgery. 2. Extrinsic defect narrowing the junction between the fundus and body of stoma ch which may be result of the gastric sleeve surgery
== END 2022-06-16 10:00 | disposition home or self-care (01) ==
PROVIDERS: PCP Internal Medicine; Visit Provider Surgery
DX: R11.2 Nausea with vomiting, unspecified (principal); Z98.84 Bariatric surgery status
CPT/HCPCS: 74240

== ENCOUNTER → 2022-06-22 16:29 | Outpatient (BNVA) | payer MEDICARE, MEDICAID, SELFPAY ==
[2021-10-17 18:57] VITALS: BP 123/82; BMI 34.3
== END ==
PROVIDERS: PCP Internal Medicine; Visit Provider Surgery
DX: Z09 Encounter for follow-up examination after completed treatment for conditions other than malignant neoplasm (principal); R11.2 Nausea with vomiting, unspecified
CPT/HCPCS: 99212

== ENCOUNTER → 2022-06-29 13:47 | Outpatient (BNVA) | payer MEDICARE, MEDICAID, SELFPAY ==
[2021-10-17 18:57] VITALS: BP 123/82; BMI 34.3
== END ==
PROVIDERS: PCP Internal Medicine; Visit Provider Surgery
DX: R19.00 Intra-abdominal and pelvic swelling, mass and lump, unspecified site (principal); R11.2 Nausea with vomiting, unspecified
CPT/HCPCS: 99213

== ENCOUNTER 2022-06-30 08:44 | Day surgery (SDC) | payer MEDICARE, MEDICAID, SELFPAY ==
[2021-10-17 18:57] VITALS: BP 123/82; BMI 34.3
[2022-06-30 08:24] VITALS: BMI 27.9
[2022-06-30 09:24] VITALS: BP 108/82; PULSE 108; RESP 18; TEMP 36.1; O2SAT 96
--- NOTE | 2022-06-30 09:47 | W.PM.OPSUD ---
Surgery/Procedure H&P Update DATE OF PROCEDURE: June 30, 2022 DATE H&P PERFORMED: 06/22/22 H&P UPDATE INFORMATION: I have reviewed H&P completed within last 30 days, I have examined patient prior to procedure and No changes to prior documentation PREOP DIAGNOSIS: Status post gastric sleeve nausea and vomiting PRIMARY INDICATION FOR PROCEDURE: The same PLANNED PROCEDURE: Operation Date: 06/30/22 10:30 Proposed Procedures p EGD 88219 R11.2(Not Applicable) - Ayaan Villatoro MD
[2022-06-30] MEDS: sodium chloride 0.9% 1,000 ML 30 ML IV (09:50)
[2022-06-30 11:11] VITALS: BP 98/73; PULSE 93; RESP 18; TEMP 36.2; O2SAT 97
[2022-06-30 11:16] VITALS: BP 113/75; PULSE 87; RESP 18; O2SAT 96
[2022-06-30 11:26] VITALS: BP 95/63; PULSE 82; RESP 18; O2SAT 97
--- NOTE | 2022-06-30 14:35 | P.ANESASSM_ITS ---
Pre-Anesthetic Assessment Height/Weight: Height 1.65 m Weight 76.204 kg Temp Pulse Resp BP Pulse Ox O2 Del Method 97.2 F L 82 18 95/63 97 06/30/22 11:11 06/30/22 11:26 06/30/22 11:26 06/30/22 11:26 06/30/22 11:06/30/22 11:26 Preop Diagnosis: Status post gastric sleeve nausea and vomiting Operation Date: 06/30/22 10:30 Proposed Procedures p EGD 50161 R11.2(Not Applicable) - Ayaan Villatoro MD Familial anesthetic complications: none Was Beta Kunal taken within 24 hours: N/A Was Clonidine taken within 24 hours: N/A Last intake: Intake Last Liquid Date 06/29/22 Last Liquid Time 18:30 Last Solid Date 06/29/22 Last Solid Time 18:30 Social No alcohol and No tobacco Exam alert, oriented x 3, clear to auscultation bilaterally and regular rate & rhythm Airway Submandibular: within normal limits Cervical ROM: within normal limits Mallampati: Class II CV/HEM Anemia, Arrythmia and Hypertension GI Gastroesophageal Reflux Disease gastritis Metabolic Hyperlipidemia [facility] Lower Back Pain and Osteoarthritis/DJD Neuropsych Anxiety and Depression Anesthetic Plan ASA status: 3 Anesthesia: MAC Medications/Allergies Home Medications Medication Instructions Recorded Confirmed Last Taken Type azelastine 137 mcg-fluticasone 50 1 spray intranasal BID 11/11/20 06/30/22 06/29/22 History mcg spray,susp-NaCl 0.9% spray nasal fluticasone propionate 50 1 spray intranasal BID 11/11/20 06/30/22 06/29/22 History mcg/actuation nasal spray,suspension (Flonase Allergy Relief) dexlansoprazole 60 mg 60 mg PO DAILY #90 caps 12/16/20 06/30/22 06/29/22 Rx capsule,biphase delayed release (Dexilant) levocetirizine 5 mg tablet (Xyzal) 5 mg PO BID #240 tabs 12/16/20 06/30/22 06/29/22 Rx zonisamide 100 mg capsule 500 mg PO DAILY #450 caps 11/30/21 06/30/22 06/29/22 Rx duloxetine 30 mg capsule,delayed 30 mg PO .morning #90 caps 06/05/22 06/30/2222 Rx release (Cymbalta) duloxetine 60 mg capsule,delayed 60 mg PO .morning #90 caps 06/05/22 06/30/22 06/29/22 Rx release (Cymbalta) amoxicillin 875 mg-potassium 1 tab PO BID 7 days 7 days #14 tabs 06/29/22 06/30/22 06/29/22 Rx clavulanate 125 mg tablet biotin 10,000 mcg disintegrating 10,000 mcg PO DAILY 06/30/22 06/30/22 06/30/22 History tablet cholecalciferol (vitamin D3) 50 50 mcg PO DAILY 06/30/22 06/30/22 06/29/22 History mcg (2,000 unit) capsule (Vitamin D3) ferrous sulfate 325 mg (65 mg 325 mg PO DAILY 06/30/22 06/30/22 06/29/22 History iron) tablet (iron) linaclotide 290 mcg capsule 290 mcg PO DAILY 06/30/22 06/30/22 06/29/22 History (Linzess) mirabegron 25 mg tablet,extended 25 mg PO DAILY 06/30/22 06/30/22 06/29/22 History release 24 hr (Myrbetriq) thiamine HCl (vitamin B1) 250 mg 250 mg PO DAILY 06/30/22 06/30/22 06/29/22 History tablet (Vitamin B-1) Allergies Allergy/AdvReac Type Severity Reaction Status Date / Time bee venom protein (honey bee) Allergy Unknown Unknown Verified 06/29/22 17:35 codeine AdvReac Unknown Unknown Verified 06/29/22 17:35 DOESN'T RECALL lamotrigine [From Lamictal] AdvReac Unknown RASH Verified 06/29/22 17:35 Penicillins AdvReac Unknown Unknown Verified 06/29/22 17:35 latex AdvReac RASH Verified 06/29/22 17:35 [facility] Anesthesia Medical History Abnormal mammogram Anemia Bipolar I disorder, most recent episode mixed, severe without psychotic features Provisional BMI 38.0-38.9,adult Borderline personality disorder Chronic idiopathic constipation Chronic migraine Chronic posttraumatic stress disorder Decreased glomerular filtration rate (GFR) Disc displacement, thoracic Diverticulosis Fatigue Generalized anxiety disorder Infected hematoma Long-term current use of opiate analgesic Lumbar back pain with radiculopathy affecting lower extremity Medication management Mixed hyperlipidemia Morbid obesity Multiple sclerosis Obesity FLORY treated with BiPAP Pain management contract signed Panic disorder without agoraphobia Provisional Psychiatric care Spondylolisthesis of cervical region Spondylosis without myelopathy or radiculopathy, lumbar region Vitamin B12 deficiency anemia Vitamin D deficiency Surgical History History of partial hysterectomy History of removal of skin mole 11/19/19 [facility] Hx of cholecystectomy (~08/06/17) Hx of oophorectomy (~2010) LEFT Hx of tubal ligation S/P laparoscopic sleeve gastrectomy Family History Mother Cancer UTERINE CANCER Lupus Family/Other Lupus AUNT Other Diabetes Hypertension Stroke Social History Smoking and tobacco status: never smoked Second hand smoke exposure: Yes Alcohol intake: former Adopted: No Caregiver/support person: No Lives independently: No Household members: none Housing: Apartment Marital status: Single Number of children: 3 Number of grandchildren: 1 Highest education level completed: Some College, No Degree service: No Current occupational status: disabled Pets and animals: Yes Pets & animals: dog(s) History of recent travel: No Leisure activites: other Leisure activities details: watch tv Sexually active: No Current gender identity: Female Elisabeth/Judaism: None Financial difficulty paying for basics: Not Very Hard Female Reproductive History Para: 3 Spontaneous abortions: No Data Anesthesia Cardiac Studies: No Data to Display
--- NOTE | 2022-06-30 15:51 | ANE.PACU2 ---
Inpatient post-anesthesia follow up: Airway intact: Yes Vital signs: Temperature 97.2 F Pulse Rate 82 Respiratory Rate 18 Blood Pressure 95/63 Pulse Oximetry 97 Oxygen Delivery Me thod Room Air Oxygen Flow Rate Fraction of Inspir ed Oxygen Hydration adequate: Yes Nausea and vomiting: No Pain level: 1 Mental status: Baseline
== END 2022-06-30 11:45 | disposition home or self-care (01) ==
PROVIDERS: PCP Internal Medicine; Visit Provider Surgery
PROC: 0DJ08ZZ Inspection of Upper Intestinal Tract, Via Natural or Artificial Opening Endoscopic (ICD-10-PCS; CPT 43235; principal; 2022-06-30 10:30)
DX: R11.2 Nausea with vomiting, unspecified (principal); Z98.84 Bariatric surgery status; K21.9 Gastro-esophageal reflux disease without esophagitis; K29.50 Unspecified chronic gastritis without bleeding; I10 Essential (primary) hypertension; E78.5 Hyperlipidemia, unspecified; F41.1 Generalized anxiety disorder; Z79.891 Long term (current) use of opiate analgesic; E78.2 Mixed hyperlipidemia; E66.01 Morbid (severe) obesity due to excess calories; Z68.28 Body mass index [BMI] 28.0-28.9, adult; G47.33 Obstructive sleep apnea (adult) (pediatric)
CPT/HCPCS: 43239; 88305; 88342; J2704; J7030

== ENCOUNTER → 2022-07-19 11:00 | Outpatient (BNVA) | payer MEDICARE, MEDICAID, SELFPAY ==
[2021-10-17 18:57] VITALS: BP 123/82; BMI 34.3
== END ==
PROVIDERS: PCP Internal Medicine; Visit Provider Surgery
DX: Z98.84 Bariatric surgery status (principal); R19.00 Intra-abdominal and pelvic swelling, mass and lump, unspecified site; K29.60 Other gastritis without bleeding
CPT/HCPCS: 99213

== ENCOUNTER → 2022-08-30 08:40 | Outpatient (BNVA) | payer MEDICARE, MEDICAID, OTHER, SELFPAY ==
[2021-10-17 18:57] VITALS: BP 123/82; BMI 34.3
== END ==
PROVIDERS: PCP Internal Medicine; Visit Provider Surgery
DX: Z98.84 Bariatric surgery status (principal)
CPT/HCPCS: 99213

== ENCOUNTER → 2022-09-05 10:21 | Outpatient (BNVA) | payer MEDICARE, MEDICAID, SELFPAY ==
[2021-10-17 18:57] VITALS: BP 123/82; BMI 34.3
== END ==
PROVIDERS: PCP Internal Medicine; Visit Provider Specialist
DX: G35 Multiple sclerosis (principal); G43.711 Chronic migraine without aura, intractable, with status migrainosus
CPT/HCPCS: 99214

== ENCOUNTER 2022-11-02 08:51 | Outpatient (CLI) | payer MEDICARE, MEDICAID, SELFPAY ==
[2021-10-17 18:57] VITALS: BP 123/82; BMI 34.3
[2022-11-02 09:10] VITALS: BP 115/70; PULSE 75; RESP 18; TEMP 36.6; O2SAT 98
[2022-11-02] MEDS: sodium chloride 0.9% 250 ML 50 ML IV (09:32)
[2022-11-02] MEDS: acetaminophen 500 mg Tablet 1000 MG PO (09:33)
[2022-11-02] MEDS: diphenhydrAMINE 50 mg/mL SDV 1mL 25 MG IVP (09:35)
[2022-11-02 10:14] VITALS: BP 128/70; PULSE 63; RESP 18; TEMP 36.6; O2SAT 98
[2022-11-02 10:50] VITALS: BP 133/68; PULSE 58; RESP 18; TEMP 36.5; O2SAT 97
[2022-11-02 12:38] VITALS: BP 117/62; PULSE 61; RESP 18; TEMP 36.3; O2SAT 97
== END 2022-11-02 08:52 | disposition home or self-care (01) ==
PROVIDERS: PCP Family Medicine; Visit Provider Specialist
DX: G35 Multiple sclerosis (principal)
CPT/HCPCS: 96365; 96366; 96375; A4222; J1200; J2350; J2930; J7040; J7050

== ENCOUNTER 2022-11-22 06:33 | Outpatient (CLI) | payer MEDICARE, MEDICAID, SELFPAY ==
[2021-10-17 18:57] VITALS: BP 123/82; BMI 34.3
--- NOTE | 2022-11-22 | CT_ITS ---
WS: [id number] CT CHEST WITH AND WITHOUT INTRAVENOUS CONTRAST HISTORY: SOLITARY PULM NODULE TECHNIQUE: Contiguous 5 mm axial imaging performed on the thorax. Coronal and sagittal reformats are submitted. All CT scans at [facility] use at least one of these dose optimization techniques: automated exposure control; mA and/or kV adjustment per patient size (includes targeted exams where dose is matched to clinical indication); or iterative reconstruction. CONTRAST: Omnipaque 350; 95 mL IV. DLP: 622.81 mGy.cm COMPARISON: 05/01/2022 Lungs and central airway: Stable well-circumscribed 6.4 mm noncalcified nodule in the medial LEFT upp er lobe. 2 mm noncalcified nodule superior segment RIGHT lower lobe. 3 mm nodule posterior medial RIG HT upper lobe. No change. No pneumonia. No new or enlarging nodules. Pleura: Normal. No pleural effusion. Heart and pericardium: Mild enlargement of the LEFT heart chambers. No effusion. Mediastinum and milka: No mediastinum or hilar adenopathy. Vessels: Normal size aortic and pulmonary artery. No coronary artery calcifications. Chest wall and lower neck: No soft tissue masses. Upper abdomen: Prior cholecystectomy. Small hiatal hernia. Very mild thickening of the RIGHT adrenal gland similar to the prior study. Osseous structures: Mild thoracic spondylosis. CT/CT chest wo/w con [id number] IMPRESSION: 1. Stable 6.4 mm noncalcified nodule LEFT upper lobe since 05/01/2022. Recommen d additional [address] follow-up. Long-term imaging stabilit y for total of 2 years recommended. 2. Prior cholecystectomy.
[2022-11-22] MEDS: iohexol 350 mg/mL 500 mL Btl (per mL) IV (07:43)
== END 2022-11-22 06:34 | disposition home or self-care (01) ==
LOC: RAD 06:36
PROVIDERS: PCP Family Medicine; Visit Provider Family Medicine
DX: R91.1 Solitary pulmonary nodule (principal)
CPT/HCPCS: 71270; Q9967

== ENCOUNTER → 2022-12-11 10:22 | Outpatient (BNVA) | payer MEDICARE, MEDICAID, SELFPAY ==
[2021-10-17 18:57] VITALS: BP 123/82; BMI 34.3
== END ==
PROVIDERS: PCP Family Medicine; Visit Provider Specialist
DX: G43.711 Chronic migraine without aura, intractable, with status migrainosus (principal); G35 Multiple sclerosis; R42 Dizziness and giddiness
CPT/HCPCS: 99214

== ENCOUNTER → 2023-02-15 11:34 | Outpatient (BNVA) | payer MEDICARE, MEDICAID, SELFPAY ==
[2021-10-17 18:57] VITALS: BP 123/82; BMI 34.3
== END ==
PROVIDERS: PCP Family Medicine; Visit Provider Specialist
DX: G35 Multiple sclerosis (principal); M79.7 Fibromyalgia; M47.24 Other spondylosis with radiculopathy, thoracic region
CPT/HCPCS: 20550; 20552; 99215; J1030; J3490

== ENCOUNTER 2023-03-09 14:24 | Outpatient (CLI) | payer MEDICARE, MEDICAID, SELFPAY ==
[2021-10-17 18:57] VITALS: BP 123/82; BMI 34.3
[2023-03-09] MEDS: gadobenate dimeglumine 20 mL vial IV (15:30)
--- NOTE | 2023-03-09 16:00 | MR_ITS ---
WS: [id number] MRI HEAD WITH CONTRAST TECHNIQUE: Sagittal T1, T2 axial, T2 axial FLAIR, axial susceptibility weighted imaging, axial diffus ion weighted images, and coronal T2 images were obtained. Pre and post-T1 axial and post T1 coronal i mages. ADC and FSPGR images. CLINICAL INFORMATION: G35 - Multiple sclerosis COMPARISON: MRI FINDINGS: No evidence of restricted diffusion to suggest acute ischemia. Ventricular system and basal cisterns are patent. Mild patchy supratentorial periventricular and pericallosal lesions compatible with histo ry of demyelinating disease. The number and distribution of lesions is not significantly changed comp ared to 2019. No significant disease progression. No abnormal gadolinium enhancement to indicate acti ve disease. Mild T1 hypointense lesion load. Mild parenchymal volume loss. No significant atrophy of the corpus c allosum. Normal optic chiasm and pituitary infundibulum. Temporal lobes and hippocampal formations ar e normal in appearance. No hemosiderin on susceptibly weighted images. Mild mucosal thickening in the maxillary sinuses. MR/MR head wo/w con [id number] IMPRESSION: 1. Mild to moderate supratentorial white matter changes compatible with demyel inating disease. 2. No evidence of disease progression since 2019. 3. No enhancing lesions to indicate active disease. 4. Mild T1 hypointense lesion load. 5. Mild parenchymal volume loss. 6. No significant callosal atrophy.
== END 2023-03-09 14:25 | disposition home or self-care (01) ==
LOC: RAD 14:28
PROVIDERS: PCP Family Medicine; Visit Provider Specialist
DX: G35 Multiple sclerosis (principal)
CPT/HCPCS: 70553; A9577

== ENCOUNTER 2023-04-20 07:24 | Outpatient (CLI) | payer MEDICARE, MEDICAID, SELFPAY ==
[2021-10-17 18:57] VITALS: BP 123/82; BMI 34.3
--- NOTE | 2023-04-20 07:15 | MR_ITS ---
WS: [id number] MRI THORACIC SPINE WITH CONTRAST TECHNIQUE: Sagittal T1, T2 and STIR imaging. Axial T2 imaging. Post gadolinium imaging was obtained. CLINICAL INFORMATION: G35 - Multiple sclerosis COMPARISON: MRI April 30, 2020 FINDINGS: Mild thoracic kyphosis. No acute compression. Disc space narrowing worse at T7-T8 and T8-T9. Stable a ppearing central protrusion at T8-T9 with slight contact of the thoracic cord. Small amount of stable myelomalacia at this level. Otherwise no suspicious demyelinating lesions within the thoracic cord. No enhancing lesions to indic ate active disease. No significant cord atrophy. Normal caliber thoracic aorta. Mild facet arthropath y in the lower thoracic spine. MR/MR thoracic spine wo/w [id number] IMPRESSION: 1. No suspicious lesions within the thoracic cord. No enhancing lesions to ind icate active demyelinating disease. 2. No significant cord atrophy. 3. Disc space narrowing worse at T7-T8 and T8-T9 4. Small central protrusion T8-T9 with slight contact with indentation on the thoracic cord is unchanged. Trace myelomalacia in the cord at this level is unc hanged. 5. No other acute findings.
[2023-04-20] MEDS: gadobenate dimeglumine 20 mL vial IV (08:19)
== END 2023-04-20 07:25 | disposition home or self-care (01) ==
LOC: RAD 07:25
PROVIDERS: PCP Family Medicine; Visit Provider Specialist
DX: G35 Multiple sclerosis (principal); M47.14 Other spondylosis with myelopathy, thoracic region; M51.24 Other intervertebral disc displacement, thoracic region
CPT/HCPCS: 72157; A9577

== ENCOUNTER 2023-05-03 08:54 | Oncology outpatient (recurring) (ONCR) | payer MEDICARE, MEDICAID, SELFPAY ==
[2021-10-17 18:57] VITALS: BP 123/82; BMI 34.3
[2023-05-03 09:20] VITALS: BP 113/77; PULSE 85; RESP 16; TEMP 36.8; O2SAT 96
[2023-05-03] MEDS: acetaminophen 500 mg Tablet 1000 MG PO (09:34)
[2023-05-03] MEDS: methylPREDNISolone sod succ 125 mg SDV IVP (09:34)
[2023-05-03] MEDS: sodium chloride 0.9% 250 ML 75 ML IV (09:34)
[2023-05-03] MEDS: diphenhydrAMINE 50 mg/mL SDV 1mL 25 MG IVP (09:35)
[2023-05-03] MEDS: ocrelizumab 600 MG in sodium chloride 0.9% 500 ML 100 MG IV (10:04)
[2023-05-03 10:05] VITALS: BP 104/66; PULSE 78; RESP 16; TEMP 37.1; O2SAT 97
[2023-05-03 10:25] VITALS: BP 99/60; PULSE 70; RESP 16; TEMP 36.9; O2SAT 95
[2023-05-03 10:40] VITALS: BP 100/60; PULSE 78; RESP 16; TEMP 36.9; O2SAT 92
[2023-05-03 11:10] VITALS: BP 111/65; PULSE 71; RESP 16; TEMP 36.9; O2SAT 92
[2023-05-03 13:20] VITALS: BP 110/70; PULSE 81; RESP 16; TEMP 36.9; O2SAT 97
== END 2023-05-03 23:59 | disposition home or self-care (01) ==
LOC: ONCMED 08:55
PROVIDERS: PCP Family Medicine; Visit Provider Internal Medicine Medical Oncology
DX: G35 Multiple sclerosis (principal)
CPT/HCPCS: 96375; 96413; 96415; J1200; J2350; J2930; J7040; J7050

== ENCOUNTER → 2023-05-10 14:46 | Outpatient (BNVA) | payer MEDICARE, MEDICAID, SELFPAY ==
[2023-05-07 10:45] VITALS: BP 123/82; BMI 34.3
== END ==
PROVIDERS: PCP Family Medicine; Visit Provider Specialist
DX: G43.711 Chronic migraine without aura, intractable, with status migrainosus (principal); G35 Multiple sclerosis
CPT/HCPCS: 64615; 99213

== ENCOUNTER 2023-05-21 15:02 | Outpatient (CLI) | payer MEDICARE, MEDICAID, SELFPAY ==
[2023-05-07 10:45] VITALS: BP 123/82; BMI 34.3
[2023-05-21 16:07] LABS: Basophils # 0.1 10^3/uL (0.0-0.1); Eosinophils # 0.1 10^3/uL (0.0-0.8); Eosinophils % 1.7 %; Hemoglobin 14.5 g/dL (11.5-15.3); Lymphocytes # 2.7 10^3/uL (0.8-4.8); Lymphocytes % 39.4 %; Mean Corpuscular Hemoglobin 32.4 pg (28.0-34.0); Mean Corpuscular Volume 98.2 fl (81-99); Mean Platelet Volume 9.9 fL (7.4-10.4); Monocytes # 0.6 10^3/uL (0.2-0.9); Monocytes % 8.1 %; Neutrophils # 3.42 10^3/uL (1.8-7.7); Neutrophils % 49.5 %; Nucleated Red Blood Cells % 0 %; Platelet Count 286 10^3/cmm (130-400); Red Blood Count 4.48 10^6/uL (4.1-5.3); Red Cell Distribution Width 12.5 % (12.1-15.1); White Blood Count 6.9 10^3/uL (4.0-10.0)
[2023-05-21 16:21] LABS: Slide Review Slide Review Perform
[2023-05-21 16:31] LABS: Albumin Level 4.2 g/dL (3.5-5.2); Anion Gap 14.6 (5-19); Blood Urea Nitrogen 13 mg/dL (6-20); Calcium 9.9 mg/dL (8.5-10.5); Carbon Dioxide 28 mmol/L (22-29); Chloride 103 mmol/L (98-107); Glomerular Filtration Rate 105.8 mL/min (90-130); Glucose 78 mg/dL (65-115); Potassium 3.6 mmol/L (3.5-5.1); Sodium 142 mmol/L (136-145)
[2023-05-21 16:32] LABS: Calcium 9.9 mg/dL (8.5-10.5)
[2023-05-21 16:38] LABS: Parathyroid Hormone 36.7 pg/mL (15-65)
[2023-05-27 12:34] LABS: Vit D 1,25 (Oh)2, Total 54 pg/mL (18-72); Vit D2 1,25 (Oh)2 <8 pg/mL; Vit D3 1,25 (Oh)2 54 pg/mL
== END 2023-05-21 15:03 | disposition home or self-care (01) ==
LOC: LAB 15:12
PROVIDERS: PCP Family Medicine; Visit Provider Registered Nurse
DX: N18.31 Chronic kidney disease, stage 3a (principal); E55.9 Vitamin D deficiency, unspecified
CPT/HCPCS: 36415; 80069; 82310; 82652; 83970; 85025

== ENCOUNTER → 2023-06-06 10:18 | Outpatient (BNVA) | payer MEDICARE, MEDICAID, SELFPAY ==
[2023-05-07 10:45] VITALS: BP 123/82; BMI 34.3
== END ==
PROVIDERS: PCP Family Medicine; Visit Provider Specialist
DX: G35 Multiple sclerosis; G43.711 Chronic migraine without aura, intractable, with status migrainosus; M47.24 Other spondylosis with radiculopathy, thoracic region; M47.14 Other spondylosis with myelopathy, thoracic region; F17.200 Nicotine dependence, unspecified, uncomplicated; Z79.899 Other long term (current) drug therapy
CPT/HCPCS: 99214

== ENCOUNTER 2023-06-28 14:39 | Oncology outpatient (recurring) (ONCR) | payer MEDICARE, MEDICAID, SELFPAY ==
[2023-05-07 10:45] VITALS: BP 123/82; BMI 34.3
== END 2023-07-21 23:59 | disposition home or self-care (01) ==
PROVIDERS: PCP Family Medicine; Visit Provider Internal Medicine Medical Oncology
DX: Z53.9 Procedure and treatment not carried out, unspecified reason (principal)

== ENCOUNTER → 2023-07-26 14:51 | Outpatient (BNVA) | payer MEDICARE, MEDICAID, SELFPAY ==
[2023-07-26 16:19] VITALS: BP 123/82; BMI 34.3
== END ==
PROVIDERS: PCP Family Medicine; Visit Provider Specialist
DX: G35 Multiple sclerosis (principal); M79.7 Fibromyalgia; G43.711 Chronic migraine without aura, intractable, with status migrainosus; R20.0 Anesthesia of skin
CPT/HCPCS: 99214; 99215

== ENCOUNTER → 2023-08-09 14:44 | Outpatient (BNVA) | payer MEDICARE, MEDICAID, SELFPAY ==
[2023-07-26 16:19] VITALS: BP 123/82; BMI 34.3
== END ==
PROVIDERS: PCP Family Medicine; Visit Provider Specialist
DX: G43.709 Chronic migraine without aura, not intractable, without status migrainosus (principal); G35 Multiple sclerosis
CPT/HCPCS: 64615; 99212

== ENCOUNTER → 2023-09-25 12:45 | Outpatient (BNVA) | payer MEDICARE, MEDICAID, SELFPAY ==
[2023-07-26 16:19] VITALS: BP 123/82; BMI 34.3
== END ==
PROVIDERS: PCP Family Medicine; Referring Provider Family Medicine; Visit Provider Specialist
DX: Z53.21 Procedure and treatment not carried out due to patient leaving prior to being seen by health care provider (principal)
CPT/HCPCS: G0463

== ENCOUNTER 2023-11-27 07:50 | Oncology outpatient (recurring) (ONCR) | payer MEDICARE, MEDICAID, SELFPAY ==
[2023-07-26 16:19] VITALS: BP 123/82; BMI 34.3
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
[2023-11-27] MEDS: acetaminophen 500 mg Tablet 1000 MG PO (08:44)
[2023-11-27] MEDS: sodium chloride 0.9% 250 ML 75 ML IV (08:45)
[2023-11-27] MEDS: diphenhydrAMINE 50 mg/mL SDV 1mL 25 MG IVP (08:49)
[2023-11-27] MEDS: methylPREDNISolone sod succ 125 mg SDV IVP (08:55)
[2023-11-27 09:35] VITALS: BP 98/57; PULSE 68; RESP 16; TEMP 36.1; O2SAT 98
[2023-11-27] MEDS: ocrelizumab 600 MG in sodium chloride 0.9% 500 ML 40 MG IV (09:35)
[2023-11-27 10:05] VITALS: BP 120/53; PULSE 52; RESP 16; TEMP 35.9; O2SAT 98
[2023-11-27 10:35] VITALS: BP 97/61; PULSE 56; RESP 14; TEMP 36.1; O2SAT 98
[2023-11-27 11:05] VITALS: BP 99/62; PULSE 55; RESP 16; TEMP 36.6; O2SAT 99
[2023-11-27 11:35] VITALS: BP 95/55; PULSE 59; RESP 16; TEMP 36.1; O2SAT 97
[2023-11-27 13:50] VITALS: BP 100/58; PULSE 66; RESP 16; TEMP 36.1; O2SAT 96
== END 2023-11-27 23:59 | disposition home or self-care (01) ==
PROVIDERS: PCP Family Medicine; Visit Provider Specialist
DX: G35 Multiple sclerosis (principal)
CPT/HCPCS: 96375; 96413; 96415; A4222; J1200; J2350; J2930; J7040; J7050

== ENCOUNTER → 2023-12-04 11:08 | Outpatient (BNVA) | payer MEDICARE, MEDICAID, SELFPAY ==
[2023-07-26 16:19] VITALS: BP 123/82; BMI 34.3
== END ==
PROVIDERS: PCP Family Medicine; Visit Provider Podiatrist Foot & Ankle Surgery
DX: M76.821 Posterior tibial tendinitis, right leg (principal); G57.91 Unspecified mononeuropathy of right lower limb; Z46.89 Encounter for fitting and adjustment of other specified devices
CPT/HCPCS: 97760; 99213; L4361

== ENCOUNTER 2023-12-04 14:40 | Outpatient (CLI) | payer MEDICARE, MEDICAID, SELFPAY ==
[2023-07-26 16:19] VITALS: BP 123/82; BMI 34.3
== END 2023-12-04 14:41 | disposition home or self-care (01) ==
LOC: SPT 14:41
PROVIDERS: PCP Family Medicine; Visit Provider Podiatrist Foot & Ankle Surgery
DX: Z46.89 Encounter for fitting and adjustment of other specified devices (principal); M76.821 Posterior tibial tendinitis, right leg
CPT/HCPCS: 97760; L4361

== ENCOUNTER → 2023-12-11 09:30 | Outpatient (BNVA) | payer MEDICARE, MEDICAID, SELFPAY ==
[2023-07-26 16:19] VITALS: BP 123/82; BMI 34.3
== END ==
PROVIDERS: PCP Family Medicine; Visit Provider Specialist
DX: R20.0 Anesthesia of skin (principal); R20.2 Paresthesia of skin
CPT/HCPCS: 95913

== ENCOUNTER → 2023-12-27 12:56 | Outpatient (BNVA) | payer MEDICARE, MEDICAID, SELFPAY ==
[2023-07-26 16:19] VITALS: BP 123/82; BMI 34.3
== END ==
PROVIDERS: PCP Family Medicine; Visit Provider Specialist
DX: G43.711 Chronic migraine without aura, intractable, with status migrainosus (principal); G35 Multiple sclerosis
CPT/HCPCS: 64615; 99212

== ENCOUNTER 2024-01-02 11:28 | Oncology outpatient (recurring) (ONCR) | payer MEDICARE, MEDICAID, SELFPAY ==
[2023-07-26 16:19] VITALS: BP 123/82; BMI 34.3
[2024-01-02] MEDS: ondansetron 2 mg/ML SDV 2 mL 4 MG IVP (12:06)
[2024-01-02] MEDS: diphenhydrAMINE 50 mg/mL SDV 1mL 25 MG IVP (12:10)
[2024-01-02 12:11] VITALS: BP 105/57; PULSE 82; RESP 16; O2SAT 96
[2024-01-02] MEDS: dihydroergotamine 1 mg/mL Inj 0.5 MG IVP ×4 (12:21→14:09)
--- NOTE | 2024-01-02 12:22 | PC.NURSE ---
patient reports that her pain level with her migraine is 9/10, DHE protocol started per order
[2024-01-02 12:32] VITALS: BP 116/67; PULSE 78; RESP 18; O2SAT 97
--- NOTE | 2024-01-02 12:59 | PC.NURSE ---
patient reports no change in pain, 9/10 headache. Next dose of DHE given per protocol
[2024-01-02 13:05] VITALS: BP 116/61; PULSE 57; RESP 16; O2SAT 99
--- NOTE | 2024-01-02 13:27 | PC.NURSE ---
patient reports pain level 9/10, next dose of DHE given
[2024-01-02 13:37] VITALS: BP 106/72; PULSE 57; RESP 16; O2SAT 99
--- NOTE | 2024-01-02 14:10 | PC.NURSE ---
patient reports pain level 7/10, next dose of DHE given per protocol
[2024-01-02 14:14] VITALS: BP 113/67; PULSE 62; RESP 16; O2SAT 97
--- NOTE | 2024-01-02 14:30 | PC.NURSE ---
patient reports no pain at this time. IV removed and patient discharged home.
[2024-01-02 14:31] VITALS: BP 118/58; PULSE 67; RESP 17; TEMP 36.4; O2SAT 99
== END 2024-01-20 23:59 | disposition home or self-care (01) ==
PROVIDERS: PCP Family Medicine; Visit Provider Specialist
DX: G43.711 Chronic migraine without aura, intractable, with status migrainosus (principal)
CPT/HCPCS: 96374; 96375; J1110; J1200; J2405

== ENCOUNTER → 2024-01-07 12:53 | Outpatient (BNVA) | payer MEDICARE, MEDICAID, SELFPAY ==
[2023-07-26 16:19] VITALS: BP 123/82; BMI 34.3
== END ==
PROVIDERS: PCP Family Medicine; Visit Provider Podiatrist Foot & Ankle Surgery
DX: M76.821 Posterior tibial tendinitis, right leg (principal); G57.91 Unspecified mononeuropathy of right lower limb
CPT/HCPCS: 99213

== ENCOUNTER 2024-02-12 16:35 | Outpatient (CLI) | payer MEDICARE, MEDICAID, SELFPAY ==
[2023-07-26 16:19] VITALS: BP 123/82; BMI 34.3
--- NOTE | 2024-02-12 16:45 | MRR_ITS ---
PROCEDURE INFORMATION: Exam: MR Right Lower Extremity Joint Without Contrast; Ankle Exam date and time: 02/12/2024 4:44 PM Age: 49 years old Clinical indication: Pain; Ankle; Right TECHNIQUE: Imaging protocol: Magnetic resonance imaging of the right lower extremity without contrast. Exam focused on the ankle. COMPARISON: CR XR ankle RT min 3V* [id number] 09/22/2023 3:21 PM FINDINGS: Bones/joints: Subacute nondisplaced/subchondral fracture of the navicular subjacent to the talonavicular articular surface. No evidence of articular step-off. Tibiotalar and subtalar articulations are intact. No displaced fracture. Achilles enthesophyte noted. LIGAMENTS: Distal tibiofibular syndesmosis: Intact. Anterior talofibular ligament: Intact. Posterior talofibular ligament: Intact. Calcaneofibular ligament: Intact. Deltoid ligament complex: Intact. TENDONS: Flexor tendons of foot: Intact. Tibialis posterior tendon: Intact. Peroneal tendons: Intact. Extensor tendons of foot: Intact. Tibialis anterior tendon: Intact. Achilles tendon: Intact. Trace retrocalcaneal bursitis. Tarsal canal (Sinus tarsi): Unremarkable. Tarsal tunnel: Unremarkable. Soft tissues: Unremarkable. Plantar fascia: Plantar fascia is unremarkable. MR/MR ankle RT wo con* [id number] IMPRESSION: 1. Subacute nondisplaced/subchondral fracture of the navicular bone. 2. No evidence of ligamentous or tendon injury. 3. Trace retrocalcaneal bursitis.
== END 2024-02-12 16:36 | disposition home or self-care (01) ==
LOC: RAD 16:35
PROVIDERS: PCP Family Medicine; Visit Provider Podiatrist Foot & Ankle Surgery
DX: M76.821 Posterior tibial tendinitis, right leg (principal); M25.571 Pain in right ankle and joints of right foot; S92.254A Nondisplaced fracture of navicular [scaphoid] of right foot, initial encounter for closed fracture; X58.XXXA Exposure to other specified factors, initial encounter
CPT/HCPCS: 73721

== ENCOUNTER → 2024-02-25 13:08 | Outpatient (BNVA) | payer MEDICARE, MEDICAID, SELFPAY ==
[2023-07-26 16:19] VITALS: BP 123/82; BMI 34.3
== END ==
PROVIDERS: PCP Family Medicine; Visit Provider Podiatrist Foot & Ankle Surgery
DX: M79.671 Pain in right foot (principal); S92.254S Nondisplaced fracture of navicular [scaphoid] of right foot, sequela; X58.XXXS Exposure to other specified factors, sequela
CPT/HCPCS: 73630; 99213

== ENCOUNTER 2024-02-27 10:31 | Outpatient (CLI) | payer MEDICARE, MEDICAID, SELFPAY ==
[2023-07-26 16:19] VITALS: BP 123/82; BMI 34.3
--- NOTE | 2024-02-27 11:00 | MR_ITS ---
WS: [id number] MR CERVICAL SPINE WO/W COMPARISON: MRI 2018 HISTORY: M43.12 - Spondylolisthesis, cervical region TECHNIQUE: Sagittal T1, T2 and T2 inversion recovery; axial T2, T2 gradient and fiesta. Post gadolini um imaging with fat saturation technique. FINDINGS:Straightening of the normal cervical lordosis. No high grade central canal narrowing. Straightening of normal cervical lordosis. Mild spondylitic changes. Mild disc bulging C5-C6 and C6-C 7. No high-grade central canal stenosis. No visualized demyelinating lesions in the cervical cord. No enhancing lesions. No significant cord atrophy. C2-3: Spinal canal and foramen are patent. C3-4: Mild facet arthropathy. Spinal canal and foramen are patent. C4-5: Mild facet arthropathy. Spinal canal and foramen are patent. C5-6: Disc osteophyte complex with endplate ridging. Slight contact of the LEFT ventral cervical cord . Mild to moderate LEFT greater than RIGHT bony foraminal narrowing. Uncovertebral joint hypertrophy. Mild facet arthropathy. C6-7: Disc osteophyte protrusion with slight contact of the cervical cord progressed compared to prev ious. Mild central canal stenosis. Moderate LEFT and mild RIGHT bony foraminal narrowing. Mild facet arthropathy. C7-T1: Spinal canal and foramen are patent. MR/MR cervical spine wo/w [id number] IMPRESSION: 1. No demyelinating lesions in the cervical cord. No enhancing lesions. 2. No significant cord atrophy. 3. Progressed central disc osteophyte protrusion C6-7 with slight contact of t he cervical cord and mild central canal stenosis. Moderate LEFT bony foraminal narrowing at this level. 4. LEFT paracentral disc osteophyte complex C5-C6 with slight contact of the L EFT ventral cervical cord appears stable. Mild to moderate LEFT greater than RI GHT bony foraminal narrowing.
--- NOTE | 2024-02-27 11:45 | MR_ITS ---
WS: [id number] MRI HEAD WITH CONTRAST TECHNIQUE: Sagittal T1, T2 axial, T2 axial FLAIR, axial susceptibility weighted imaging, axial diffus ion weighted images, and coronal T2 images were obtained. Pre and post-T1 axial and post T1 coronal i mages. ADC and FSPGR images. CLINICAL INFORMATION: M43.12 - Spondylolisthesis, cervical region COMPARISON: MRI 03/09/2023 FINDINGS: No evidence of restricted diffusion to suggest acute ischemia. Ventricular system and basal cisterns are patent. Mild patchy supratentorial periventricular and pericallosal white matter changes compatib le with history of demyelinating disease. No enhancing lesions to indicate active disease. The number and distribution of lesions is not significantly changed compared to 2022. No significant disease progression compared to previous. No abnormal gadolinium enhancement to indicate active disea se. Mild T1 hypointense lesion load. Mild parenchymal volume loss. No significant atrophy of the corpus c allosum. Normal optic chiasm and pituitary infundibulum. Temporal lobes and hippocampal formations ar e normal in appearance. No hemosiderin on susceptibly weighted images. MR/MR head wo/w con [id number] IMPRESSION: 1. No evidence of restricted diffusion to suggest acute ischemia. 2. Stable mild to moderate supratentorial white matter changes compatible with history of demyelinating disease. 3. No significant progression compared to previous. 4. No enhancing lesions. 5. Mild T1 hypointense lesion load. 6. Mild parenchymal volume loss.
== END 2024-02-27 10:32 | disposition home or self-care (01) ==
LOC: RAD 10:32
PROVIDERS: PCP Family Medicine; Visit Provider Specialist
DX: M43.12 Spondylolisthesis, cervical region (principal); G35 Multiple sclerosis; M50.223 Other cervical disc displacement at C6-C7 level; M48.02 Spinal stenosis, cervical region
CPT/HCPCS: 70553; 72156; A9577

== ENCOUNTER → 2024-04-07 14:27 | Outpatient (BNVA) | payer MEDICARE, MEDICAID, SELFPAY ==
[2023-07-26 16:19] VITALS: BP 123/82; BMI 34.3
== END ==
PROVIDERS: PCP Family Medicine; Visit Provider Podiatrist Foot & Ankle Surgery
DX: S92.254 Nondisplaced fracture of navicular [scaphoid] of right foot; X58.XXXD Exposure to other specified factors, subsequent encounter
CPT/HCPCS: 73630; 99213

== ENCOUNTER 2024-04-08 06:00 | Outpatient (CLI) | payer MEDICARE, MEDICAID, SELFPAY ==
[2023-07-26 16:19] VITALS: BP 123/82; BMI 34.3
== END 2024-04-08 06:01 | disposition home or self-care (01) ==
LOC: RAD 06-25 12:58
PROVIDERS: PCP Family Medicine; Visit Provider Podiatrist Foot & Ankle Surgery
DX: M54.2 Cervicalgia (principal); M54.16 Radiculopathy, lumbar region
CPT/HCPCS: 72040; 99204

== ENCOUNTER → 2024-04-10 15:45 | Outpatient (BNVA) | payer MEDICARE, MEDICAID, SELFPAY ==
[2023-07-26 16:19] VITALS: BP 123/82; BMI 34.3
== END ==
PROVIDERS: PCP Family Medicine; Visit Provider Specialist
DX: G43.711 Chronic migraine without aura, intractable, with status migrainosus (principal); G35 Multiple sclerosis
CPT/HCPCS: 64615; 99212

== ENCOUNTER 2024-04-21 08:37 | Outpatient (CLI) | payer MEDICARE, MEDICAID, SELFPAY ==
[2023-07-26 16:19] VITALS: BP 123/82; BMI 34.3
--- NOTE | 2024-04-21 09:00 | CT_ITS ---
WS: [id number] CT RIGHT FOOT, NONCONTRAST HISTORY: S92.251A - Displaced fracture of navicular [scaphoid] of ... Technique: All CT scans at [facility] use at least one of these dose optimization techniques: automated exposure control; mA and/or kV adjustment per patient size (includes targeted exams where dose is matched to clinical indication); or iterative reconstruction. DLP: 141.79 mGy.cm COMPARISON: MRI 02/12/2024 Healing fracture with sclerosis involving the navicular bone within the midfoot. Sclerosis is along t he more proximal surface of the navicular and the dorsal surface. There is a very small well-circumsc ribed bony fragment near the talonavicular articulation, 2 to 3 mm. No displacement otherwise. The na vicular fracture line is healing appropriately. There is an additional lucency within the anterior ca lcaneal process which is seen only on one slice. Indeterminate for healed fracture. There is no displ acement. No additional fractures or osseous abnormalities are identified. The talus is normal. No significant joint effusion. CT/CT foot RT wo con* [id number] IMPRESSION: 1. Healing fracture involving the navicular. No displacement. There is a tiny osseous fragment measuring 2 to 3 mm at the talonavicular articulation. 2. Indeterminate, healed fracture at the anterior calcaneal process.
== END 2024-04-21 08:38 | disposition home or self-care (01) ==
LOC: RAD 08:38
PROVIDERS: PCP Family Medicine; Visit Provider Podiatrist Foot & Ankle Surgery
DX: S92.251A Displaced fracture of navicular [scaphoid] of right foot, initial encounter for closed fracture (principal); X58.XXXA Exposure to other specified factors, initial encounter; Z87.81 Personal history of (healed) traumatic fracture
CPT/HCPCS: 73700

== ENCOUNTER → 2024-05-19 09:19 | Outpatient (BNVA) | payer MEDICARE, MEDICAID, SELFPAY ==
[2023-07-26 16:19] VITALS: BP 123/82; BMI 34.3
== END ==
PROVIDERS: PCP Family Medicine; Visit Provider Podiatrist Foot & Ankle Surgery
DX: S92.254D Nondisplaced fracture of navicular [scaphoid] of right foot, subsequent encounter for fracture with routine healing; X58.XXXD Exposure to other specified factors, subsequent encounter
CPT/HCPCS: 73630; 99213

== ENCOUNTER 2025-09-30 12:54 | Outpatient (CLI) | payer MEDICARE, SELFPAY ==
[2023-07-26 16:19] VITALS: BP 123/82; BMI 34.3
--- NOTE | 2025-09-30 13:03 | CT_ITS ---
WS: [email or web address] CT ABDOMEN AND PELVIS WITH CONTRAST HISTORY: LOWER ABDOMINAL PAIN TECHNIQUE: Imaging performed of the abdomen and pelvis with IV contrast. Single phase imaging of the abdomen. Coronal and sagittal reformats are submitted. All CT scans at [facility] use at least one of these dose optimization techniques: automated exposure control; mA and/or kV adjustment per patient size (includes targeted exams where dose is matched to clinical indication); or iterative reconstruction. IV CONTRAST: Omnipaque 350; 100 mL IV. Oral contrast: No DLP: 431.92 mGy.cm COMPARISON: 05/01/2022 Lower thorax: Lung bases are clear. Heart is normal size. No hiatal hernia. Liver/biliary system: Normal size liver. Low-attenuation nodule in the central liver is probably a small cyst adjacent to the posterior LEFT hepatic vein. There is an additional similar low-attenuation nodule measuring 3 mm towards the dome of the liver. Normal portal vein. Gallbladder: Cholecystectomy. Pancreas: Normal size pancreas and pancreatic duct. No adjacent inflammation. Spleen: Normal size spleen. No mass or infarct. Adrenal glands: Normal. Right kidney: Normal. Left kidney: Normal size kidney. No obstruction. Too small to characterize cortical hypodensities. Aorta: Normal. Lymphadenopathy: None. Free fluid: None. GI tract: No obstruction. Prior gastric sleeve. Normal appendix. There is a small amount of increased fluid in the RIGHT colon and transverse colon. There are a few diverticula in the descending and sigmoid colon. No acute diverticulitis. Abdominal wall: Unremarkable abdominal wall. No hernia. Pelvis: No free fluid or adenopathy within the pelvis. Prior hysterectomy. Bones: Unremarkable. CT/CT abdomen pelvis w con* [id number] IMPRESSION: 1. No GI tract obstruction. 2. Increased in the descending and transverse colon which can be seen with col itis. No focal inflammation or diverticulitis. 3. Normal appendix. 4. No free fluid or free air. 5. No renal obstruction. 6. Prior cholecystectomy.
[2025-09-30] MEDS: iohexol 350 mg/mL 500 mL Btl (per mL) IV (13:30)
== END 2025-09-30 12:55 | disposition home or self-care (01) ==
LOC: RAD 13:00
PROVIDERS: PCP Family Medicine; Visit Provider Family Medicine
DX: R10.30 Lower abdominal pain, unspecified (principal); Z90.49 Acquired absence of other specified parts of digestive tract; R63.8 Other symptoms and signs concerning food and fluid intake
CPT/HCPCS: 74177